=== PATIENT | female | born 1950 | race Caucasian/White ===

== ENCOUNTER 2025-04-04 20:00 | Inpatient (IN) | payer MEDICARE, SELFPAY ==
[2025-04-04] VITALS (8 sets, daily range): BP systolic 97–129; BP diastolic 49–76; PULSE 62–84; RESP 13–20; TEMP 36.3; O2SAT 91–98; BMI 31.7
--- NOTE | ~2025-04-04 | CT_ITS ---
EXAMINATION: CTA chest abdomen pelvis DATE: 04/04/2025 20:43 INDICATION: Chest pain TECHNIQUE: Computed tomographic angiography (CTA) of the chest, abdomen, and pelvis was performed without and with 100 mL Omnipaque-350 intravenous contrast. Additional 3D reconstructions utilizing coronal maximum intensity projection (MIP) were performed. Automated exposure control and iterative reconstruction technique were employed. The dose-length product was 1559.92 mGy-cm. COMPARISON: None FINDINGS: Chest: Cluster of four 4-6 mm pulmonary nodules in the posterior lingula which are most likely infectious/inflammatory in etiology. Mild dependent atelectasis in the bilateral lower lobes. No pneumonia, pulmonary edema, pleural effusion or pneumothorax. Heart size is normal. Atherosclerotic coronary artery ca lcification. No pericardial effusion. Thoracic aorta is normal in caliber with no dissection. Mild thoracic levocurvature with mild spondylosis and bridging osteophytes at multiple levels consistent with diffuse idiopathic skeletal hyperostosis (DISH). Abdomen and pelvis: Gallbladder is not visualized and likely sequela of absent. Liver, spleen, pancreas and bilateral adrenal glands are normal. There are regions of cortical scarring at both kidneys consistent with sequela of prior infection or infarction. 8 mm cyst at the upper pole of the right kidney. Fluid throughout the colon consistent with diarrhea. There is moderate sigmoid predominant diverticulosis without adjacent inflammatory change to suggest diverticulitis. There is edematous-appearing wall thickening along the sigmoid colon suspicious for colitis which could be infectious or inflammatory in etiology. No bowel obstruction. Bladder is normal. The uterus is not identified and has likely been surgically resected. Small amount of either reactive or physiologic free fluid in the pelvis. No abscess or free intraperineal gas. No pathologically enlarged abdominal or pelvic lymphadenopathy. There is small amount of nonhemodynamically significant calcified atherosclerosis of the normal caliber aorta and many of the other arteries. No aortic dissection. Mild thoracolumbar levocurvature with severe lumbar spondylosis. 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 IMPRESSION: 1. Normal caliber thoracic and abdominal aorta with no dissection. 2. Cluster of a few 4-6 mm pulmonary nodules at the posterior lingula which most likely infectious/inflammatory in etiology. If the patient is low risk for lung cancer, no follow-up is needed. If the patient is high risk (i.e., history of smoking or asbestos or significant radiation exposure), optional follow-up chest CT could be considered at 12 months. 3. Edematous-appearing wall thickening along the sigmoid colon suspicious for colitis which could be infectious or inflammatory in etiology. There are however numerous diverticula along the sigmoid colon and this could represent scarring related to chronic diverticulitis. 4. Finally physiologic or reactive free fluid in the pelvis. Reviewed, dictated and finalized at location A. IMPRESSION: 1. Normal caliber thoracic and abdominal aorta with no dissection. 2. Cluster of a few 4-6 mm pulmonary nodules at the posterior lingula which mos t likely infectious/inflammatory in etiology. If the patient is low risk for raquel ng cancer, no follow-up is needed. If the patient is high risk (i.e., history o f smoking or asbestos or significant radiation exposure), optional follow-up est CT could be considered at 12 months. 3. Edematous-appearing wall thickening along the sigmoid colon suspicious for c olitis which could be infectious or inflammatory in etiology. There are however numerous diverticula along the sigmoid colon and this could represent scarring related to chronic diverticulitis. 4. Finally physiologic or reactive free fluid in the pelvis.
--- NOTE | ~2025-04-04 | CT_ITS ---
EXAMINATION: CT brain wo con DATE: 04/04/2025 20:39 INDICATION: Altered mental status. Syncope. TECHNIQUE: Computed tomography (CT) of the head was performed without intravenous contrast. Sagittal and coronal reconstructions were performed. The mA was adjusted according to patient size. Iterative reconstruction technique was employed. The dose-length product was 605.33 mGy-cm. COMPARISON: None FINDINGS: Right ventricular shunt catheter extending through the anterior right frontal hannah hole with distal tip in the anterior horn of the right lateral ventricle. No acute intracranial hemorrhage, acute infarction or abnormal extra axial fluid collection. There is mild scattered white matter hypoattenuation consistent with chronic small vessel ischemic disease. Symmetric prominence of the sulci and subarachnoid spaces overlying the convexities consistent with moderate age- appropriate diffuse cerebral volume loss. Ventricles are normal and symmetric. No mass/mass effect. Intracranial calcified cerebral atherosclerosis is noted. Changes of bilateral intraocular lens replacement. The orbits, paranasal sinuses and mastoid air cells are normal. IMPRESSION: 1. Age-related changes including moderate diffuse volume loss and mild scattered white matter hypoattenuation consistent with chronic small vessel ischemic disease. No acute intracranial process. 2. Right ventricular shunt catheter with tip in the anterior horn of the right lateral ventricle. Reviewed, dictated and finalized at location A. IMPRESSION: 1. Age-related changes including moderate diffuse volume loss and mild scattere d white matter hypoattenuation consistent with chronic small vessel ischemic di sease. No acute intracranial process. 2. Right ventricular shunt catheter with tip in the anterior horn of the right lateral ventricle.
--- NOTE | ~2025-04-04 | US_ITS ---
EXAMINATION: US carotid duplex BI DATE: 04/05/2025 12:35 INDICATION: Syncope TECHNIQUE: Grayscale, color Doppler, and pulsed Doppler images of the cervical carotid arteries were obtained. The degree of vessel stenosis is placed in one of the following categories: normal, <50%, 50-69%, >=70% but less than near- occlusion, near-occlusion, or total occlusion. Note that percent stenosis relative to normal distal artery lumen diameter is indirectly measured from velocity measurements as described by Reyes, et al. Radiology 2003; 229:340-346. COMPARISON: None. FINDINGS: RIGHT: The right common carotid artery (CCA) peak systolic velocity (PSV) is 137 cm/s. The right internal carotid artery (ICA) PSV is 127 cm/s. The right ICA end- diastolic velocity (EDV) is 21 cm/s. The right ICA/CCA PSV ratio is 0.9. Grayscale and color Doppler images including secondary Doppler criteria yield an estimate of <50% diameter reduction from plaque in the ICA. The external carotid artery (ECA) PSV is 164 cm/s. There is antegrade flow in the right vertebral artery. LEFT: The left CCA PSV is 143 cm/s. The left ICA PSV is 180 cm/s. The left ICA EDV is 15 cm/s. The left ICA/CCA PSV ratio is 1.3. Grayscale and color Doppler images yield an estimate of 50-69% diameter reduction from plaque in the ICA. The ECA PSV is 188 cm/s. There is antegrade flow in the left vertebral artery. IMPRESSION: 1. <50% stenosis in the right internal carotid artery. 2. 50-69% stenosis in the left internal carotid artery. Reviewed, dictated and finalized at location A.
--- NOTE | ~2025-04-04 | XR_ITS ---
EXAMINATION: XR chest 1V portable DATE: 04/04/2025 20:13 INDICATION: ST elevation myocardial infarction TECHNIQUE: frontal view of the chest was obtained. COMPARISON: None FINDINGS: The lungs are clear with no focal airspace opacities, pulmonary edema, pleural effusion or pneumothorax. Heart size is normal. Distal tip of a ventriculoatrial shunt projects over the right atrium. Bilateral rotator cuff arthropathy with severe right-sided mild to moderate left-sided glenohumeral osteoarthritis. IMPRESSION: 1. No acute cardiopulmonary disease. Reviewed, dictated and finalized at location A.
--- NOTE | 2025-04-04 19:58 | ECG_ITS ---
Test Date: 2025-04-04 22:09:22 Measurements Intervals [place] Rate: 69 P: 0 OR: 0 QRS: 53 QRSD: 90 T: -2 QT: 397 QTc: 425 Interpretive Statements ATRIAL FIBRILLATION POSSIBLE INFERIOR MYOCARDIAL INFARCTION BORDERLINE ST-T WAVE ABNORMALITY- ANTEROLAT/HIGH LAT LEADS BASELINE ARTIFACT- I, II, III, AVR, AVL, AVF, V1-6 ABNORMAL ECG Compared to ECG 04/04/2025 20:04:35 STEMI NO LONGER PRESENT Electronically Signed On 04-05-2025 05:15:44 CDT by Nima Foreman D.O.
[2025-04-04 20:12] LABS: Hematocrit 32.8 % (37.0-47.0); Hemoglobin 10.1 g/dL (12.0-15.0); Immature Granulocyte Percent A 0.3 % (0-0.5); Lymphocytes Absolute Auto 2.59 K/mm3 (0.9-3.2); Mean Corpuscular HGB Conc 30.8 g/dl (32-36); Mean Corpuscular Hemoglobin 28.1 pg (26-34); Mean Corpuscular Volume 91.1 fl (80-100); Nucleated Red Blood Cells Absolute Auto 0.000 K/mm3 (0.0-0.012); Nucleated Red Blood Cells Perc 0.0 % (0.0-0.2); Platelet Count Result 357 k/mm3 (150-375); Red Blood Count 3.60 M/mm3 (4.2-5.4); White Blood Count 10.1 K/mm3 (4.5-10.0)
[2025-04-04 20:24] LABS: Alanine Aminotransferase 12 U/L (6-35); Albumin Level 3.4 g/dL (3.5-5.1); Alkaline Phosphatase 74 U/L (38-126); Anion Gap 12 mmol/L (4-12); Aspartate Amino Transferase 12 U/L (14-36); Bilirubin,Total 0.3 mg/dL (0.2-1.3); Blood Urea Nitrogen 19 mg/dL (7-17); Calcium 8.3 mg/dL (8.4-10.2); Carbon Dioxide 14 mmol/L (22-30); Chloride 108 mmol/L (98-107); Cholesterol 115 mg/dL (0-200); Estimated Glomerular Filt Rate 41; Glucose 159 mg/dL (65-110); HDL Direct 26 mg/dL; INR 1.2; Partial Thromboplastin Time 36.0 Seconds (22.3-36.8); Potassium 3.8 mmol/L (3.4-5.0); Prothrombin Time 14.8 Seconds (11.1-14.7); Sodium 134 mmol/L (137-145); Total Protein 6.2 g/dL (6.3-8.2); Triglycerides 244 mg/dL (<150)
--- NOTE | 2025-04-04 20:27 | ED.AMS ---
HPI - Altered Mental Status General Chief Complaint: Altered Mental Status Stated Complaint: stemi/stroke Source: patient and EMS Mode of arrival: EMS Limitations: altered mental status History of Present Illness HPI narrative: This is a 75-year-old female with unknown past medical history who presents to the ED via EMS for altered mental status, chest pain. Per EMS, son witnessed the patient syncopized at 7:00 p.m. about hour prior to or on waking after she did begin to complain of chest pain. Patient is unsure what happened but she does not believe that she passed out. Patient does note that she has been having melena for the past 3 months, she is unsure if she saw anyone for that. Related Data Home Medications ?Medication ?Instructions ?Recorded ?Confirmed ?Last Taken ?Type acetaminophen 500 mg capsule 1,000 mg PO TID PRN fever or pain 04/04/25 04/04/25 Unknown History amlodipine 10 mg tablet 10 mg PO DAILY 04/04/25 04/04/25 04/04/25 History aspirin 81 mg tablet 81 mg PO DAILY 04/04/25 04/04/25 04/04/25 History atorvastatin 20 mg tablet 20 mg PO HS 04/04/25 04/04/25 04/03/25 History cholecalciferol (vitamin D3) 25 25 mcg PO DAILY 04/04/25 04/04/25 04/04/25 History mcg (1,000 unit) capsule colestipol 1 gram tablet 1 g PO DAILY 04/04/25 04/04/25 04/04/25 History diclofenac sodium 75 mg 75 mg PO BID 04/04/25 04/04/25 04/04/25 History tablet,delayed release hydralazine 50 mg tablet 50 mg PO BID 04/04/25 04/04/25 04/04/25 History hydrocodone 7.5 mg-acetaminophen 1 tablet PO Q6H PRN pain 04/04/25 04/04/25 04/04/25 History 325 mg tablet levetiracetam 500 mg tablet 500 mg PO BID 04/04/25 04/04/25 04/04/25 History levothyroxine 150 mcg tablet 150 mcg PO DAILY 04/04/25 04/04/25 04/04/25 History lorazepam 1 mg tablet 2 mg PO HS PRN anxiety 04/04/25 04/04/25 04/03/25 History melatonin 10 mg capsule 10 mg PO HS 04/04/25 04/04/25 04/03/25 History metoprolol tartrate 100 mg tablet 100 mg PO BID 04/04/25 04/04/25 04/04/25 History pantoprazole 40 mg tablet,delayed 40 mg PO BID 04/04/25 04/04/25 04/04/25 History release paroxetine HCl 10 mg tablet 10 mg PO DAILY 04/04/25 04/04/25 04/04/25 History valsartan 80 mg tablet 80 mg PO DAILY 04/04/25 04/04/25 04/04/25 History Allergies Allergy/AdvReac Type Severity Reaction Status Date / Time iodine Allergy Intermediate Itching Verified 04/04/25 22:35 Sulfa (Sulfonamide Allergy Unknown Unknown Verified 04/04/25 22:35 Antibiotics) [facility] Family History Family History (Updated 04/04/25 @ 22:40 by Rashida Gagnon RN) Mother Cancer, uterine Father Cardiac complications Cancer, colon Bypass graft stenosis Social History Social History Smoking packs per day: 0.5 Smoking cigarettes per day: 10.0 Years smoked: 15 Smoking pack-years: 7.50 Smoking status: Former smoker Tobacco type: cigarettes Alcohol intake: never Substance use: never Lack of Transportation: No Lack of Food: Never True Current Housing: I Have Housing Concerned About Future Housing: No Difficulty Paying Gas/Electric Bills: No Difficulty Paying for Meds: No Currently Unemployed: No Education: High School Diploma/GED Difficulty w/ Childcare or Family Care: No Spiritual care concerns: No Course Vital Signs Vital signs: Vital Signs Pulse Rate 67 04/04/25 20:00 Respiratory Rate 20 04/04/25 20:00 Blood Pressure 97/59 L 04/04/25 20:00 Pulse Oximetry 97 04/04/25 20:00 Oxygen Delivery Room Air 04/04/25 20:00 Temperature 98.2 F 04/05/25 00:00 Pulse Rate 100 04/05/25 02:34 Respiratory Rate 19 04/05/25 02:34 Blood Pressure 111/65 04/05/25 02:34 Pulse Oximetry 90 04/05/25 02:34 Oxygen Delivery Room Air 04/05/25 00:00 MDM - Altered Mental Status MDM Narrative Medical decision making narrative: 75-year-old female presenting syncope, chest pain, altered mental status. On initial evaluation, patient was in mild distress afebrile, hemodynamically stable. She was actively having chest pain. She did not recall the events of the day the this event but reported syncopal episode. She did recall that she had been having darker stools for the past 3 months intermittently. No focal deficits at this time. The EKG transmitted by EMS did show concerns for inferior wall STEMI. EKG performed here also showed the same. I discussed the case cardiology, Dr. Henry, given patient's melena, wanted to ensure that hemoglobin was within normal limits prior to labor economics teacher activation. Given the constellation of symptoms, is also imperative to rule out aortic dissection. Initial chest x-ray showed borderline widened mediastinum so CTA chest/abdomen/pelvis was performed with wet read performed my myself that showed no evidence of aortic dissection. Hemoglobin was 10.1. I discussed this with security operations engineer again will take patient to labor economics teacher. Did request patient be started on a heparin bolus. Differential Diagnosis Differential diagnosis: Likely other (ACS, stroke, aortic dissection) Medical Records Attestation: I reviewed the patient's medical records. Lab Data Attestation: I reviewed the patient's lab results. 04/04/25 20:06 04/04/25 20:06 Labs: Lab Results 04/04/25 04/04/25 04/04/25 Range/Units 20:06 20:06 20:06 WBC 10.1 H (4.5-10.0) K/mm3 RBC 3.60 L (4.2-5.4) M/mm3 Hgb 10.1 L (12.0-15.0) g/dL Hct 32.8 L (37.0-47.0) % MCV 91.1 (80-100) fl MCH 28.1 (26-34) pg MCHC 30.8 L (32-36) g/dl RDW 14.4 (11.5-14.5) % Plt Count 357 (150-375) k/mm3 MPV 11.0 H (7.4-10.4) fl Immature Gran % (Auto) 0.3 (0-0.5) % Neut % (Auto) 58.3 (45.5-73.1) % Lymph % (Auto) 25.6 (18.3-44.2) % [place] % (Auto) 12.7 H (2.6-8.5) % Eos % (Auto) 2.4 (0-4.4) % Baso % (Auto) 0.7 (0.2-1.2) % Lymph # (Auto) 2.59 (0.9-3.2) K/mm3 [place] # (Auto) 1.3 H (0.1-0.6) K/mm3 Eos # (Auto) 0.2 (0-0.3) K/mm3 Baso # (Auto) 0.1 (0.0-0.1) K/mm3 Abs Immat Gran (auto) 0.03 (0.00-0.031) K/mm3 Absolute Neuts (auto) 5.9 (1.3-6.7) K/mm3 Absolute Nucleated RBC 0.000 (0.0-0.012) K/mm3 Nucleated RBC % 0.0 (0.0-0.2) % PT 14.8 H (11.1-14.7) Seconds INR 1.2 APTT 36.0 (22.3-36.8) Seconds Sodium Cancelled 134 L Potassium Cancelled 3.8 Chloride Cancelled Carbon Dioxide Anion Gap BUN Creatinine Estim Creat Clear Calc Estimated GFR Glucose POC Capillary Glucose (65-105) mg/dl Calcium Total Bilirubin AST ALT Alkaline Phosphatase Troponin I (0.000-0.034) ng/mL Total Protein Albumin Triglycerides (<150) mg/dL Cholesterol (0-200) mg/dL LDL Cholesterol Direct mg/dL HDL Direct mg/dL Blood Type Antibody Screen 04/04/25 04/04/25 04/04/25 Range/Units 20:06 20:06 20:06 WBC (4.5-10.0) K/mm3 RBC (4.2-5.4) M/mm3 Hgb (12.0-15.0) g/dL Hct (37.0-47.0) % MCV (80-100) fl MCH (26-34) pg MCHC (32-36) g/dl RDW (11.5-14.5) % Plt Count (150-375) k/mm3 MPV (7.4-10.4) fl Immature Gran % (Auto) (0-0.5) % Neut % (Auto) (45.5-73.1) % Lymph % (Auto) (18.3-44.2) % [place] % (Auto) (2.6-8.5) % Eos % (Auto) (0-4.4) % Baso % (Auto) (0.2-1.2) % Lymph # (Auto) (0.9-3.2) K/mm3 [place] # (Auto) (0.1-0.6) K/mm3 Eos # (Auto) (0-0.3) K/mm3 Baso # (Auto) (0.0-0.1) K/mm3 Abs Immat Gran (auto) (0.00-0.031) K/mm3 Absolute Neuts (auto) (1.3-6.7) K/mm3 Absolute Nucleated RBC (0.0-0.012) K/mm3 Nucleated RBC % (0.0-0.2) % PT (11.1-14.7) Seconds INR APTT (22.3-36.8) Seconds Sodium Potassium Chloride 108 H Carbon Dioxide Cancelled 14 L Anion Gap Cancelled 12 BUN Cancelled Creatinine Estim Creat Clear Calc Estimated GFR Glucose POC Capillary Glucose (65-105) mg/dl Calcium Total Bilirubin AST ALT Alkaline Phosphatase Troponin I (0.000-0.034) ng/mL Total Protein Albumin Triglycerides (<150) mg/dL Cholesterol (0-200) mg/dL LDL Cholesterol Direct mg/dL HDL Direct mg/dL Blood Type Antibody Screen 04/04/25 04/04/25 04/04/25 Range/Units 20:06 20:06 20:06 WBC (4.5-10.0) K/mm3 RBC (4.2-5.4) M/mm3 Hgb (12.0-15.0) g/dL Hct (37.0-47.0) % MCV (80-100) fl MCH (26-34) pg MCHC (32-36) g/dl RDW (11.5-14.5) % Plt Count (150-375) k/mm3 MPV (7.4-10.4) fl Immature Gran % (Auto) (0-0.5) % Neut % (Auto) (45.5-73.1) % Lymph % (Auto) (18.3-44.2) % [place] % (Auto) (2.6-8.5) % Eos % (Auto) (0-4.4) % Baso % (Auto) (0.2-1.2) % Lymph # (Auto) (0.9-3.2) K/mm3 [place] # (Auto) (0.1-0.6) K/mm3 Eos # (Auto) (0-0.3) K/mm3 Baso # (Auto) (0.0-0.1) K/mm3 Abs Immat Gran (auto) (0.00-0.031) K/mm3 Absolute Neuts (auto) (1.3-6.7) K/mm3 Absolute Nucleated RBC (0.0-0.012) K/mm3 Nucleated RBC % (0.0-0.2) % PT (11.1-14.7) Seconds INR APTT (22.3-36.8) Seconds Sodium Potassium Chloride Carbon Dioxide Anion Gap BUN 19 H Creatinine Cancelled 1.28 H Estim Creat Clear Calc Cancelled Not Reportable Estimated GFR Cancelled Glucose POC Capillary Glucose (65-105) mg/dl Calcium Total Bilirubin AST ALT Alkaline Phosphatase Troponin I (0.000-0.034) ng/mL Total Protein Albumin Triglycerides (<150) mg/dL Cholesterol (0-200) mg/dL LDL Cholesterol Direct mg/dL HDL Direct mg/dL Blood Type Antibody Screen 04/04/25 04/04/25 04/04/25 Range/Units 20:06 20:06 20:06 WBC (4.5-10.0) K/mm3 RBC (4.2-5.4) M/mm3 Hgb (12.0-15.0) g/dL Hct (37.0-47.0) % MCV (80-100) fl MCH (26-34) pg MCHC (32-36) g/dl RDW (11.5-14.5) % Plt Count (150-375) k/mm3 MPV (7.4-10.4) fl Immature Gran % (Auto) (0-0.5) % Neut % (Auto) (45.5-73.1) % Lymph % (Auto) (18.3-44.2) % [place] % (Auto) (2.6-8.5) % Eos % (Auto) (0-4.4) % Baso % (Auto) (0.2-1.2) % Lymph # (Auto) (0.9-3.2) K/mm3 [place] # (Auto) (0.1-0.6) K/mm3 Eos # (Auto) (0-0.3) K/mm3 Baso # (Auto) (0.0-0.1) K/mm3 Abs Immat Gran (auto) (0.00-0.031) K/mm3 Absolute Neuts (auto) (1.3-6.7) K/mm3 Absolute Nucleated RBC (0.0-0.012) K/mm3 Nucleated RBC % (0.0-0.2) % PT (11.1-14.7) Seconds INR APTT (22.3-36.8) Seconds Sodium Potassium Chloride Carbon Dioxide Anion Gap BUN Creatinine Estim Creat Clear Calc Estimated GFR 41 L Glucose Cancelled 159 H POC Capillary Glucose (65-105) mg/dl Calcium Cancelled 8.3 L Total Bilirubin Cancelled AST ALT Alkaline Phosphatase Troponin I (0.000-0.034) ng/mL Total Protein Albumin Triglycerides (<150) mg/dL Cholesterol (0-200) mg/dL LDL Cholesterol Direct mg/dL HDL Direct mg/dL Blood Type Antibody Screen 04/04/25 04/04/25 04/04/25 Range/Units 20:06 20:06 20:06 WBC (4.5-10.0) K/mm3 RBC (4.2-5.4) M/mm3 Hgb (12.0-15.0) g/dL Hct (37.0-47.0) % MCV (80-100) fl MCH (26-34) pg MCHC (32-36) g/dl RDW (11.5-14.5) % Plt Count (150-375) k/mm3 MPV (7.4-10.4) fl Immature Gran % (Auto) (0-0.5) % Neut % (Auto) (45.5-73.1) % Lymph % (Auto) (18.3-44.2) % [place] % (Auto) (2.6-8.5) % Eos % (Auto) (0-4.4) % Baso % (Auto) (0.2-1.2) % Lymph # (Auto) (0.9-3.2) K/mm3 [place] # (Auto) (0.1-0.6) K/mm3 Eos # (Auto) (0-0.3) K/mm3 Baso # (Auto) (0.0-0.1) K/mm3 Abs Immat Gran (auto) (0.00-0.031) K/mm3 Absolute Neuts (auto) (1.3-6.7) K/mm3 Absolute Nucleated RBC (0.0-0.012) K/mm3 Nucleated RBC % (0.0-0.2) % PT (11.1-14.7) Seconds INR APTT (22.3-36.8) Seconds Sodium Potassium Chloride Carbon Dioxide Anion Gap BUN Creatinine Estim Creat Clear Calc Estimated GFR Glucose POC Capillary Glucose (65-105) mg/dl Calcium Total Bilirubin 0.3 AST Cancelled 12 L ALT Cancelled 12 Alkaline Phosphatase Cancelled Troponin I (0.000-0.034) ng/mL Total Protein Albumin Triglycerides (<150) mg/dL Cholesterol (0-200) mg/dL LDL Cholesterol Direct mg/dL HDL Direct mg/dL Blood Type Antibody Screen 04/04/25 04/04/25 04/04/25 Range/Units 20:06 20:06 20:06 WBC (4.5-10.0) K/mm3 RBC (4.2-5.4) M/mm3 Hgb (12.0-15.0) g/dL Hct (37.0-47.0) % MCV (80-100) fl MCH (26-34) pg MCHC (32-36) g/dl RDW (11.5-14.5) % Plt Count (150-375) k/mm3 MPV (7.4-10.4) fl Immature Gran % (Auto) (0-0.5) % Neut % (Auto) (45.5-73.1) % Lymph % (Auto) (18.3-44.2) % [place] % (Auto) (2.6-8.5) % Eos % (Auto) (0-4.4) % Baso % (Auto) (0.2-1.2) % Lymph # (Auto) (0.9-3.2) K/mm3 [place] # (Auto) (0.1-0.6) K/mm3 Eos # (Auto) (0-0.3) K/mm3 Baso # (Auto) (0.0-0.1) K/mm3 Abs Immat Gran (auto) (0.00-0.031) K/mm3 Absolute Neuts (auto) (1.3-6.7) K/mm3 Absolute Nucleated RBC (0.0-0.012) K/mm3 Nucleated RBC % (0.0-0.2) % PT (11.1-14.7) Seconds INR APTT (22.3-36.8) Seconds Sodium Potassium Chloride Carbon Dioxide Anion Gap BUN Creatinine Estim Creat Clear Calc Estimated GFR Glucose POC Capillary Glucose (65-105) mg/dl Calcium Total Bilirubin AST ALT Alkaline Phosphatase 74 Troponin I < 0.012 (0.000-0.034) ng/mL Total Protein Cancelled 6.2 L Albumin Cancelled 3.4 L Triglycerides 244 H (<150) mg/dL Cholesterol 115 (0-200) mg/dL LDL Cholesterol Direct 44 mg/dL HDL Direct 26 mg/dL Blood Type O Positive Antibody Screen Negative 04/04/25 Range/Units 20:08 WBC (4.5-10.0) K/mm3 RBC (4.2-5.4) M/mm3 Hgb (12.0-15.0) g/dL Hct (37.0-47.0) % MCV (80-100) fl MCH (26-34) pg MCHC (32-36) g/dl RDW (11.5-14.5) % Plt Count (150-375) k/mm3 MPV (7.4-10.4) fl Immature Gran % (Auto) (0-0.5) % Neut % (Auto) (45.5-73.1) % Lymph % (Auto) (18.3-44.2) % [place] % (Auto) (2.6-8.5) % Eos % (Auto) (0-4.4) % Baso % (Auto) (0.2-1.2) % Lymph # (Auto) (0.9-3.2) K/mm3 [place] # (Auto) (0.1-0.6) K/mm3 Eos # (Auto) (0-0.3) K/mm3 Baso # (Auto) (0.0-0.1) K/mm3 Abs Immat Gran (auto) (0.00-0.031) K/mm3 Absolute Neuts (auto) (1.3-6.7) K/mm3 Absolute Nucleated RBC (0.0-0.012) K/mm3 Nucleated RBC % (0.0-0.2) % PT (11.1-14.7) Seconds INR APTT (22.3-36.8) Seconds Sodium Potassium Chloride Carbon Dioxide Anion Gap BUN Creatinine Estim Creat Clear Calc Estimated GFR Glucose POC Capillary Glucose 151 H (65-105) mg/dl Calcium Total Bilirubin AST ALT Alkaline Phosphatase Troponin I (0.000-0.034) ng/mL Total Protein Albumin Triglycerides (<150) mg/dL Cholesterol (0-200) mg/dL LDL Cholesterol Direct mg/dL HDL Direct mg/dL Blood Type Antibody Screen Imaging Data Attestation: I personally reviewed and interpreted this imaging study as follows: (CTA chest/abdomen/pelvis: No acute aortic dissection) My impression: Chest x-ray: Borderline widened mediastinum Radiologist's impression: CTA chest/abdomen/pelvis IMPRESSION: 1. Normal caliber thoracic and abdominal aorta with no dissection. 2. Cluster of a few 4-6 mm pulmonary nodules at the posterior lingula which most likely infectious/inflammatory in etiology. If the patient is low risk for lung cancer, no follow-up is needed. If the patient is high risk (i.e., history of smoking or asbestos or significant radiation exposure), optional follow-up chest CT could be considered at 12 months. 3. Edematous-appearing wall thickening along the sigmoid colon suspicious for colitis which could be infectious or inflammatory in etiology. There are however numerous diverticula along the sigmoid colon and this could represent scarring related to chronic diverticulitis. 4. Finally physiologic or reactive free fluid in the pelvis. ECG Data EKG #1: Attestation: I personally reviewed and interpreted this ECG as follows: ECG completion date: 04/04/25 ECG completion time: 19:31 Interpretation: AFib rate of 66, normal axis, ST elevations and 2, 3, AVF with ST depressions in 1, aVL, V2 through V4. EKG #2: Attestation: I personally reviewed and interpreted this ECG as follows: ECG completion date: 04/05/25 ECG completion time: 20:04 Prior ECG tracings: available for review Interpretation: AFib rate of 63, normal axis, ST elevations and 2, 3, AVF with ST depressions in aVL and V2 through V4. No significant change from earlier Discharge Plan Discharge Clinical Impression: ST elevation (STEMI) myocardial infarction Qualifiers: Involved coronary artery: unspecified coronary artery Qualified Code(s): I21.3 - ST elevation (STEMI) myocardial infarction of unspecified site Syncope Qualifiers: Syncope type: unspecified Qualified Code(s): R55 - Syncope and collapse Patient Disposition: Still a Patient Condition: Serious
[2025-04-04 20:35] LABS: Troponin I < 0.012 ng/mL (0.000-0.034)
[2025-04-04] MEDS: ASPIRIN 81 MG CHEWABLE TABLET 324 MG PO (20:53)
--- NOTE | 2025-04-04 21:36 | PM.CNCAR ---
Assessment and Plan Assessment and plan (1) ST elevation (STEMI) myocardial infarction: Code(s): I21.3 - ST elevation (STEMI) myocardial infarction of unspecified site Status: Acute Plan STEMI inferior wall Syncope and presentation likely STEMI Anemia Chronic diarrhea Hypertension Anemia CKD stage 3 Plan Emergency left heart catheterization Status post cardiac catheterization and acute total occlusion RCA status post PCI with 1 drug-eluting stent, residual moderate disease in the LAD and moderate to severe disease and intermediate sized left circumflex. Aspirin Plavix Transthoracic echocardiogram Statin Evaluation of abdominal pain. CT of the abdomen and pelvis History of Present Illness History of Present Illness Consult date/time: 04/04/25 21:36 Reason For Visit: stemi/stroke Narrative: 75-year-old female patient presents to the hospital with acute episode of chest pain. Chest pain started today. With acute severe retrosternal nonradiating. Chest pain was aching without precipitating relieving factors. Per chart review and discussion with ER physician the patient had an episode of syncope appeared pale for family members and has altered mental status on recovery. Her mental status improved gradually but continued to have persistent chest pain. Patient has been complaining of abdominal pain associated with diarrhea for several months. She has mentioned about dark stool Review of Systems Review of Systems: All systems reviewed & are unremarkable except as noted in HPI and below Meds Vital Signs Vital Signs - 24 hr 04/04/25 20:00 04/04/25 20:17 04/04/25 20:17 Temperature Pulse Rate 67 62 Respiratory Rate 20 Blood Pressure 97/59 L Pulse Oximetry 97 97 Oxygen Delivery Room Air Room Air 04/04/25 20:17 Temperature 36.3 C L Pulse Rate 72 Respiratory Rate 16 Blood Pressure 97/59 L Pulse Oximetry 95 Oxygen Delivery Exam Const: General: comfortable and no acute distress Other: Able to lie flat HENMT: Face/Nose/Sinus: Normal nares present and no epistaxis Mouth: Yes moist mucous membranes Eyes: Sclera: sclerae normal Pupils: Equal, round and reactive pupils present Neck: Neck: supple and no JVD Carotids: no bruits Resp: Auscultation: clear to auscultation bilaterally and lung sounds not diminished Other: No chest wall tenderness Cardio: Rate: regular rate Rhythm: regular rhythm Heart sounds: no gallops, no murmurs and no rubs GI: GI Palp: Yes Soft to palpation and No Tenderness to palpation present (GI) Auscultation: normal bowel sounds Skin: General skin exam: normal color, rashes and/or lesions noted and no erythema Other: Warm Neuro: Cranial nerves: Yes Equal, round and reactive pupils present Speech: normal speech Other: No obvious focal deficit or facial asymmetry Extrem: General: no edema Other: Normal capillary refills Intact distal pulses. Results Labs and Meds 04/04/25 20:06 04/04/25 20:06 Lab results: Cardiac Enzymes 04/04/25 04/04/25 Range/Units 20:06 20:06 AST Cancelled 12 L Troponin I < 0.012 (0.000-0.034) ng/mL Coagulation 04/04/25 Range/Units 20:06 PT 14.8 H (11.1-14.7) Seconds APTT 36.0 (22.3-36.8) Seconds Lipids 04/04/25 Range/Units 20:06 Triglycerides 244 H (<150) mg/dL Cholesterol 115 (0-200) mg/dL CBC 04/04/25 Range/Units 20:06 WBC 10.1 H (4.5-10.0) K/mm3 RBC 3.60 L (4.2-5.4) M/mm3 Hgb 10.1 L (12.0-15.0) g/dL Hct 32.8 L (37.0-47.0) % Plt Count 357 (150-375) k/mm3 Lymph # (Auto) 2.59 (0.9-3.2) K/mm3 [place] # (Auto) 1.3 H (0.1-0.6) K/mm3 Eos # (Auto) 0.2 (0-0.3) K/mm3 Baso # (Auto) 0.1 (0.0-0.1) K/mm3 Comprehensive Metabolic Panel 04/04/25 04/04/25 04/04/25 Range/Units 20:06 20:06 20:06 Sodium Cancelled 134 L Potassium Cancelled 3.8 Chloride Cancelled Carbon Dioxide BUN Creatinine Glucose Calcium AST ALT Alkaline Phosphatase Total Protein Albumin 04/04/25 04/04/25 04/04/25 Range/Units 20:06 20:06 20:06 Sodium Potassium Chloride 108 H Carbon Dioxide Cancelled 14 L BUN Cancelled 19 H Creatinine Cancelled Glucose Calcium AST ALT Alkaline Phosphatase Total Protein Albumin 04/04/25 04/04/25 04/04/25 Range/Units 20:06 20:06 20:06 Sodium Potassium Chloride Carbon Dioxide BUN Creatinine 1.28 H Glucose Cancelled 159 H Calcium Cancelled 8.3 L AST Cancelled ALT Alkaline Phosphatase Total Protein Albumin 04/04/25 04/04/25 04/04/25 Range/Units 20:06 20:06 20:06 Sodium Potassium Chloride Carbon Dioxide BUN Creatinine Glucose Calcium AST 12 L ALT Cancelled 12 Alkaline Phosphatase Cancelled 74 Total Protein Cancelled Albumin 04/04/25 04/04/25 Range/Units 20:06 20:06 Sodium Potassium Chloride Carbon Dioxide BUN Creatinine Glucose Calcium AST ALT Alkaline Phosphatase Total Protein 6.2 L Albumin Cancelled 3.4 L Patient Weight 04/04/25 23:59 Weight 67 kg
--- NOTE | 2025-04-04 21:40 | WPDCARDPROC ---
Cardiac Cath Procedure Note Date of procedure:: 04/04/25 Performing physician:: Dav Henry MD Indication:: STEMI Procedure Procedure performed:: C and Coronary angiogram PCI to acute total occlusion of RCA with one TERESA Sedation/Medication given:: Patient did not receive sedation and only treated with local anesthetic lidocaine Access site:: Right femoral access was draped and prepped in a sterile fashion Access site was obtained using modified Seldinger technique and 6 [place] sheath was inserted without difficulty Estimated blood loss:: Less than 50 mL Procedure note:: Coronary angiogram was performed using JL4 for the left coronary and a JR4 for right coronary. Aortic valve was crossed using a JR4 and LVEDP was measured. No LV-gram was performed. Coronary artery intervention to the right RCA Anticoagulation was heparin with a target ACT more than 250 JR4 guide was used the lesion was crossed without difficulty using a run-through wire. Aspiration thrombectomy was done using penumbra. No clot was aspirated. But flow was established to the vessel Balloon angioplasty was done using 2.5 balloon followed by stenting using lonny 3.5 x 12 @ 12 ZULMA Preintervention angiogram, acute total occlusion distal RCA, class B, REUBEN 0 Final angiogram post intervention no residual stenosis, and REUBEN 3 flow established No perforation dissection or embolization Findings:: Left main normal LAD diffuse mild disease and mid LAD 70% stenosis Left circumflex gives rise to OM and continue is intermediate size vessel with diffuse 70-80% stenosis. RCA with acute distal total occlusion; PCI was performed to the RCA as detailed above using aspiration thrombectomy and drug eluting stent lonny 3.5 x 12 Angiogram for the bladder showed possible mass effect on the bladder Conclusion:: Successful PCI to acute distal RCA acute total occlusion using 1 drug-eluting stent lonny 3.5 x 12 Residual moderate disease in the LAD and moderate to severe disease in the intermediate size distal left circumflex Abnormal contour of the bladder and a final picture Assessment and Plan Assessment and plan (1) ST elevation (STEMI) myocardial infarction: Code(s): I21.3 - ST elevation (STEMI) myocardial infarction of unspecified site Status: Acute Plan Aspirin Plavix Transthoracic echocardiogram Staged IFR to the LAD CT abdomen
--- NOTE | 2025-04-04 21:51 | ECG_ITS ---
Test Date: 2025-04-04 20:04:35 Measurements Intervals [place] Rate: 63 P: 0 CO: 0 QRS: 52 QRSD: 106 T: 104 QT: 425 QTc: 438 Interpretive Statements ATRIAL FIBRILLATION INFERIOR ST ELEVATION MYOCARDIAL INFARCT- ACUTE RECIPROCAL ST DEPRESSION IN HIGH LATERAL LEADS BASELINE ARTIFACT- I, II, III, AVR, AVL, AVF, V1-V3 ABNORMAL ECG No previous ECG available for comparison Electronically Signed On 04-05-2025 05:14:10 CDT by Nima Foreman D.O.
[2025-04-04] MEDS: SODIUM CHLORIDE 0.9% IV 1,000 ML 75 ML IV CONT (22:21)
--- NOTE | 2025-04-04 22:33 | ADMGEN ---
This patient, Kym Jaramillo, was admitted to Intensive Care Unit-6. Patient/family oriented to hospital policies and general routines including ID bracelet, bed and alarms, visiting hours, pain management, procedures, bathroom and other care routines, personal items, smoking policy, room service/diet, and visiting hours. Information on how to activate the Rapid Response Team has been discussed. Patient/Family are encouraged to report perceived risks to care and to ask questions if they do not understand what they are told or what they should do.
--- NOTE | 2025-04-04 22:53 | PC.NURSE ---
Patient stent card given to Abelardo () who is at bedside. Updated information on the importance of keeping stent card on patient at all times.
[2025-04-05] VITALS (21 sets, daily range): BP systolic 104–173; BP diastolic 40–130; PULSE 65–106; RESP 12–20; TEMP 36.4–36.8; O2SAT 90–99
--- NOTE | 2025-04-05 | ECHO_ITS ---
Patient Info Name: Kym Jaramillo Age: 75 years : 1950 Gender: Female Ht: 63 in Wt: 147 lbs BSA: 1.74 m2 HR: 65 bpm BP: 108 / 45 mmHg Technical Quality: Good Exam Date: 04/05/2025 9:30 AM Patient Status: I Admit Date: 04/04/2025 Exam Type: CA echo doppler color flow Complete two-dimensional, color flow and Doppler transthoracic echocardiogram is performed. Staff Referring Physician: Shirin Wall Staff Development Coordinator: Jorge Coello III Attending Provider: Dav Henry Summary 1. Complete two-dimensional, color flow and Doppler transthoracic echocardiogram is performed. 2. Left ventricular systolic function is normal, estimated at 60-65. 3. The left ventricular diastolic function is grade II diastolic dysfunction. 4. Left atrial chamber dimension is mildly enlarged. 5. There is mild mitral valve regurgitation. 6. There is mild tricuspid valve regurgitation. 7. No pulmonary hypertension, estimated pulmonary arterial systolic pressure is 46 mmHg. Left Ventricle Left ventricular chamber dimension is normal. Left ventricular systolic function is normal, estimated at 60-65. There is no increased left ventricular wall thickness. Left ventricular septal wall motion is normal. The left ventricular diastolic function is grade II diastolic dysfunction. Right Ventricle Right ventricular chamber dimension is normal. Right ventricular systolic function is normal. Left Atria Left atrial chamber dimension is mildly enlarged. Right Atria Right atrial chamber dimension is normal. Aortic Valve The aortic valve is trileaflet. There is no aortic valve sclerosis. There is no aortic valve stenosis. There is no aortic valve regurgitation. Pulmonic Valve The pulmonic valve is normal. There is no pulmonic valve stenosis. There is no pulmonic regurgitation. Mitral Valve The mitral valve has normal leaflets. There is no mitral valve stenosis. There is mild mitral valve regurgitation. There is mild mitral valve calcification. Tricuspid Valve The tricuspid valve leaflets are normal. There is no significant tricuspid valve stenosis. There is mild tricuspid valve regurgitation. No pulmonary hypertension, estimated pulmonary arterial systolic pressure is 46 mmHg. Pericardium/Pleural The pericardium appears normal. There is no pericardial effusion. Inferior Vena Cava Normal inferior vena cava with >50% collapse upon inspiration consistent with normal right atrial pressure, 5 mmHg. Aorta The aortic root size at the sinus of Valsalva is normal. The prox ascending aorta size is normal. Left Ventricular Outflow Tract Name Value Normal LVOT 2D LVOT Diameter 2.3 cm LVOT Doppler LVOT Peak Velocity 106 cm/s LVOT Peak Gradient 5 mmHg LVOT Mean Gradient 2 mmHg LVOT VTI 25 cm LVOT VTI/AV VTI Ratio 0.8 LVOT Stroke Volume 106 ml LVOT CO 7.4 l/min LVOT CI 4.3 l/min/m2 Pulmonic Valve Name Value Normal PV Doppler PV Peak Velocity 111 cm/s PV Peak Gradient 5 mmHg PV Mean Gradient 3 mmHg Mitral Valve Name Value Normal MV Doppler MV Peak Gradient 9 mmHg MV Mean Gradient 4 mmHg MV Area (Cont Eq VTI) 2.8 cm2 MV Regurgitation Doppler MR Peak Gradient 72 mmHg MV Diastolic Function MV E Peak Velocity 149 cm/s MV A Peak Velocity 105 cm/s MV E/A 1.4 MV Decel Time (PW) 200 ms MV Annular TDI MV E/e' (Septal) 16.8 MV E/e' (Lateral) 19.9 MV E/e' (Average) 18.4 Tricuspid Valve Name Value Normal TV Regurgitation Doppler TR Peak Velocity 321 cm/s TR Peak Gradient 41 mmHg Estimated PAP/RSVP RA Pressure 5 mmHg <=5 PA Systolic Pressure 46 mmHg <36 RV Systolic Pressure 46 mmHg <36 TV Annular TDI TV Lateral Dorcas s' Velocity 17.1 cm/s >=9.5 Aortic Valve Name Value Normal AV Doppler AV Peak Velocity 150 cm/s AV Peak Gradient 9 mmHg AV Mean Gradient 5 mmHg AV VTI 31 cm AV Area (Cont Eq VTI) 3.4 cm2 >=3.0 AV Area (Cont Eq Dieter) 3.0 cm2 AV DI (Dieter) 0.71 AV Regurgitation 2D LVOT Area 4.3 cm2 Ventricles Name Value Normal LV Dimensions 2D/MM IVS Diastolic Thickness (2D) 1.0 cm 0.6-1.0 LVID Diastole (2D) 4.3 cm 3.8-5.2 LVIW Diastolic Thickness (2D) 0.9 cm 0.6-0.9 LVID Systole (2D) 2.9 cm 2.2-3.5 LVOT Diameter 2.3 cm LV Mass (2D Cubed) 135.10 g 67.00-162.00 LV Mass Index (2D Cubed) 78 g/m2 43-95 Relative Wall Thickness (2D) 0.39 <=0.42 LV Fractional Shortening/Ejection Fraction 2D/MM LV Fractional Shortening (2D) 33 % 27-45 LV EF (2D Teichholz) 62 % LV Diastolic Volume (4C MOD) 77 ml LV EF (4C MOD) 71 % LV Diastolic Volume (2C MOD) 73 ml LV EF (2C MOD) 66 % LV Diastolic Volume (BP MOD) 76 ml 46-106 LV Diastolic Volume Index (BP MOD) 44 ml/m2 29-61 LV Systolic Volume (BP MOD) 25 ml 14-42 LV Systolic Volume Index (BP MOD) 14 ml/m2 8-24 LV EF (BP MOD) 68 % 54-74 LV Diastolic Length (4C) 7.7 cm LV Systolic Length (4C) 5.8 cm LV Stroke Volume (4C MOD) 54 ml Atria Name Value Normal LA Dimensions LA Volume (4C A-L) 36 ml LA Volume (BP A-L) 50 ml RA Dimensions RA Systolic Major [place] Length (4C) 5.4 cm 2.2-2.8 RA Area (4C) 17.6 cm2 <=18.0 Report Signatures
[2025-04-05] MEDS: MELATONIN 5 MG TABLET 10 MG PO ×2 (01:04→20:37)
[2025-04-05] MEDS: LORazepam (*CRX) 1 MG TABLET PO (01:04)
[2025-04-05 01:49] LABS: Troponin I 23.400 ng/mL (0.000-0.034)
--- NOTE | 2025-04-05 04:18 | ECG_ITS ---
Test Date: 2025-04-05 04:35:11 Measurements Intervals [place] Rate: 66 P: 76 AR: 185 QRS: -1 QRSD: 88 T: -19 QT: 405 QTc: 427 Interpretive Statements SINUS RHYTHM INFERIOR INFARCT, AGE INDETERMINATE BASELINE ARTIFACT- I, II, III, AVR, AVL, AVF, V1-V6 ABNORMAL ECG Compared to ECG 04/04/2025 22:09:22 Atrial fibrillation no longer present Electronically Signed On 04-05-2025 05:16:22 CDT by Nima Foreman D.O.
[2025-04-05 04:39] LABS: Hematocrit 35.2 % (37.0-47.0); Hemoglobin 10.9 g/dL (12.0-15.0); Immature Granulocyte Percent A 0.1 % (0-0.5); Lymphocytes Absolute Auto 0.75 K/mm3 (0.9-3.2); Mean Corpuscular HGB Conc 31.0 g/dl (32-36); Mean Corpuscular Hemoglobin 27.8 pg (26-34); Mean Corpuscular Volume 89.8 fl (80-100); Nucleated Red Blood Cells Absolute Auto 0.000 K/mm3 (0.0-0.012); Nucleated Red Blood Cells Perc 0.0 % (0.0-0.2); Platelet Count Result 321 k/mm3 (150-375); Red Blood Count 3.92 M/mm3 (4.2-5.4); White Blood Count 7.0 K/mm3 (4.5-10.0)
[2025-04-05 04:53] LABS: Anion Gap 13 mmol/L (4-12); Blood Urea Nitrogen 17 mg/dL (7-17); Calcium 8.7 mg/dL (8.4-10.2); Carbon Dioxide 15 mmol/L (22-30); Chloride 106 mmol/L (98-107); Estimated CRCL calculation 44 ml/min; Estimated Glomerular Filt Rate 54; Glucose 247 mg/dL (65-110); Potassium 4.0 mmol/L (3.4-5.0); Sodium 134 mmol/L (137-145)
[2025-04-05 05:16] LABS: Troponin I 32.700 ng/mL (0.000-0.034)
--- OUTSIDE RECORDS SUMMARY | 2025-04-05 07:54 | XMS_ITS | Clinical Summary ---
Author Organization [facility] Address [address] [place] [address] Care Team Providers Care Propulsion Generator Repairer Name Role Phone Truong Higgins MD Primary Care Provider Allergies Active Allergy Reactions Criticality Noted Date Comments Jose Inhibitors Rash Medium 08/17/2016 Iodine Itching Low 10/06/2018 Iodine And Iodide Containing Products Hives,Itching Medium Sulfa (Sulfonamide Antibiotics) Hives Medium 08/12/[address] (VOLTAREN) 75 mg EC tablet Take 75 mg by mouth 2 (two) times a day after breakfast and dinner 4 8 Active aspirin 81 mg tablet Take 1 tablet (81 mg total) by mouth every morning 4 Active metoprolol (LOPRESSOR) 100 mg tablet Take 1 tablet (100 mg total) by mouth 2 (two) times a day 8 Active atorvastatin (LIPITOR) 20 mg tablet Take 1 tablet (20 mg total) by mouth nightly Active levothyroxine (SYNTHROID) 150 mcg tablet Take 1 tablet (150 mcg total) by mouth daily with lunch Active colestipoL (COLESTID) 1 gram tablet Take 1 tablet (1 g total) by mouth 3 (three) times a day with meals Active hydrALAZINE (APRESOLINE) 50 mg tabletIndicatio ns:hypertension Take 1 tablet (50 mg total) by mouth 2 (two) times a day Active valsartan (DIOVAN) 80 mg tablet Take 1 tablet (80 mg total) by mouth every morning 0 Active amLODIPine (NORVASC) 10 mg tablet Take 1 tablet (10 mg total) by mouth every morning 0 Active PARoxetine (PAXIL) 10 mg tablet Take 1 tablet (10 mg total) by mouth every morning 1 Active empagliflozin (JARDIANCE) 25 mg tabletIndicatio ns:type 2 diabetes mellitus Take 1 tablet (25 mg total) by mouth every morning Active levETIRAcetam (KEPPRA) 500 mg tablet Take 1 tablet (500 mg total) by mouth 2 (two) times a day Active LORazepam (ATIVAN) 1 mg tablet Take 2 tablets (2 mg total) by mouth nightly Active triamcinolone (KENALOG) 0.1 % cream Apply 1 application topically 2 (two) times a day as needed for irritation Active acetaminophen (TYLENOL) 500 mg tablet Take 2 tablets (1,000 mg total) by mouth nightly Active aluminum hydroxide-magne sium carbonate (GAVISCON) 160-105 mg tablet,chewable Take 1 tablet by mouth 3 (three) times a day as needed (heartburn) Active loperamide (IMODIUM) 2 mg capsule Take 1 capsule (2 mg total) by mouth 4 (four) times a day as needed for diarrhea Active HYDROcodone-jose taminophen (NORCO) 7.5-325 mg per tablet Take by mouth every 8 (eight) hours as needed [address] (PROTONIX) 40 mg EC tablet Take 1 tablet (40 mg total) by mouth 2 (two) times a day 3 Active melatonin 10 mg tablet Take 1 tablet (10 mg total) by mouth nightly Active nortriptyline (PAMELOR) 25 mg capsule Take 1 capsule (25 mg total) by mouth nightly 90 capsule 3 4 Active Additional Information Patient not taking.Reported on 02/02/2024 fluconazole (DIFLUCAN) 150 mg tablet 4 Active amoxicillin (AMOXIL) 875 mg tablet Take 1 tablet (875 mg total) by mouth every 12 (twelve) hours 4 Active clotrimazole 1 % creamIndication s:Candidal skin infection Apply topically 2 (two) times a day For up to 2-4 weeks 60 g 1 4 Active Active Problems Problem Noted Date Diagnosed Date Iron deficiency anemia, unspecified 02/19/2025 Anemia, unspecified 02/14/2025 Mixed hyperlipidemia 09/07/2022 Carpal tunnel syndrome, bilateral 12/19/2019 Overview (12/19/2019): Added automatically from request for surgery [id number] History of traumatic subdural hematoma 0 Migraine without aura and wi thout status migrainosus, not intractable 07/14/2019 Hx of migraines 11/15/2018 Actinic keratosis 11/15/2018 Acute otitis externa of right ear 11/15/2018 Anxiety 11/15/2018 Morbid obesity 11/15/2018 Contact dermatitis and other eczema 11/15/2018 Other specified diseases of hair and hair follic les 11/15/2018 Psoriatic arthritis 11/15/2018 Chronic kidney disease, stage III (moderate) Dizziness and giddiness 11/15/2018 Pruritic disorder 11/15/2018 Heartburn 11/15/2018 History of colonic polyps 11/15/2018 Hypertensive chronic kidney disease with stage 1 through stage 4 chronic kidney disease, or unspecified chronic kidney disease 11/15/2018 Insomnia 11/15/2018 Moderate episode of recurrent major depressive d isorder 11/15/2018 Onychomycosis 11/15/2018 Opioid type dependence, continuous abuse 019 Other symptoms involving ner vous and musculoskeletal systems 11/15/2018 Palpitations 11/15/2018 Encounter for eye exam 11/15/2018 Spinal enthesopathy 11/15/2018 Chronic subdural hematoma 10/07/2018 Disturbance in sleep behavior 03/09/2017 Thrombocytosis 08/17/2016 Impacted cerumen, right ear 08/22/2015 Sebaceous cyst of skin of breast 04/12/2014 Overview (10/09/2016): Sebaceous cyst of breast Mass of breast 04/12/2014 Overview (10/09/2016): Breast lump Bilateral carpal tunnel syndrome 08/14/2013 Overview (10/07/2016): Carpal tunnel syndrome Communicating hydrocephalus 08/14/2013 Overview (10/08/2016): Hydrocephalus, communicating Migraine with aura 08/14/2013 Overview (10/09/2016): Migraine, classical Osteoarthritis 12/07/2012 Overview (10/08/2016): Osteoarthritis Fibrositis 12/07/2012 Overview (10/09/2016): Fibromyalgia Abnormal liver enzymes 12/07/2012 Overview (10/09/2016): Abnormal liver enzymes Hypercholesterolemia 11/03/2012 Overview (10/09/2016): Hypercholesterolemia Gastroesophageal reflux disease 11/03/2012 Overview (10/09/2016): GERD (gastroesophageal reflux disease) Type 2 diabetes mellitus 11/03/2012 Overview (10/09/2016): Type 2 diabetes mellitus Cobalamin deficiency 11/03/2012 Overview (10/09/2016): Vitamin B 12 deficiency Hypothyroidism 11/03/2012 Overview (10/09/2016): Hypothyroidism Primary hypertension 11/03/2012 Overview (10/09/2016): HTN (hypertension) Need for Streptococcus pneumoniae vaccination Acute bronchitis 10/11/2009 Cellulitis and abscess of trunk 04/17/2009 Systemic lupus erythematosus 04/17/2009 Allergic state 12/12/2008 Hyposmolality and/or hyponatremia 11/29/2008 Candidiasis of vulva and vagina 04/09/2008 Inflammatory polyarthropathy 03/12/2008 Other depressive disorder 01/26/2008 Thyrotoxicosis 01/26/2008 Abdominal pain, left lower quadrant 11/10/2006 Diverticulitis of colon 11/10/2006 Tachycardia 07/16/2006 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 Anxiety state 03/06/2005 Orbital cellulitis 12/30/2004 Candidiasis of mouth 04/19/2004 Glossitis 01/21/2004 CSF leak 10/25/2003 Acute pharyngitis 10/24/2003 Allergic rhinitis 07/20/2003 Viral infection in condition s classified elsewhere and of unspecified site 07/16/2003 Hematuria 03/22/2003 Abdominal pain 03/07/2003 Swelling of limb 01/04/2003 Oral aphthae 10/06/2002 Intestinal infections due to other organisms Generalized osteoarthrosis, unspecified site Neck pain 12/29/2001 Diarrhea 05/19/2001 Irritable colon 05/19/2001 Asymptomatic postmenopausal status 11/18/2000 Other malaise and fatigue 11/18/2000 Encounters Date Type Department Care Team Description 02/20/2025 Telephone [facility] [address] [place] [address] Bertha Carrillo RN from Last 3 Months Immunizations Immunization Administration Dates Next Due Influenza, Trivalent, IM (MDV) 04/05/2012 Influenza, Unspecified 04/20/2018 Moderna SARS-CoV-2 Monovalent Vaccination (12+ Y RS) 10/03/2020 Pneumococcal Polysaccharide PPV23 05/07/2010 Tdap 07/31/2011 Surgical History Surgery Date Site/Laterality Comments CHOLECYSTECTOMY SECTION x2 BREAST BIOPSY Left Breast biopsy APPENDECTOMY PLUNKET NURSE SHUNT INSERTION Right TOTAL ABDOMINAL HYSTERECTOMY W/ BILATERAL SALPINGOOPHORECTOMY BRAIN SURGERY 07/05/1968 - 07/04/1969 pseudo tumor SECTION Medical History Medical History Date Comments Hx Other Medical 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 Hypertension Hypothyroidism Hyperlipidemia Osteoarthritis Migraines Portal-systemic vascular shunt r ight Anemia Dermatitis Type 2 diabetes mellitus 2013 Diverticulitis of colon Gastric reflux History of transfusion Hx of assisted use of blood thinners Carpal tunnel syndrome, bilateral Meningitis 1989 Heart murmur Fibromyalgia Anxiety and depression SDH (subdural hematoma) (HCC) ch ronic with bilateral subdural hygromas Hydrocephalus communicating, S /P PLUNKET NURSE shunt Degenerative joint disease bilat eral knees GERD (gastroesophageal reflux disease) Stroke (HCC) Family History Medical History Relation Name Comments Suicidality Brother 6 suicide; Cause of : suicide Other Brother 7 Ischemic coroma ry disease; Coronary artery disease Brother 8 Renny nary Artery Bypass Graft; Suicidality Brother 9 suicide; Cause of : suicide Other Brother 10 bypass; Cause o f : bypass Diabetes Brother 11 Bernardo nazario Diabetes serenity litus; Hypertension Brother 12 Bernardo nazario Hyperten maikel; Other Child 2 Alive and well; one twin son recently treated for menigioma Arthritis Child 3 arthritis; Colon cancer Father Cancer, colon; Other Father fracture neck; Cause of : fracture neck/bypass; /broken neck; Cause of : broken neck Colon cancer Father's Brother Cancer, col on; Arthritis Mother Alisha nazario arthritis; Ca use of : arthritis Cerebral aneurysm Mother Alisha nazario Cerebral aneurysm; Cause of : Cerebral aneurysm Dementia Mother Alisha nazario Dementia; Hypertension Mother Alisha nazario Hypertension; Ovarian cancer Mother Alisha nazario Uterine cancer Mother Alisha nazario Cancer, jonathan rine; Cause of : Cancer, uterine/Cancer, uterine; Colon cancer Mother's Brother Cancer, col on; Uterine cancer Mother's Sister 3 Cancer, uterine; Cause of : Cancer, uterine Other Mother's Sister 4 Cancer - uterine/gallbladder/ c; Cause of : Cancer - uterine/gallbladder/ c Brain cancer Paternal Grandfather Cancer, brain; Cause of : Cancer, brain Cancer Neg Hx Gout Neg Hx Heart disease Neg Hx Relation Name Status Comments Brother 1 (Age 60) Brother 2 Alive Brother 3 Alive Brother 4 Brother 5 (Age 57) Brother 6 Brother 7 Brother 8 Brother 9 Brother 10 Brother 11 Bernardo nazario Brother 12 Bernardo nazario Child 1 Alive Child 2 Child 3 Father (Age 89) Father's Brother Mother Alisha nazario Mother's Brother Mother's Sister 1 Mother's Sister 2 Mother's Sister 3 Mother's Sister 4 Paternal Grandfather Social History Tobacco Use Types Packs/Day Years Used Date Smoking Tobacco: Former Cigarettes 0.3 3.4 0 02/02/1970 - 06/15/1973 Smokeless Tobacco: Never Tobacco Cessation:Counseling Given: Not Answered Comments:Ciggeretts mosr of them burnt up Alcohol Use Standard Drinks/Week Comments No 0 (1 standard drink = 0.6 oz pur e alcohol) AUDIT-C Answer Date Recorded Frequency of Alcohol Consumption Not on file 01/31/2024 Q2: How many drinks containi ng alcohol do you have on a typical day when you are drinking? Patient does not drink Frequency of Binge Drinking Not on file 01/03 Personal Safety Answer Date Recorded Getting School Help Needed Denies 07/29 Comments No Sex and Gender Information Value Date Recorded Sex Assigned at Not on file Legal Sex Female 1:11 PM GAS TESTER Gender Identity Not on file Sexual Orientation Not on file Obstetrics History Last Filed Vital Signs Vital Sign Reading Time Taken Comments Blood Pressure 133/72 02/02/2024 2:32 PM CDT Pulse 65 02/02/2024 2:32 PM CDT Temperature 36.4 C (97.6 F) 09/07/2022 3:13 PM GAS TESTER Respiratory Rate 16 01/31/2024 2:05 PM CDT Oxygen Saturation 97% 02/02/2024 2:32 PM CDT Inhaled Oxygen Concentration - - Weight 96.2 kg (212 lb) 01/31/2024 2:05 PM CDT Height 160.1 cm (5' 3.03) 01/31/2024 2:05 PM CD T Body Mass Index 37.52 01/31/2024 2:05 PM CDT Plan of Treatment Health Maintenance Due Date Last Done Comments Albumin Creatinine Ratio, Urine 1952 Colon Cancer Screening-Colonoscopy 1950 Depression Screening 1950 Dilated Eye Exam 1952 Foot Exam 1952 Hepatitis B Screening 02/02/1970 Zoster Vaccine (2 of 3) 06/27/2014 05/02/2014 Osteoporosis Screening-Bone Density Scan 11/30/2014 11/30/2012 Well Visit 65+ 02/02/2017 Hemoglobin A1C 10/18/2020 04/19/2020, 12/22/2019 Fall Risk Assessment 04/19/2021 04/19/2020 DTaP/Tdap/Td Vaccine (2 - Td or Tdap) 07/31/2021 07/31/2011 Lipid Panel 02/16/2023 02/16/2022, 05/0 12/2018, 06/12/2013 eGFR 09/08/2023 09/07/2022, 05/06, 04/19/2020, Additional history exists Breast Cancer Screening-Mammogram 05/21/2024 05/21/2023, 05/21/2023, 05/07/2022, Additional history exists Covid-19 Vaccine (2 - 2024-2 6 season) 2025 10/03/2020 Influenza Vaccine (#1) 2025 4, 03/01/2019, 04/20/2018, Additional history exists Hepatitis C Screening Completed 11/18/2012 Pneumococcal vaccine 65+ Completed 019, 03/05/2018, 03/11/2017, Additional history exists Procedures Procedure Name Priority Date/Time Associated Diagnosis Comments EGFR STAT 09/07/2022 4:01 PM GAS TESTER LIPID PANEL Routine 02/16/2022 HEMOGLOBIN A1C Routine 04/19/2020 4:25 PM CDT Pre-op evaluation SCREENING MAMMOGRAM BILATERAL [place] Schedule Routine, Read Routine (OP Routine) 04/17/2020 2:53 PM CDT Encounter for screening mammogram for malignant neoplasm of breast DEXA AXIAL SKELETON BONE DENSITY 1 OR MORE SITES Routine 11/30/2012 12:26 PM CDT SERUM HEPATITIS PANEL Routine 11/18/2012 1:36 PM CDT from Last 3 Months or Most Recently Relevant to Health Maintenance Results * eGFR (09/07/2022 4:01 PM GAS TESTER) eGFR 55 mL/min/1. 73 m2 [facility] Comment: Interpretive Data Reference Interval Normal >/= 90 mL/min/1.73m2 Mildly decreased* 60 - 89 mL/min/1.73m2 Mildly to moderately decreased 45 - 59 mL/min/1.73m2 Moderately to severely decreased 30 - 44 mL/min/1.73m2 Severely decreased 15 - 29 mL/min/1.73m2 Kidney Failure < 15 mL/min/1.73m2 *Relative to young adult level Estimated glomerular filtration rate is determined by the 2020 CKD-EPI equation recommended by the National Kidney Foundation (A Unifying Approach to GFR Estimation: Recommendations of the NKF-ASK Task Force on Reassessing the Inclusion of Race in Diagnosing Kidney Disease, JASN 2020). The CKD-EPI equation should not be used for patients with unstable renal function and has not been validated in children and those over 70. Current interpretive data was last reviewed 2021. Blood 09/07/2022 4:01 PM GAS TESTER 09/07/2022 4:11 PM GAS TESTER Result [facility] Halley Love MD LAB BLOOD ORDERABLES Final Result Performing Organization Address [facility] Co de Phone Number [facility] [address] Department of [employer] [place], [place] [id number] * Lipid panel (02/16/2022) SCRIBED Cholesterol, Total 176 l - h EXTERNAL LAB SCRIBED HDL 31 l - h EXTERNAL LAB SCRIBED LDL 66 l - h EXTERNAL LAB SCRIBED Triglycerides 496 l - h EXTERNAL LAB Blood Result [facility] Doc Bhandari MD LAB BLOOD ORDERABLES Rachel l Result Performing Organization Address [facility] de Phone Number EXTERNAL LAB * (ABNORMAL) Hemoglobin A1c (04/19/2020 4:25 PM CDT) Hgb A1C 8.5(H) 4.0 - 5.6 % [facility] Estimated Average Glucose 197 mg/dL [facility] Comment: The ADA recommends reporting an estimated Average Glucose (eAG) with all Hemoglobin A1c results using the equation derived from a study of 507 normal and diabetic adults. Minority populations were underrepresented and children were not included. (Diabetes Care 31:3798-2425, 2008). The eAG is not equivalent to a fasting glucose. Blood specimen (specimen) 04/19/2020 4:25 PM CDT 04/19/2020 4:25 PM CDT Result [facility] Taryn Lynn NP LAB BLOOD ORDERABLES Fin al Result Performing Organization Address [facility] Co de Phone Number [facility] [address] Department [place] [employer] [place] [address] * Screening Mammogram Bilateral [place] (04/17/2020 2:53 PM CDT) Anatomical Region Laterality Modality Breast Bilateral Mammography Narrative 04/18/2020 9:36 AM CDT Screening Mammogram Bilateral [place]: 04/17/20 Clinical: Encounter for screening mammogram for malignant neoplasm of breast. Prior Study Comparisons: Comparison was made to the prior available relevant studies at the time of interpretation. Findings: Bilateral No significant masses, malignant type calcifications, skin thickening, nipple retraction, or significant lymphadenopathy is noted in either breast. The CAD review showed no significant findings. The breasts have scattered areas of fibroglandular density. The patient will be notified of results by letter. Impression: BI-RADS ATLAS category (overall): 2 Benign There is no mammographic evidence of malignancy. Routine Screening Mammogram in 1 Yr is recommended for bilateral Overall Assessment: 2 - Benign us Self Screening Mammogram IMG MAMMO PROCEDURES Fi nal Result * Dexa Axial Skeleton Bone Density 1 or 2 Site (11/30/2012 12:26 PM CDT) Anatomical Region Laterality Modality Body N/A Radiographic Shanita ging 11/30/2012 12:2 6 PM CDT Narrative 11/30/2012 12:38 PM CDT Bone mineral density [facility] Clinical History: Postmenopausal female currently taking vitamin D. DXA BMD was done at [facility] on a [employer]imet[employer] CI. Precision testing at this site has resulted in a least significant change of: Lumbar spine 0.035 g/sq cm Hip 0.025 g/sq cm BMD L1-L4 is 1.165 g/sq cm corresponding to a T score of 1.1. BMD left femoral neck is 0.893 g/sq cm corresponding to a T score of 0.4. BMD total left hip is 1.103 g/sq cm corresponding to a T score of 1.3. COMPARISON: None. IMPRESSION: BMD near the young adult mean. Based on BMD alone, there is no increased risk of fragility fracture. If followup is to be done, for technical reasons, it should be performed on this same machine. Radiologist: ESTEFANIA CAMPBELL M.D. Attending: RUTH ESTRADA: RUTH ESTRADA Requesting Completed Time: 11/30/2012 12:26 AM Dictated Time: 11/30/2012 12:34 AM Transcribed Time: 11/30/2012 12:38 AM Signed by: ESTEFANIA CAMPBELL M.D. on 11/30/2012 12:38 AM Procedure Note Provider, MD Doc - 11/04/2016 Bone mineral density [facility] Clinical History: Postmenopausal female currently taking vitamin D. DXA BMD was done at [facility] on a [employer]imet[employer] CI. Precision testing at this site has resulted in a least significant change of: Lumbar spine 0.035 g/sq cm Hip 0.025 g/sq cm BMD L1-L4 is 1.165 g/sq cm corresponding to a T score of 1.1. BMD left femoral neck is 0.893 g/sq cm corresponding to a T score of 0.4. BMD total left hip is 1.103 g/sq cm corresponding to a T score of 1.3. COMPARISON: None. IMPRESSION: BMD near the young adult mean. Based on BMD alone, there is no increased risk of fragility fracture. If followup is to be done, for technical reasons, it should be performed on this same machine. Radiologist: ESTEFANIA CAMPBELL M.D. Attending: RUTH ESTRADA Requesting: RUTH ESTRADA Requesting Completed Time: 11/30/2012 12:26 AM Dictated Time: 11/30/2012 12:34 AM Transcribed Time: 11/30/2012 12:38 AM Signed by: ESTEFANIA CAMPBELL M.D. on 11/30/2012 12:38 AM us Historical Provider MD TAVERA DXA PROCEDURES Final Result * Serum Hepatitis panel (11/18/2012 1:36 PM CDT) HBV surface ag Non-Reacti ve Non-Reacti ve HISTORICAL RESULTS HCV ab Non-Reacti ve Non-Reacti ve HISTORICAL RESULTS HBV core ab, IgM Non-Reacti ve Non-Reacti ve HISTORICAL RESULTS HAV ab, IgM Non-Reacti ve Non-Reacti ve HISTORICAL RESULTS Serum 11/18/2012 1:36 PM CDT us Ruth Estrada MD LAB BLOOD ORDERABLES Rachel herrmann Result HISTORICAL RESULTS from Last 3 Months or Most Recently Relevant to Health Maintenance Insurance MEDICARE [employer] MEDICARE [employer] MEDICARE Care Teams Propulsion Generator Repairer Relationship Specialty Start Date End Date Truong Higgins MD [address] [facility] [address] [place] [address] PCP - General 10/02/16
--- NOTE | 2025-04-05 08:01 | WPDCNINT ---
Assessment and Plan Assessment and plan (1) ST elevation (STEMI) myocardial infarction: Qualifiers: Involved coronary artery: unspecified coronary artery Qualified Code(s): I21.3 - ST elevation (STEMI) myocardial infarction of unspecified site Code(s): I21.3 - ST elevation (STEMI) myocardial infarction of unspecified site Status: Acute Assessment and Plan: Status post PCI and drug-eluting stent placement in RCA Continue aspirin Plavix statin and beta-ally Hold losartan until renal function stabilizes Cautious IV fluids Check echocardiogram Will need intervention for LAD down the course (2) Black stool: Code(s): K92.1 - Melena Status: Acute Assessment and Plan: Patient reports history of black stools or month ago she also takes Pepto-Bismol and other medications. She has chronic diarrhea. Continue PPI Consult GI Check stool for occult blood Hemoglobin 10.9. Will monitor (3) Hypothyroidism: Code(s): E03.9 - Hypothyroidism, unspecified Status: Acute Assessment and Plan: Continue levothyroxine, check TSH (4) Migraine: Code(s): G43.909 - Migraine, unspecified, not intractable, without status migrainosus Status: Acute Assessment and Plan: Continue Keppra (5) Pulmonary nodule: Code(s): R91.1 - Solitary pulmonary nodule Status: Acute Assessment and Plan: Consult pulmonary (6) Hyperlipidemia: Code(s): E78.5 - Hyperlipidemia, unspecified Status: Acute Assessment and Plan: Patient has been started on statin (7) Essential hypertension: Code(s): I10 - Essential (primary) hypertension Status: Acute Assessment and Plan: Patient was hypotensive when came in but blood pressures improved. I will restart metoprolol at a lower dose (8) Diabetes mellitus: Code(s): E11.9 - Type 2 diabetes mellitus without complications Status: Acute Assessment and Plan: Add sliding scale. Check TSH (9) Diverticulitis: Code(s): K57.92 - Diverticulitis of intestine, part unspecified, without perforation or abscess without bleeding Status: Acute Assessment and Plan: History of diverticulosis with findings of colitis in sigmoid colon. Mild tenderness palpation IV Zosyn Check cultures and stool for C diff GI consult (10) Chronic diarrhea: Code(s): K52.9 - Noninfective gastroenteritis and colitis, unspecified Status: Acute Assessment and Plan: GI consult (11) Elevated serum creatinine: Code(s): R79.89 - Other specified abnormal findings of blood chemistry Status: Acute Assessment and Plan: Patient presented with creatinine of 1.28. Baseline unknown although patient could have CKD as she has diabetes hypertension and other risk factors. She also has chronic diarrhea and may have hypovolemia. She will be given cautious amount of IV fluids. Creatinine is improving to 1.01. Monitor urine output electrolytes and creatinine Check echocardiogram Check CK level, urine electrolytes CT scan negative for any obstruction or stones Elizabeth is in place and will check UA and micro Plan DVT prophylaxis -SCD Stress ulcer prophylaxis -PPI Nutrition -diet ordered Code Status - Full Code Total Critical Care Time - 30 minutes Due to a high probability of clinically significant, life threatening deterioration, the patient required my highest level of preparedness to intervene emergently and I personally spent this critical care time directly and personally managing the patient. This critical care time included obtaining a history; examining the patient; pulse oximetry; ordering and review of studies; arranging urgent treatment with development of a management plan; evaluation of patient's response to treatment; frequent reassessment; and discussions with other providers. It was exclusive of separately billable procedures and treating other patients and teaching time. Please see Assessment and Plan section and the rest of the note for further information on patient assessment and treatment Commercial Correspondent Consult Note Consult date: 04/05/25 Reason for consult: STEMI HPI: Kym Jaramillo is a 75 year old female with past medical history of diabetes, hypertension, hyperlipidemia, migraine, depression, anxiety, chronic diarrhea, diverticulosis who presented to ER yesterday with chief complaint off syncope.. It was reported to ER the patient had syncope that was witnessed by her son but patient herself told me that she was at her son's house and was not feeling well and was laying down and could not get up because she was having GI upset, dizziness, nausea but no vomiting. She states she had achy pain in her chest which did not radiate anywhere else. She also had some pain and upper epigastric area which is chronic for her. She was having loose bowel movements which are also chronic for her. She does state that for last 1 month she has been having black stools. She states that she has had chronic diarrhea for years and has been evaluated in the past. Her last colonoscopy was 10 years ago. She has 8 bowel movements which are watery to liquid daily. She takes Imodium and Pepto-Bismol on and off. All other systems were reviewed and were negative. Workup in the ER showed hemoglobin 10.1 will WBC 10.1 normal platelet count, coags were unremarkable, creatinine 1.28 CO2 14 chloride 108 glucose 159, 1st troponin was negative triglyceride 244. EKG suggested inferior STEMI. Patient was taken to cardiac catheterization lab. She underwent PCI and stent placement in RCA. She also had 70% blockage in LAD. Postprocedure patient was admitted to ICU for further evaluation management. This morning she states she feels better. She denies any pain. She is eating a breakfast but does not feel hungry. She states most of her symptoms have resolved. Review of Systems Review of Systems: All systems reviewed & are unremarkable except as noted in HPI and below (HPI) [facility] Past Medical History Medical History (Updated 04/05/25 @ 08:19 by Kapil Andre MD) Pseudotumor cerebri Hypothyroidism Depression Anxiety Pulmonary nodule Fibromyalgia Migraine Hyperlipidemia Essential hypertension Diabetes mellitus Diverticulosis Chronic diarrhea Surgical History Surgical History (Updated 04/05/25 @ 08:06 by Kapil Andre MD) Status post ventriculoatrial shunt placement Family History Family History (Updated 04/04/25 @ 22:40 by Rashida Gagnon RN) Mother Cancer, uterine Father Cardiac complications Cancer, colon Bypass graft stenosis Social History Social History Smoking packs per day: 0.5 Smoking cigarettes per day: 10.0 Years smoked: 15 Smoking pack-years: 7.50 Smoking status: Former smoker Tobacco type: cigarettes Alcohol intake: never Substance use: never Lack of Transportation: No Lack of Food: Never True Current Housing: I Have Housing Concerned About Future Housing: No Difficulty Paying Gas/Electric Bills: No Difficulty Paying for Meds: No Currently Unemployed: No Education: High School Diploma/GED Difficulty w/ Childcare or Family Care: No Spiritual care concerns: No Meds Home Medications and Allergies Home Medications ?Medication ?Instructions ?Recorded ?Confirmed ?Type acetaminophen 500 mg capsule 1,000 mg PO TID PRN fever or pain 04/04/25 04/04/25 History amlodipine 10 mg tablet 10 mg PO DAILY 04/04/25 04/04/25 History aspirin 81 mg tablet 81 mg PO DAILY 04/04/25 04/04/25 History atorvastatin 20 mg tablet 20 mg PO HS 04/04/25 04/04/25 History cholecalciferol (vitamin D3) 25 25 mcg PO DAILY 04/04/25 04/04/25 History mcg (1,000 unit) capsule colestipol 1 gram tablet 1 g PO DAILY 04/04/25 04/04/25 History diclofenac sodium 75 mg 75 mg PO BID 04/04/25 04/04/25 History tablet,delayed release hydralazine 50 mg tablet 50 mg PO BID 04/04/25 04/04/25 History hydrocodone 7.5 mg-acetaminophen 1 tablet PO Q6H PRN pain 04/04/25 04/04/25 History 325 mg tablet levetiracetam 500 mg tablet 500 mg PO BID 04/04/25 04/04/25 History levothyroxine 150 mcg tablet 150 mcg PO DAILY 04/04/25 04/04/25 History lorazepam 1 mg tablet 2 mg PO HS PRN anxiety 04/04/25 04/04/25 History melatonin 10 mg capsule 10 mg PO HS 04/04/25 04/04/25 History metoprolol tartrate 100 mg tablet 100 mg PO BID 04/04/25 04/04/25 History pantoprazole 40 mg tablet,delayed 40 mg PO BID 04/04/25 04/04/25 History release paroxetine HCl 10 mg tablet 10 mg PO DAILY 04/04/25 04/04/25 History valsartan 80 mg tablet 80 mg PO DAILY 04/04/25 04/04/25 History Allergies Allergy/AdvReac Type Severity Reaction Status Date / Time iodine Allergy Intermediate Itching Verified 04/04/25 22:35 Sulfa (Sulfonamide Allergy Unknown Unknown Verified 04/04/25 22:35 Antibiotics) Vital Signs Vital Signs - 24 hr 04/04/25 20:00 04/04/25 20:17 04/04/25 20:17 Temperature Pulse Rate 67 62 Respiratory Rate 20 Blood Pressure 97/59 L Pulse Oximetry 97 97 Oxygen Delivery Room Air Room Air 04/04/25 20:17 04/04/25 21:49 04/04/25 22:04 Temperature 36.3 C L Pulse Rate 72 80 82 Respiratory Rate 16 13 15 Blood Pressure 97/59 L Pulse Oximetry 95 91 92 Oxygen Delivery 04/04/25 22:19 04/04/25 22:34 04/04/25 23:04 Temperature Pulse Rate 80 79 80 Respiratory Rate 15 13 14 Blood Pressure 120/49 L 121/70 129/76 Pulse Oximetry 98 98 97 Oxygen Delivery 04/04/25 23:34 04/05/25 00:00 04/05/25 00:00 Temperature 36.8 C Pulse Rate 84 86 Respiratory Rate 16 16 Blood Pressure 119/68 129/65 Pulse Oximetry 96 94 Oxygen Delivery Room Air 04/05/25 00:00 04/05/25 00:34 04/05/25 01:34 Temperature Pulse Rate 84 87 93 Respiratory Rate 17 16 Blood Pressure 131/62 117/60 Pulse Oximetry 92 92 Oxygen Delivery 04/05/25 02:00 04/05/25 02:00 04/05/25 02:34 Temperature Pulse Rate 95 95 100 Respiratory Rate 18 19 Blood Pressure 104/55 L 111/65 Pulse Oximetry 92 90 Oxygen Delivery 04/05/25 03:34 04/05/25 04:00 04/05/25 04:00 Temperature Pulse Rate 105 H 106 H Respiratory Rate 15 Blood Pressure 138/97 H Pulse Oximetry 96 Oxygen Delivery Room Air 04/05/25 04:00 04/05/25 06:00 04/05/25 06:00 Temperature 36.4 C L Pulse Rate 103 H 65 65 Respiratory Rate 20 18 Blood Pressure 122/62 108/45 L Pulse Oximetry 96 93 Oxygen Delivery 04/05/25 07:28 Temperature 36.4 C L Pulse Rate 69 Respiratory Rate 16 Blood Pressure 112/40 L Pulse Oximetry 95 Oxygen Delivery Exam Narrative: General: Pt is alert awake and in NAD Lungs/Chest: Trachea central Clear BS B/L, No crackles or wheezing. Cardiac: RRR. Normal S1 S2. No murmurs Circulation: Pedal pulses are intact and symmetrical. Abdomen: Normal bowel sounds.. Soft. Mild tenderness in right lower quadrant Extremities: No clubbing, cyanosis or edema. Warm right catheterization site shows no swelling or hematoma : Elizabeth in place Neurologic: Follows commands. Moves all 4 extremities PERRL Skin: No Rash Results Labs 04/05/25 04:30 04/05/25 04:30 Labs: Impressions Head CT 04/04/25 20:47 IMPRESSION: 1. Age-related changes including moderate diffuse volume loss and mild scattered white matter hypoattenuation consistent with chronic small vessel ischemic disease. No acute intracranial process. 2. Right ventricular shunt catheter with tip in the anterior horn of the right lateral ventricle. Chest X-Ray 04/04/25 20:50 IMPRESSION: 1. No acute cardiopulmonary disease. Chest/Abdomen/Pelvis CTA 04/04/25 20:56 IMPRESSION: 1. Normal caliber thoracic and abdominal aorta with no dissection. 2. Cluster of a few 4-6 mm pulmonary nodules at the posterior lingula which most likely infectious/inflammatory in etiology. If the patient is low risk for lung cancer, no follow-up is needed. If the patient is high risk (i.e., history of smoking or asbestos or significant radiation exposure), optional follow-up chest CT could be considered at 12 months. 3. Edematous-appearing wall thickening along the sigmoid colon suspicious for colitis which could be infectious or inflammatory in etiology. There are however numerous diverticula along the sigmoid colon and this could represent scarring related to chronic diverticulitis. 4. Finally physiologic or reactive free fluid in the pelvis. Short CBC 04/04/25 04/05/25 Range/Units 20:06 04:30 WBC 10.1 H 7.0 (4.5-10.0) K/mm3 Hgb 10.1 L 10.9 L (12.0-15.0) g/dL Hct 32.8 L 35.2 L (37.0-47.0) % Plt Count 357 321 (150-375) k/mm3 BMP 04/04/25 04/04/25 04/04/25 20:06 20:06 20:06 Sodium Cancelled 134 L Potassium Cancelled 3.8 Chloride Cancelled Carbon Dioxide BUN Creatinine Glucose Calcium 04/04/25 04/04/25 04/04/25 20:06 20:06 20:06 Sodium Potassium Chloride 108 H Carbon Dioxide Cancelled 14 L BUN Cancelled 19 H Creatinine Cancelled Glucose Calcium 04/04/25 04/04/25 04/04/25 20:06 20:06 20:06 Sodium Potassium Chloride Carbon Dioxide BUN Creatinine 1.28 H Glucose Cancelled 159 H Calcium Cancelled 8.3 L 04/05/25 04:30 Sodium 134 L Potassium 4.0 Chloride 106 Carbon Dioxide 15 L BUN 17 Creatinine 1.01 H Glucose 247 H Calcium 8.7 Cardiac Enzymes 04/04/25 04/05/25 04/05/25 Range/Units 20:06 01:20 04:30 Troponin I < 0.012 23.400 H* D 32.700 H* D (0.000-0.034) ng/mL Liver Function 04/04/25 04/04/25 04/04/25 Range/Units 20:06 20:06 20:06 Total Bilirubin Cancelled 0.3 AST Cancelled 12 L ALT Cancelled Alkaline Phosphatase Albumin 04/04/25 04/04/25 04/04/25 Range/Units 20:06 20:06 20:06 Total Bilirubin AST ALT 12 Alkaline Phosphatase Cancelled 74 Albumin Cancelled 3.4 L Quality VTE Prophylaxis VTE prophylaxis: mechanical ordered Hospitalist MIPS Advance Care Plan I have confirmed that the patient's Advanced Care Plan is present, code status is documented, or surrogate decision maker is listed in patient medical record.: Yes Medication Reconciliation I have utilized all available resources to obtain, update and review the patients current medications (includes all prescriptions, OTC, herbals, cannabis, and nutritional supplements).: Yes
[2025-04-05] MEDS: PANTOPRAZOLE 40 MG TABLET PO ×2 (08:09→20:37)
[2025-04-05] MEDS: ASPIRIN 81 MG ENTERIC TABLET PO (08:10)
[2025-04-05] MEDS: CLOPIDOGREL BISULFATE 75 MG TABLET PO (08:10)
[2025-04-05] MEDS: ROSUVASTATIN 20 MG TABLET PO (08:10)
[2025-04-05] MEDS: INSULIN ASPART (*BKC) 100 UNITS/ML SUB-Q ×2 (08:10→12:14)
[2025-04-05] MEDS: METOPROLOL TARTRATE 12.5 MG TABLET PO ×2 (08:14→20:36)
[2025-04-05 08:23] LABS: NT Pro B Type Natriuretic Pept 5060 pg/mL (19.9-100)
[2025-04-05 08:24] LABS: Hemoglobin A1C 7.1 % (<5.7)
[2025-04-05 08:33] LABS: Creatine Kinase 1020 U/L (30-135)
--- NOTE | 2025-04-05 08:38 | WPDGICN ---
Assessment and Plan Assessment and plan (1) Chronic diarrhea: Code(s): K52.9 - Noninfective gastroenteritis and colitis, unspecified Status: Acute (2) Colitis: Code(s): K52.9 - Noninfective gastroenteritis and colitis, unspecified Status: Acute (3) LLQ pain: Code(s): R10.32 - Left lower quadrant pain Status: Acute (4) GERD (gastroesophageal reflux disease): Qualifiers: Esophagitis presence: esophagitis presence not specified Qualified Code(s): K21.9 - Gastro-esophageal reflux disease without esophagitis Code(s): K21.9 - Gastro-esophageal reflux disease without esophagitis Status: Acute (5) Nausea: Code(s): R11.0 - Nausea Status: Acute (6) Dysphagia: Qualifiers: Dysphagia type: esophageal phase Qualified Code(s): R13.19 - Other dysphagia Code(s): R13.10 - Dysphagia, unspecified Status: Acute (7) Melena: Code(s): K92.1 - Melena Status: Acute (8) Appetite loss: Code(s): R63.0 - Anorexia Status: Acute (9) Diverticulitis: Code(s): K57.92 - Diverticulitis of intestine, part unspecified, without perforation or abscess without bleeding Status: Acute Plan 1. Chronic diarrhea/left lower quadrant pain/colitis/diverticulitis: S/P cholecystectomy. Last colonoscopy attempted around 5 years ago and per patient was on completed due to poor prep. She states that her last completed colonoscopy may have been 1-2 years prior to that but this could not be confirmed. CTA this admission showed edematous appearing wall thickening along the sigmoid colon suspicious for colitis which could be infectious/inflammatory. There was also numerous diverticula along the sigmoid colon and this could represent scarring secondary to chronic diverticulitis. Patient has had multiple abdominal surgery and possible surgical adhesions noted in the left lower quadrant versus herniation. She is currently taking 8 Imodium daily to control bowel movements along with colestipol 1-2 times daily. She noticed minimal improvement on colestipol. While using Imodium she is still having 5-6 bowel movements daily that are typically postprandial and urgent with occasional fecal incontinence. Occasionally she will have formed stools that she states are ?small black balls?. She does admit to drinking at least a 2 L of diet soda daily which may be contributing to her diarrhea. DDX: Motility disorder versus malabsorption versus IBD or microscopic colitis less likely C diff given the chronic nature of symptoms. Advised patient decrease consumption of diet soda and products that contain artificial sweeteners Stool studies ordered to rule out infectious etiology, inflammatory process, EPI. OVA and parasites ordered at patient's request Recommended outpatient colonoscopy when she is more stable clinically as she recently had a STEMI and cardiac catheterization with drug-eluting stent placement and newly prescribed Plavix in combination with aspirin Patient on Zosyn, continue Imodium as needed after stool studies rule out infectious etiology 2. Nausea/GERD/appetite loss/early satiety/melena: Per patient last EGD performed 5-6 years ago which could not be confirmed no results were available. Patient complains of daily nausea without vomiting, reflux, appetite loss, early satiety and unmeasured weight loss. She states she has been using Pepto-Bismol regularly along with other OTC antacids. She was recently started on pantoprazole 40 mg b.i.d. with no significant notice change in symptoms. She admits to intermittent dysphagia with solid foods but denies any difficulty with liquids or pills. She admits to occasional black stools but it is somewhat difficult to determine if this is secondary to a true upper GI bleed or her frequent use of Pepto-Bismol and aspirin. Patient to follow-up in the GI office following discharge at which time we can discuss possible need for EGD and dilation Continue pantoprazole 40 mg b.i.d. Recommended decrease in soda consumption Thank you very much for allowing me to share in the care of this very nice patient. This report may have been done utilizing a voice recognition system. Attempts have been made to correct errors. However, there may be uncorrected grammatical, spelling, and recognition errors present. GI Consult Note Consult date/time: 04/05/25 08:38 Reason for consult: Chronic diarrhea HPI: Kym Jaramillo is a 75 year old female with PMSH hypothyroidism, migraines, HTN and diabetes. She presented to the ER 04/04/2025 after a syncopal episode and chest pain. Patient was admitted for a STEMI. GI has been consulted for chronic diarrhea. Patient S/P cardiac catheterization with drug-eluting stent placed in RCA performed 04/04 and she was started on Plavix in combination with aspirin 81 mg daily. Patient admits to longstanding history of diarrhea for more than 10 years. She currently admits to left lower quadrant pain that is intermittent and sharp in nature. Her pain has no correlation with food intake or bowel movements. She complains of daily episodes of nausea without vomiting. She has been taking Pepto-Bismol and antacids regularly with only minimal improvement. She admits to more frequent and problematic reflux and a previously been taking kypd-ann-aelheoa antacids but was then started on Protonix 40 mg b.i.d. and colestipol 1 g 1-2 times daily with no significant improvement of reflux or diarrhea. Admits to appetite loss, early satiety and unmeasured weight loss. Patient states she is having 5-6 bowel movements a day that are typically postprandial and urgent with occasional fecal incontinence. She admits to drinking around a 2 L of diet soda daily which may be contributing to her diarrhea. She states that she has been taking 8 Imodium daily and sometime she has formed bowel moved that are ?small black balls?. She admits to dark colored stools but has also been taking Pepto-Bismol regularly. She denies bloating, odynophagia, or regurgitation, constipation, or hematochezia. Prior to admission patient was on diclofenac and aspirin 81 mg. She is a nondrinker nonsmoker and denies marijuana use. Family history includes father diagnosed with colon cancer in his mid 50s. ENDOSCOPY HISTORY: EGD: Per patient last EGD was around 5-6 years ago but this cannot be confirmed COLONOSCOPY: Patient states that she had a colonoscopy around 5 years ago but due to poor prep the scope was not completed. She states that her last completed colonoscopy was maybe 1 or 2 years before that. LABS AND STOOL STUDIES: Labs 04/05/2025: Sodium 134, potassium 4.0, BUN 17, creatinine 1.01, GFR 54, calcium 8.7 WBC 7, Hgb 11, Hct 35, MCV 90, platelets 321 CK 1020, BNP 5060 Labs 04/04/2025: Sodium 134, potassium 3.8, BUN 19, creatinine 1.28, GFR 41, calcium 8.3 WBC 10, Hgb 10, Hct 33, MCV 91, platelets 357, INR 1.2 Total bilirubin 0.3, AST 12, ALT 12, Alkaline Phos 74, albumin 3.4 Triglycerides 244 IMAGING: CTA chest/abd/pelvis w/contrast : IMPRESSION: 1. Normal caliber thoracic and abdominal aorta with no dissection. 2. Cluster of a few 4-6 mm pulmonary nodules at the posterior lingula which most likely infectious/inflammatory in etiology. If the patient is low risk for lung cancer, no follow-up is needed. If the patient is high risk (i.e., history of smoking or asbestos or significant radiation exposure), optional follow-up chest CT could be considered at 12 months. 3. Edematous-appearing wall thickening along the sigmoid colon suspicious for colitis which could be infectious or inflammatory in etiology. There are however numerous diverticula along the sigmoid colon and this could represent scarring related to chronic diverticulitis. 4. Finally physiologic or reactive free fluid in the pelvis. Review of Systems Constitutional: Constitutional: Reports as per HPI and Reports fatigue ENT: Reports as per HPI and Reports dysphagia Cardiovascular: Cardiovascular: Reports as per HPI, Denies chest pain and Reports leg edema (mild non pitting) Respiratory: Respiratory: Denies cough and Denies wheezing Gastrointestinal: Gastrointestinal: Reports as per HPI Musculoskeletal: Musculoskeletal: Reports as per HPI Integumentary/Breasts: Skin/Breast: Reports as per HPI Psychiatric: Psychiatric: Reports as per HPI Endocrine: Endocrine: Reports no additional endocrine complaints Hematologic/Lymphatic: Hematologic/Lymphatic: Reports no additional hematologic/lymphatic complaints [facility] Past Medical History Medical History (Updated 04/05/25 @ 12:58 by Evelyn Vogel APRN) Pseudotumor cerebri Hypothyroidism Depression Anxiety Pulmonary nodule Fibromyalgia Migraine Hyperlipidemia Essential hypertension Diabetes mellitus Diverticulosis Chronic diarrhea Surgical History Surgical History (Updated 04/05/25 @ 08:06 by Kapil Andre MD) Status post ventriculoatrial shunt placement Family History Family History (Updated 04/04/25 @ 22:40 by Rashida Gagnon RN) Mother Cancer, uterine Father Cardiac complications Cancer, colon Bypass graft stenosis Social History Social History Smoking packs per day: 0.5 Smoking cigarettes per day: 10.0 Years smoked: 15 Smoking pack-years: 7.50 Smoking status: Former smoker Tobacco type: cigarettes Alcohol intake: never Substance use: never Lack of Transportation: No Lack of Food: Never True Current Housing: I Have Housing Concerned About Future Housing: No Difficulty Paying Gas/Electric Bills: No Difficulty Paying for Meds: No Currently Unemployed: No Education: High School Diploma/GED Difficulty w/ Childcare or Family Care: No Spiritual care concerns: No Meds Home Medications and Allergies Home Medications ?Medication ?Instructions ?Recorded ?Confirmed ?Type acetaminophen 500 mg capsule 1,000 mg PO TID PRN fever or pain 04/04/25 04/04/25 History amlodipine 10 mg tablet 10 mg PO DAILY 04/04/25 04/04/25 History aspirin 81 mg tablet 81 mg PO DAILY 04/04/25 04/04/25 History atorvastatin 20 mg tablet 20 mg PO HS 04/04/25 04/04/25 History cholecalciferol (vitamin D3) 25 25 mcg PO DAILY 04/04/25 04/04/25 History mcg (1,000 unit) capsule colestipol 1 gram tablet 1 g PO DAILY 04/04/25 04/04/25 History diclofenac sodium 75 mg 75 mg PO BID 04/04/25 04/04/25 History tablet,delayed release hydralazine 50 mg tablet 50 mg PO BID 04/04/25 04/04/25 History hydrocodone 7.5 mg-acetaminophen 1 tablet PO Q6H PRN pain 04/04/25 04/04/25 History 325 mg tablet levetiracetam 500 mg tablet 500 mg PO BID 04/04/25 04/04/25 History levothyroxine 150 mcg tablet 150 mcg PO DAILY 04/04/25 04/04/25 History lorazepam 1 mg tablet 2 mg PO HS PRN anxiety 04/04/25 04/04/25 History melatonin 10 mg capsule 10 mg PO HS 04/04/25 04/04/25 History metoprolol tartrate 100 mg tablet 100 mg PO BID 04/04/25 04/04/25 History pantoprazole 40 mg tablet,delayed 40 mg PO BID 04/04/25 04/04/25 History release paroxetine HCl 10 mg tablet 10 mg PO DAILY 04/04/25 04/04/25 History valsartan 80 mg tablet 80 mg PO DAILY 04/04/25 04/04/25 History clopidogrel 75 mg tablet 75 mg PO QAM #90 tabs 04/05/25 Rx Allergies Allergy/AdvReac Type Severity Reaction Status Date / Time iodine Allergy Intermediate Itching Verified 04/04/25 22:35 Sulfa (Sulfonamide Allergy Unknown Unknown Verified 04/04/25 22:35 Antibiotics) Vital Signs Vital Signs - 24 hr 04/04/25 20:00 04/04/25 20:17 04/04/25 20:17 Temperature Pulse Rate 67 62 Respiratory Rate 20 Blood Pressure 97/59 L Pulse Oximetry 97 97 Oxygen Delivery Room Air Room Air 04/04/25 20:17 04/04/25 21:49 04/04/25 22:04 Temperature 97.4 F L Pulse Rate 72 80 82 Respiratory Rate 16 13 15 Blood Pressure 97/59 L Pulse Oximetry 95 91 92 Oxygen Delivery 04/04/25 22:19 04/04/25 22:34 04/04/25 23:04 Temperature Pulse Rate 80 79 80 Respiratory Rate 15 13 14 Blood Pressure 120/49 L 121/70 129/76 Pulse Oximetry 98 98 97 Oxygen Delivery 04/04/25 23:34 04/05/25 00:00 04/05/25 00:00 Temperature 98.2 F Pulse Rate 84 86 Respiratory Rate 16 16 Blood Pressure 119/68 129/65 Pulse Oximetry 96 94 Oxygen Delivery Room Air 04/05/25 00:00 04/05/25 00:34 04/05/25 01:34 Temperature Pulse Rate 84 87 93 Respiratory Rate 17 16 Blood Pressure 131/62 117/60 Pulse Oximetry 92 92 Oxygen Delivery 04/05/25 02:00 04/05/25 02:00 04/05/25 02:34 Temperature Pulse Rate 95 95 100 Respiratory Rate 18 19 Blood Pressure 104/55 L 111/65 Pulse Oximetry 92 90 Oxygen Delivery 04/05/25 03:34 04/05/25 04:00 04/05/25 04:00 Temperature Pulse Rate 105 H 106 H Respiratory Rate 15 Blood Pressure 138/97 H Pulse Oximetry 96 Oxygen Delivery Room Air 04/05/25 04:00 04/05/25 06:00 04/05/25 06:00 Temperature 97.5 F L Pulse Rate 103 H 65 65 Respiratory Rate 20 18 Blood Pressure 122/62 108/45 L Pulse Oximetry 96 93 Oxygen Delivery 04/05/25 07:28 04/05/25 08:14 Temperature 97.5 F L Pulse Rate 69 71 Respiratory Rate 16 Blood Pressure 112/40 L Pulse Oximetry 95 Oxygen Delivery Exam Const: General: cooperative, healthy appearing, comfortable, no acute distress, well developed and overweight Orientation/consciousness: oriented to person, oriented to place, oriented to time and patient oriented x3 HENMT: Head: normal to inspection, normocephalic and atraumatic Mouth: Yes Normal oral and palatal mucosa present and Yes moist mucous membranes Eyes: General: appearance normal, both eyes and all related structures Conjunctivae: conjunctivae normal Sclera: sclerae normal Pupils: Equal, round and reactive pupils present Neck: Neck: normal visual inspection Chest: Chest palpation & inspection: normal inspection of the chest Resp: Effort & Inspection: normal respiratory effort and able to speak in complete sentences Auscultation: clear to auscultation bilaterally Cardio: Jugular venous distension: no JVD Rate: regular rate Rhythm: regular rhythm Heart sounds: S1 normal heart sound present and S2 normal heart sound present GI: Inspection: normal to inspection GI Palp: Yes Soft to palpation and Yes No hepatosplenomegaly present Auscultation: normal bowel sounds Rectal Exam: deferred Skin: General skin exam: normal color and no rashes or lesions noted Neuro: General: oriented to person, oriented to place, oriented to time and patient oriented x3 Cranial nerves: Yes Equal, round and reactive pupils present Speech: normal speech Extrem: General: normal to inspection and no clubbing, cyanosis or edema Psych: Appearance: grossly normal and well kempt Affect: normal affect Results Labs 04/05/25 04:30 04/05/25 04:30 Labs: Short CBC 04/04/25 04/05/25 Range/Units 20:06 04:30 WBC 10.1 H 7.0 (4.5-10.0) K/mm3 Hgb 10.1 L 10.9 L (12.0-15.0) g/dL Hct 32.8 L 35.2 L (37.0-47.0) % Plt Count 357 321 (150-375) k/mm3 BMP 04/04/25 04/04/25 04/04/25 20:06 20:06 20:06 Sodium Cancelled 134 L Potassium Cancelled 3.8 Chloride Cancelled Carbon Dioxide BUN Creatinine Glucose Calcium 04/04/25 04/04/25 04/04/25 20:06 20:06 20:06 Sodium Potassium Chloride 108 H Carbon Dioxide Cancelled 14 L BUN Cancelled 19 H Creatinine Cancelled Glucose Calcium 04/04/25 04/04/25 04/04/25 20:06 20:06 20:06 Sodium Potassium Chloride Carbon Dioxide BUN Creatinine 1.28 H Glucose Cancelled 159 H Calcium Cancelled 8.3 L 04/05/25 04:30 Sodium 134 L Potassium 4.0 Chloride 106 Carbon Dioxide 15 L BUN 17 Creatinine 1.01 H Glucose 247 H Calcium 8.7 Cardiac Enzymes 04/04/25 04/05/25 04/05/25 Range/Units 20:06 01:20 04:30 Total Creatine Kinase 1020 H (30-135) U/L Troponin I < 0.012 23.400 H* D 32.700 H* D (0.000-0.034) ng/mL Liver Function 04/04/25 04/04/25 04/04/25 Range/Units 20:06 20:06 20:06 Total Bilirubin Cancelled 0.3 AST Cancelled 12 L ALT Cancelled Alkaline Phosphatase Albumin 04/04/25 04/04/25 04/04/25 Range/Units 20:06 20:06 20:06 Total Bilirubin AST ALT 12 Alkaline Phosphatase Cancelled 74 Albumin Cancelled 3.4 L
[2025-04-05] MEDS: PIPERACILLIN/TAZOBACTAM SOD 3.375 GM in SODIUM CHLORIDE 0.9% IV 50 ML 100 ML IVPB ×3 (09:21→20:36)
[2025-04-05 09:39] LABS: MRSA (PCR) NOT DETECTED (NOT DETECTE)
--- NOTE | 2025-04-05 10:03 | PM.PNCARD ---
Progress Note: A&P Assessment and Plan (1) ST elevation (STEMI) myocardial infarction: Qualifiers: Involved coronary artery: unspecified coronary artery Qualified Code(s): I21.3 - ST elevation (STEMI) myocardial infarction of unspecified site Code(s): I21.3 - ST elevation (STEMI) myocardial infarction of unspecified site Status: Acute (2) Essential hypertension: Code(s): I10 - Essential (primary) hypertension Status: Acute (3) Hyperlipidemia: Code(s): E78.5 - Hyperlipidemia, unspecified Status: Acute (4) Diabetes mellitus: Code(s): E11.9 - Type 2 diabetes mellitus without complications Status: Acute (5) Chronic diarrhea: Code(s): K52.9 - Noninfective gastroenteritis and colitis, unspecified Status: Acute (6) Black stool: Code(s): K92.1 - Melena Status: Acute Plan STEMI: patient is s/p emergent LHC with totally occlued RCA that is s/p thrombectomy and TERESA placement. She has residual 70% mLAD lesion and 70-80% OM. Staged intervention with IFR will be arranged. Currently patient is pain free. Will continue aspirin and plavix at this time. Continue rosuvastatin. ECHO is pending. Syncope: Etiology unclear. Patient has history of syncope in past. Unclear if d/t arrhythmia versus vasovagal. Will monitor on tele no arrhythmia overnight. Will check echo for any valvular abnormalities. Will do carotid duplex to r/o stenosis. Chronic diarrhea with dark stools: CTA abdomen pelvis does suggest colitis. GI consult pending. H&H are stable. Cultures are pending. Hypertension: Blood pressure elevated at time of visit, had been better controlled. Would resume her home valsartan and monitor Hyperlipidemia: on rosuvastatin. LDL of 44 Diabetes Mellitus: will consult hospitalist for glycemic control Tinnitus: will check carotid duplex Communicating Hydrocephalus-with history of shunt Obesity: Weight loss encouraged Subjective Date/time seen: 04/05/25 10:03 Interval history: 04/05/25: Patient sitting up in bed and feeling well at this time. She denies any chest pain or shortness of breath. States she had some indigestion earlier, but has resolved. Has chronic diarrhea, but denies at this time. she is also, reporting whooshing soundin her ears. Review of Systems Review of Systems: All systems reviewed & are unremarkable except as noted in HPI and below Exam Narrative: General: Alert and oriented x 3. NAD Respiratory: lungs CTAB CV: S1, S2 GI: obese non-tender Extremities: no edema. Rt groin cath site S/D/I no hematoma. Objective Data Vital Signs Vital Signs: Vital Signs - 24 hr 04/04/25 20:00 04/04/25 20:17 04/04/25 20:17 Temperature Pulse Rate 67 62 Respiratory Rate 20 Blood Pressure 97/59 L Pulse Oximetry 97 97 Oxygen Delivery Room Air Room Air 04/04/25 20:17 04/04/25 21:49 04/04/25 22:04 Temperature 36.3 C L Pulse Rate 72 80 82 Respiratory Rate 16 13 15 Blood Pressure 97/59 L Pulse Oximetry 95 91 92 Oxygen Delivery 04/04/25 22:19 04/04/25 22:34 04/04/25 23:04 Temperature Pulse Rate 80 79 80 Respiratory Rate 15 13 14 Blood Pressure 120/49 L 121/70 129/76 Pulse Oximetry 98 98 97 Oxygen Delivery 04/04/25 23:34 04/05/25 00:00 04/05/25 00:00 Temperature 36.8 C Pulse Rate 84 86 Respiratory Rate 16 16 Blood Pressure 119/68 129/65 Pulse Oximetry 96 94 Oxygen Delivery Room Air 04/05/25 00:00 04/05/25 00:34 04/05/25 01:34 Temperature Pulse Rate 84 87 93 Respiratory Rate 17 16 Blood Pressure 131/62 117/60 Pulse Oximetry 92 92 Oxygen Delivery 04/05/25 02:00 04/05/25 02:00 04/05/25 02:34 Temperature Pulse Rate 95 95 100 Respiratory Rate 18 19 Blood Pressure 104/55 L 111/65 Pulse Oximetry 92 90 Oxygen Delivery 04/05/25 03:34 04/05/25 04:00 04/05/25 04:00 Temperature Pulse Rate 105 H 106 H Respiratory Rate 15 Blood Pressure 138/97 H Pulse Oximetry 96 Oxygen Delivery Room Air 04/05/25 04:00 04/05/25 06:00 04/05/25 06:00 Temperature 36.4 C L Pulse Rate 103 H 65 65 Respiratory Rate 20 18 Blood Pressure 122/62 108/45 L Pulse Oximetry 96 93 Oxygen Delivery 04/05/25 07:28 04/05/25 08:00 04/05/25 08:14 Temperature 36.4 C L Pulse Rate 69 71 71 Respiratory Rate 16 16 Blood Pressure 112/40 L Pulse Oximetry 95 95 Oxygen Delivery Room Air 04/05/25 09:30 Temperature Pulse Rate Respiratory Rate Blood Pressure 173/63 H Pulse Oximetry Oxygen Delivery Intake/Output Intake/Output: Intake & Output 04/02/25 04/03/25 04/04/25 04/05/25 23:59 23:59 23:59 23:59 Intake Total 480 Output Total 350 Balance 130 Meds/Results Medications: Active Medications Generic Name Dose Route Start Last Admin Trade Name Freq PRN Reason Stop Dose Admin Aspirin 81 mg 04/05/25 09:00 04/05/25 08:10 Aspirin 81 Mg Enteric Tablet PO 81 mg QAM PRESTON Administration Clopidogrel Bisulfate 75 mg 04/05/25 09:00 04/05/25 08:10 Clopidogrel Bisulfate 75 Mg Tablet PO 75 mg QAM PRESTON Administration Dextrose 12.5 gm 04/05/25 07:31 Dextrose 50% 25 Gm/50 Ml Syringe IV PUSH PRN PRN Hypoglycemia Protocol Glucagon 1 mg 04/05/25 07:31 Glucagon For Inj 1 Mg Vial IM PRN PRN Hypoglycemia Protocol Glucose 15 gm 04/05/25 07:31 Glucose Oral Gel 15 Gm Of Glucse In 37.5 Gm Tube PO PRN PRN Hypoglycemia Protocol Hydralazine HCl 20 mg 04/05/25 09:27 04/05/25 09:37 Hydralazine Hcl 20 Mg/Ml Vial IV PUSH 20 mg Q4H PRN Administration SBP >160 Sodium Chloride 1,000 mls @ 75 mls/hr 04/04/25 21:49 04/04/25 22:21 Normal Saline Iv IV CONT 04/05/25 11:08 75 mls/hr .[id number] ONE Administration Dextrose 1,000 mls @ 100 mls/hr 04/05/25 07:31 Dextrose 5% 1,000 Ml IVPB PRN PRN Hypoglycemia Protocol Piperacillin Sod/Tazobactam 50 mls @ 100 mls/hr 04/05/25 08:00 04/05/25 09:21 Sod 3.375 gm/ Sodium Chloride IVPB 100 mls/hr Q6H PRESTON Administration Lactated Ringer's 1,000 mls @ 50 mls/hr 04/05/25 08:00 Lr - Lactated Ringers Iv IV CONT 04/05/25 17:59 .Q20H PRESTON Insulin Aspart 1 - 3 units 04/05/25 21:00 Insulin Aspart (*Bkc) 100 Units/Ml SUB-Q HS PRESTON Protocol Insulin Aspart 3 - 6 units 04/05/25 08:00 04/05/25 08:10 Insulin Aspart (*Bkc) 100 Units/Ml SUB-Q 4 units TIDWM PRESTON Administration Protocol Levetiracetam 500 mg 04/05/25 09:00 04/05/25 08:10 Levetiracetam 500 Mg Tablet PO 500 mg Q12HR PRESTON Administration Levothyroxine Sodium 150 mcg 04/06/25 06:30 Levothyroxine Sodium 150 Mcg Tablet PO DAILY@0630 [facility] Metoprolol Tartrate 12.5 mg 04/05/25 09:00 04/05/25 08:14 Metoprolol Tartrate 12.5 Mg Tablet PO 12.5 mg Q12HR PRESTON Administration Pantoprazole Sodium 40 mg 04/05/25 09:00 04/05/25 08:09 Pantoprazole 40 Mg Tablet PO 40 mg Q12HR PRESTON Administration Perflutren Lipid Microsphere 0 ml 04/04/25 21:51 Perflutren Lipid Microspheres 1.5 Ml Vial Diluted To 10 Ml Total Volume IV PUSH 04/07/25 21:53 ONCE PRN adequate visualization Protocol Rosuvastatin Calcium 20 mg 04/05/25 09:00 04/05/25 08:10 Rosuvastatin 20 Mg Tablet PO 20 mg QAM PRESTON Administration Radiology Results: ITS Impressions Head CT 04/04/25 20:47 IMPRESSION: 1. Age-related changes including moderate diffuse volume loss and mild scattered white matter hypoattenuation consistent with chronic small vessel ischemic disease. No acute intracranial process. 2. Right ventricular shunt catheter with tip in the anterior horn of the right lateral ventricle. Chest X-Ray 04/04/25 20:50 IMPRESSION: 1. No acute cardiopulmonary disease. Chest/Abdomen/Pelvis CTA 04/04/25 20:56 IMPRESSION: 1. Normal caliber thoracic and abdominal aorta with no dissection. 2. Cluster of a few 4-6 mm pulmonary nodules at the posterior lingula which most likely infectious/inflammatory in etiology. If the patient is low risk for lung cancer, no follow-up is needed. If the patient is high risk (i.e., history of smoking or asbestos or significant radiation exposure), optional follow-up chest CT could be considered at 12 months. 3. Edematous-appearing wall thickening along the sigmoid colon suspicious for colitis which could be infectious or inflammatory in etiology. There are however numerous diverticula along the sigmoid colon and this could represent scarring related to chronic diverticulitis. 4. Finally physiologic or reactive free fluid in the pelvis. Labs Labs: Laboratory Results - last 24 hr 04/04/25 04/04/25 04/04/25 20:06 20:06 20:06 WBC 10.1 H RBC 3.60 L Hgb 10.1 L Hct 32.8 L MCV 91.1 MCH 28.1 MCHC 30.8 L RDW 14.4 Plt Count 357 MPV 11.0 H Immature Gran % (Auto) 0.3 Neut % (Auto) 58.3 Lymph % (Auto) 25.6 [place] % (Auto) 12.7 H Eos % (Auto) 2.4 Baso % (Auto) 0.7 Lymph # (Auto) 2.59 [place] # (Auto) 1.3 H Eos # (Auto) 0.2 Baso # (Auto) 0.1 Abs Immat Gran (auto) 0.03 Absolute Neuts (auto) 5.9 Absolute Nucleated RBC 0.000 Nucleated RBC % 0.0 PT 14.8 H INR 1.2 APTT 36.0 Sodium Cancelled 134 L Potassium Cancelled 3.8 Chloride Cancelled Carbon Dioxide Anion Gap BUN Creatinine Estim Creat Clear Calc Estimated GFR Glucose POC Capillary Glucose Hemoglobin A1c Calcium Total Bilirubin AST ALT Alkaline Phosphatase Total Creatine Kinase Troponin I NT-Pro-B Natriuret Pep Total Protein Albumin Triglycerides Cholesterol LDL Cholesterol Direct HDL Direct Nasal MRSA (PCR) Blood Type Antibody Screen 04/04/25 04/04/25 04/04/25 20:06 20:06 20:06 WBC RBC Hgb Hct MCV MCH MCHC RDW Plt Count MPV Immature Gran % (Auto) Neut % (Auto) Lymph % (Auto) [place] % (Auto) Eos % (Auto) Baso % (Auto) Lymph # (Auto) [place] # (Auto) Eos # (Auto) Baso # (Auto) Abs Immat Gran (auto) Absolute Neuts (auto) Absolute Nucleated RBC Nucleated RBC % PT INR APTT Sodium Potassium Chloride 108 H Carbon Dioxide Cancelled 14 L Anion Gap Cancelled 12 BUN Cancelled Creatinine Estim Creat Clear Calc Estimated GFR Glucose POC Capillary Glucose Hemoglobin A1c Calcium Total Bilirubin AST ALT Alkaline Phosphatase Total Creatine Kinase Troponin I NT-Pro-B Natriuret Pep Total Protein Albumin Triglycerides Cholesterol LDL Cholesterol Direct HDL Direct Nasal MRSA (PCR) Blood Type Antibody Screen 04/04/25 04/04/25 04/04/25 20:06 20:06 20:06 WBC RBC Hgb Hct MCV MCH MCHC RDW Plt Count MPV Immature Gran % (Auto) Neut % (Auto) Lymph % (Auto) [place] % (Auto) Eos % (Auto) Baso % (Auto) Lymph # (Auto) [place] # (Auto) Eos # (Auto) Baso # (Auto) Abs Immat Gran (auto) Absolute Neuts (auto) Absolute Nucleated RBC Nucleated RBC % PT INR APTT Sodium Potassium Chloride Carbon Dioxide Anion Gap BUN 19 H Creatinine Cancelled 1.28 H Estim Creat Clear Calc Cancelled Not Reportable Estimated GFR Cancelled Glucose POC Capillary Glucose Hemoglobin A1c Calcium Total Bilirubin AST ALT Alkaline Phosphatase Total Creatine Kinase Troponin I NT-Pro-B Natriuret Pep Total Protein Albumin Triglycerides Cholesterol LDL Cholesterol Direct HDL Direct Nasal MRSA (PCR) Blood Type Antibody Screen 04/04/25 04/04/25 04/04/25 20:06 20:06 20:06 WBC RBC Hgb Hct MCV MCH MCHC RDW Plt Count MPV Immature Gran % (Auto) Neut % (Auto) Lymph % (Auto) [place] % (Auto) Eos % (Auto) Baso % (Auto) Lymph # (Auto) [place] # (Auto) Eos # (Auto) Baso # (Auto) Abs Immat Gran (auto) Absolute Neuts (auto) Absolute Nucleated RBC Nucleated RBC % PT INR APTT Sodium Potassium Chloride Carbon Dioxide Anion Gap BUN Creatinine Estim Creat Clear Calc Estimated GFR 41 L Glucose Cancelled 159 H POC Capillary Glucose Hemoglobin A1c Calcium Cancelled 8.3 L Total Bilirubin Cancelled AST ALT Alkaline Phosphatase Total Creatine Kinase Troponin I NT-Pro-B Natriuret Pep Total Protein Albumin Triglycerides Cholesterol LDL Cholesterol Direct HDL Direct Nasal MRSA (PCR) Blood Type Antibody Screen 04/04/25 04/04/25 04/04/25 20:06 20:06 20:06 WBC RBC Hgb Hct MCV MCH MCHC RDW Plt Count MPV Immature Gran % (Auto) Neut % (Auto) Lymph % (Auto) [place] % (Auto) Eos % (Auto) Baso % (Auto) Lymph # (Auto) [place] # (Auto) Eos # (Auto) Baso # (Auto) Abs Immat Gran (auto) Absolute Neuts (auto) Absolute Nucleated RBC Nucleated RBC % PT INR APTT Sodium Potassium Chloride Carbon Dioxide Anion Gap BUN Creatinine Estim Creat Clear Calc Estimated GFR Glucose POC Capillary Glucose Hemoglobin A1c Calcium Total Bilirubin 0.3 AST Cancelled 12 L ALT Cancelled 12 Alkaline Phosphatase Cancelled Total Creatine Kinase Troponin I NT-Pro-B Natriuret Pep Total Protein Albumin Triglycerides Cholesterol LDL Cholesterol Direct HDL Direct Nasal MRSA (PCR) Blood Type Antibody Screen 04/04/25 04/04/25 04/04/25 20:06 20:06 20:06 WBC RBC Hgb Hct MCV MCH MCHC RDW Plt Count MPV Immature Gran % (Auto) Neut % (Auto) Lymph % (Auto) [place] % (Auto) Eos % (Auto) Baso % (Auto) Lymph # (Auto) [place] # (Auto) Eos # (Auto) Baso # (Auto) Abs Immat Gran (auto) Absolute Neuts (auto) Absolute Nucleated RBC Nucleated RBC % PT INR APTT Sodium Potassium Chloride Carbon Dioxide Anion Gap BUN Creatinine Estim Creat Clear Calc Estimated GFR Glucose POC Capillary Glucose Hemoglobin A1c Calcium Total Bilirubin AST ALT Alkaline Phosphatase 74 Total Creatine Kinase Troponin I < 0.012 NT-Pro-B Natriuret Pep Total Protein Cancelled 6.2 L Albumin Cancelled 3.4 L Triglycerides 244 H Cholesterol 115 LDL Cholesterol Direct 44 HDL Direct 26 Nasal MRSA (PCR) Blood Type O Positive Antibody Screen Negative 04/04/25 04/05/25 04/05/25 20:08 01:20 04:24 WBC RBC Hgb Hct MCV MCH MCHC RDW Plt Count MPV Immature Gran % (Auto) Neut % (Auto) Lymph % (Auto) [place] % (Auto) Eos % (Auto) Baso % (Auto) Lymph # (Auto) [place] # (Auto) Eos # (Auto) Baso # (Auto) Abs Immat Gran (auto) Absolute Neuts (auto) Absolute Nucleated RBC Nucleated RBC % PT INR APTT Sodium Potassium Chloride Carbon Dioxide Anion Gap BUN Creatinine Estim Creat Clear Calc Estimated GFR Glucose POC Capillary Glucose 151 H Hemoglobin A1c 7.1 H Calcium Total Bilirubin AST ALT Alkaline Phosphatase Total Creatine Kinase Troponin I 23.400 H* D NT-Pro-B Natriuret Pep Total Protein Albumin Triglycerides Cholesterol LDL Cholesterol Direct HDL Direct Nasal MRSA (PCR) Blood Type Antibody Screen 04/05/25 04/05/25 04/05/25 04:30 08:03 08:09 WBC 7.0 RBC 3.92 L Hgb 10.9 L Hct 35.2 L MCV 89.8 MCH 27.8 MCHC 31.0 L RDW 14.2 Plt Count 321 MPV 11.0 H Immature Gran % (Auto) 0.1 Neut % (Auto) 87.7 H Lymph % (Auto) 10.7 L [place] % (Auto) 1.4 L Eos % (Auto) 0.0 Baso % (Auto) 0.1 L Lymph # (Auto) 0.75 L [place] # (Auto) 0.1 Eos # (Auto) 0.0 Baso # (Auto) 0.0 Abs Immat Gran (auto) 0.01 Absolute Neuts (auto) 6.1 Absolute Nucleated RBC 0.000 Nucleated RBC % 0.0 PT INR APTT Sodium 134 L Potassium 4.0 Chloride 106 Carbon Dioxide 15 L Anion Gap 13 H BUN 17 Creatinine 1.01 H Estim Creat Clear Calc 44 Estimated GFR 54 L Glucose 247 H POC Capillary Glucose 262 H Hemoglobin A1c Calcium 8.7 Total Bilirubin AST ALT Alkaline Phosphatase Total Creatine Kinase 1020 H Troponin I 32.700 H* D NT-Pro-B Natriuret Pep 5060 H Total Protein Albumin Triglycerides Cholesterol LDL Cholesterol Direct HDL Direct Nasal MRSA (PCR) Not detected Blood Type Antibody Screen
--- NOTE | 2025-04-05 10:06 | PM.CNPUL ---
Assessment and Plan Assessment and plan (1) Multiple nodules of lung: Code(s): R91.8 - Other nonspecific abnormal finding of lung field Status: Acute Assessment and Plan: patient has a 15 pack year tobacco use, quit 1981. She has no infectious complaints. The patient tells me she has not had any prior CT scans of the chest. Patient had a CT angiogram chest abdomen pelvis to rule out aortic dissection and was found to have 3 nodules in the posterior aspect of the lingula measuring 4-6 mm. There is no mediastinal adenopathy. There is no bullous emphysema. there is also 7 x 4 mm nodule in the posterior segment of the right upper lobe that was abutting the pleura. Plan: Recommend patient repeat CT scan in 3-6 months. The patient will follow-up with her PCP in [facility]. I have told the patient to have a CD burnt with the images of her CT scan on that so she can take those to her PCP and or the radiology department where she has her follow-up scan. Will sign off. Call with questions. History of Present Illness History of Present Illness Consult date: 04/05/25 Chief complaint: stemi/stroke Narrative: 04/05/2025: This is a new pulmonary consult for lung nodules. 75-year-old with a history of hypothyroidism, arthritis, lipomas. Patient presented to the hospital on 04/04/2025 with altered mental status and chest pain. Patient had a CT angiogram chest abdomen pelvis to rule out aortic dissection and was found to have 3 nodules in the posterior aspect of the lingula measuring 4-6 mm. There is no mediastinal adenopathy. There is no bullous emphysema. there is also 7 x 4 mm nodule in the posterior segment of the right upper lobe that was abutting the pleura. Patient found to have ST-elevation MS and taken to the wastewater analyst lab analyst emergently and a drug-eluting stent was placed in the RCA. I was consulted for the pulmonary nodules. The patient denies asthma, COPD frequent pneumonias. She does say she gets lipomas throughout her body. She walks with a walker now and has no respiratory limitations in her activities of daily living. She denies fever, chills, rigors, phlegm production or hemoptysis. She has lost 17 lb in the last year because she lost her appetite and feels as if food gets stuck in her esophagus. This patient smoked tobacco from age [age] at 1/2 pack per day for total of 7.5 pack years. She was exposed to secondhand smoke from her father who smokes cigars and from her who smoked a pipe and cigars. She denies vaping, illicit drug use, sand blasting, welding, asbestos work, professional painting, coal mining, or construction work. 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 Currently the patient denies any shortness of breath. She is on room air with saturations 95%. DATA: EXAMINATION: CTA chest abdomen pelvis DATE: 04/04/2025 20:43 INDICATION: Chest pain TECHNIQUE: Computed tomographic angiography (CTA) of the chest, abdomen, and pelvis was performed without and with 100 mL Omnipaque-350 intravenous contrast. Additional 3D reconstructions utilizing coronal maximum intensity projection (MIP) were performed. Automated exposure control and iterative reconstruction technique were employed. The dose-length product was 1559.92 mGy-cm. COMPARISON: None FINDINGS: Chest: Cluster of four 4-6 mm pulmonary nodules in the posterior lingula which are most likely infectious/inflammatory in etiology. Mild dependent atelectasis in the bilateral lower lobes. No pneumonia, pulmonary edema, pleural effusion or pneumothorax. Heart size is normal. Atherosclerotic coronary artery calcification. No pericardial effusion. Thoracic aorta is normal in caliber with no dissection. Mild thoracic levocurvature with mild spondylosis and bridging osteophytes at multiple levels consistent with diffuse idiopathic skeletal hyperostosis (DISH). Abdomen and pelvis: Gallbladder is not visualized and likely sequela of absent. Liver, spleen, pancreas and bilateral adrenal glands are normal. There are regions of cortical scarring at both kidneys consistent with sequela of prior infection or infarction. 8 mm cyst at the upper pole of the right kidney. Fluid throughout the colon consistent with diarrhea. There is moderate sigmoid predominant diverticulosis without adjacent inflammatory change to suggest diverticulitis. There is edematous-appearing wall thickening along the sigmoid colon suspicious for colitis which could be infectious or inflammatory in etiology. No bowel obstruction. Bladder is normal. The uterus is not identified and has likely been surgically resected. Small amount of either reactive or physiologic free fluid in the pelvis. No abscess or free intraperineal gas. No pathologically enlarged abdominal or pelvic lymphadenopathy. There is small amount of nonhemodynamically significant calcified atherosclerosis of the normal caliber aorta and many of the other arteries. No aortic dissection. Mild thoracolumbar levocurvature with severe lumbar spondylosis. 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 IMPRESSION: 1. Normal caliber thoracic and abdominal aorta with no dissection. 2. Cluster of a few 4-6 mm pulmonary nodules at the posterior lingula which most likely infectious/inflammatory in etiology. If the patient is low risk for lung cancer, no follow-up is needed. If the patient is high risk (i.e., history of smoking or asbestos or significant radiation exposure), optional follow-up chest CT could be considered at 12 months. 3. Edematous-appearing wall thickening along the sigmoid colon suspicious for colitis which could be infectious or inflammatory in etiology. There are however numerous diverticula along the sigmoid colon and this could represent scarring related to chronic diverticulitis. 4. Finally physiologic or reactive free fluid in the pelvis. Review of Systems Constitutional: Constitutional: Reports no additional constitutional complaints Eyes: Eyes: Reports no additional eye complaints ENT: Reports system reviewed and no additional complaints, except as documented Cardiovascular: Cardiovascular: Reports no additional cardiovascular complaints Respiratory: Respiratory: Reports no additional respiratory complaints Gastrointestinal: Gastrointestinal: Reports no additional gastrointestinal complaints Musculoskeletal: Musculoskeletal: Reports no additional musculoskeletal complaints Neurologic: Reports system reviewed and no additional complaints, except as documented Psychiatric: Psychiatric: Reports no additional psychiatric complaints Endocrine: Endocrine: Reports no additional endocrine complaints Hematologic/Lymphatic: Hematologic/Lymphatic: Reports no additional hematologic/lymphatic complaints Allergic/Immunologic: Allergic/Immunologic: Reports no additional allergic/immunologic complaints [facility] Past Medical History Medical History (Updated 04/05/25 @ 10:14 by Kevin Blank MD) Pseudotumor cerebri Hypothyroidism Depression Anxiety Pulmonary nodule Fibromyalgia Migraine Hyperlipidemia Essential hypertension Diabetes mellitus Diverticulosis Chronic diarrhea Surgical History Surgical History (Updated 04/05/25 @ 08:06 by Kapil Andre MD) Status post ventriculoatrial shunt placement Family History Family History (Updated 04/04/25 @ 22:40 by Rashida Gagnon RN) Mother Cancer, uterine Father Cardiac complications Cancer, colon Bypass graft stenosis Social History Social History Smoking packs per day: 0.5 Smoking cigarettes per day: 10.0 Years smoked: 15 Smoking pack-years: 7.50 Smoking status: Former smoker Tobacco type: cigarettes Alcohol intake: never Substance use: never Lack of Transportation: No Lack of Food: Never True Current Housing: I Have Housing Concerned About Future Housing: No Difficulty Paying Gas/Electric Bills: No Difficulty Paying for Meds: No Currently Unemployed: No Education: High School Diploma/GED Difficulty w/ Childcare or Family Care: No Spiritual care concerns: No Meds Home Medications and Allergies Home Medications ?Medication ?Instructions ?Recorded ?Confirmed ?Type acetaminophen 500 mg capsule 1,000 mg PO TID PRN fever or pain 04/04/25 04/04/25 History amlodipine 10 mg tablet 10 mg PO DAILY 04/04/25 04/04/25 History aspirin 81 mg tablet 81 mg PO DAILY 04/04/25 04/04/25 History atorvastatin 20 mg tablet 20 mg PO HS 04/04/25 04/04/25 History cholecalciferol (vitamin D3) 25 25 mcg PO DAILY 04/04/25 04/04/25 History mcg (1,000 unit) capsule colestipol 1 gram tablet 1 g PO DAILY 04/04/25 04/04/25 History diclofenac sodium 75 mg 75 mg PO BID 04/04/25 04/04/25 History tablet,delayed release hydralazine 50 mg tablet 50 mg PO BID 04/04/25 04/04/25 History hydrocodone 7.5 mg-acetaminophen 1 tablet PO Q6H PRN pain 04/04/25 04/04/25 History 325 mg tablet levetiracetam 500 mg tablet 500 mg PO BID 04/04/25 04/04/25 History levothyroxine 150 mcg tablet 150 mcg PO DAILY 04/04/25 04/04/25 History lorazepam 1 mg tablet 2 mg PO HS PRN anxiety 04/04/25 04/04/25 History melatonin 10 mg capsule 10 mg PO HS 04/04/25 04/04/25 History metoprolol tartrate 100 mg tablet 100 mg PO BID 04/04/25 04/04/25 History pantoprazole 40 mg tablet,delayed 40 mg PO BID 04/04/25 04/04/25 History release paroxetine HCl 10 mg tablet 10 mg PO DAILY 04/04/25 04/04/25 History valsartan 80 mg tablet 80 mg PO DAILY 04/04/25 04/04/25 History Allergies Allergy/AdvReac Type Severity Reaction Status Date / Time iodine Allergy Intermediate Itching Verified 04/04/25 22:35 Sulfa (Sulfonamide Allergy Unknown Unknown Verified 04/04/25 22:35 Antibiotics) Vital Signs Vital Signs - 24 hr 04/04/25 20:00 04/04/25 20:17 04/04/25 20:17 Temperature Pulse Rate 67 62 Respiratory Rate 20 Blood Pressure 97/59 L Pulse Oximetry 97 97 Oxygen Delivery Room Air Room Air 04/04/25 20:17 04/04/25 21:49 04/04/25 22:04 Temperature 36.3 C L Pulse Rate 72 80 82 Respiratory Rate 16 13 15 Blood Pressure 97/59 L Pulse Oximetry 95 91 92 Oxygen Delivery 04/04/25 22:19 04/04/25 22:34 04/04/25 23:04 Temperature Pulse Rate 80 79 80 Respiratory Rate 15 13 14 Blood Pressure 120/49 L 121/70 129/76 Pulse Oximetry 98 98 97 Oxygen Delivery 04/04/25 23:34 04/05/25 00:00 04/05/25 00:00 Temperature 36.8 C Pulse Rate 84 86 Respiratory Rate 16 16 Blood Pressure 119/68 129/65 Pulse Oximetry 96 94 Oxygen Delivery Room Air 04/05/25 00:00 04/05/25 00:34 04/05/25 01:34 Temperature Pulse Rate 84 87 93 Respiratory Rate 17 16 Blood Pressure 131/62 117/60 Pulse Oximetry 92 92 Oxygen Delivery 04/05/25 02:00 04/05/25 02:00 04/05/25 02:34 Temperature Pulse Rate 95 95 100 Respiratory Rate 18 19 Blood Pressure 104/55 L 111/65 Pulse Oximetry 92 90 Oxygen Delivery 04/05/25 03:34 04/05/25 04:00 04/05/25 04:00 Temperature Pulse Rate 105 H 106 H Respiratory Rate 15 Blood Pressure 138/97 H Pulse Oximetry 96 Oxygen Delivery Room Air 04/05/25 04:00 04/05/25 06:00 04/05/25 06:00 Temperature 36.4 C L Pulse Rate 103 H 65 65 Respiratory Rate 20 18 Blood Pressure 122/62 108/45 L Pulse Oximetry 96 93 Oxygen Delivery 04/05/25 07:28 04/05/25 08:00 04/05/25 08:00 Temperature 36.4 C L Pulse Rate 69 71 68 Respiratory Rate 16 16 Blood Pressure 112/40 L Pulse Oximetry 95 95 Oxygen Delivery Room Air 04/05/25 08:14 04/05/25 09:30 Temperature Pulse Rate 71 Respiratory Rate Blood Pressure 173/63 H Pulse Oximetry Oxygen Delivery Exam Const: General: cooperative, healthy appearing and comfortable Orientation/consciousness: oriented to person, oriented to place and oriented to time HENMT: Head: normal to inspection Ears: hearing grossly normal bilaterally Eyes: General: appearance normal, both eyes and all related structures Neck: Neck: normal visual inspection Chest: Chest palpation & inspection: normal inspection of the chest Resp: Effort & Inspection: normal respiratory effort and able to speak in complete sentences Auscultation: no crackles, no rales, no rhonchi, no wheezes and lung sounds not diminished Cardio: Jugular venous distension: no JVD GI: Inspection: normal to inspection GI Palp: No abdominal tenderness Skin: General skin exam: normal color Neuro: General: oriented to person, oriented to place and oriented to time Extrem: General: normal to inspection Psych: Appearance: grossly normal Results Laboratory Findings 04/05/25 04:30 04/05/25 04:30 ABG, PT/INR, D-dimer: PT/INR, D-dimer PT 14.8 Seconds (11.1-14.7) H 04/04/25 20:06 INR 1.2 04/04/25 20:06 Abnormal lab findings: Abnormal Labs 04/04/25 04/04/25 04/05/25 20:06 20:08 01:20 WBC 10.1 H RBC 3.60 L Hgb 10.1 L Hct 32.8 L MCHC 30.8 L MPV 11.0 H Neut % (Auto) Lymph % (Auto) [place] % (Auto) 12.7 H Baso % (Auto) Lymph # (Auto) [place] # (Auto) 1.3 H PT 14.8 H Sodium 134 L Chloride 108 H Carbon Dioxide 14 L Anion Gap BUN 19 H Creatinine 1.28 H Estimated GFR 41 L Glucose 159 H POC Capillary Glucose 151 H Hemoglobin A1c Calcium 8.3 L AST 12 L Total Creatine Kinase Troponin I 23.400 H* D NT-Pro-B Natriuret Pep Total Protein 6.2 L Albumin 3.4 L Triglycerides 244 H 04/05/25 04/05/25 04/05/25 04:24 04:30 08:03 WBC RBC 3.92 L Hgb 10.9 L Hct 35.2 L MCHC 31.0 L MPV 11.0 H Neut % (Auto) 87.7 H Lymph % (Auto) 10.7 L [place] % (Auto) 1.4 L Baso % (Auto) 0.1 L Lymph # (Auto) 0.75 L [place] # (Auto) PT Sodium 134 L Chloride Carbon Dioxide 15 L Anion Gap 13 H BUN Creatinine 1.01 H Estimated GFR 54 L Glucose 247 H POC Capillary Glucose 262 H Hemoglobin A1c 7.1 H Calcium AST Total Creatine Kinase 1020 H Troponin I 32.700 H* D NT-Pro-B Natriuret Pep 5060 H Total Protein Albumin Triglycerides Diagnostic Findings Additional studies: ITS Impressions Head CT 04/04/25 20:47 IMPRESSION: 1. Age-related changes including moderate diffuse volume loss and mild scattered white matter hypoattenuation consistent with chronic small vessel ischemic disease. No acute intracranial process. 2. Right ventricular shunt catheter with tip in the anterior horn of the right lateral ventricle. Chest X-Ray 04/04/25 20:50 IMPRESSION: 1. No acute cardiopulmonary disease. Chest/Abdomen/Pelvis CTA 04/04/25 20:56
[2025-04-05 10:44] LABS: Troponin I 26.400 ng/mL (0.000-0.034)
[2025-04-05] MEDS: VALSARTAN 80 MG TABLET PO (11:13)
[2025-04-05 12:03] LABS: Appearance Urine Clear (Clear); Glucose Urine UA Negative (Negative); Leukocyte Esterase Ur 2+ LEU/UL (Negative); Nitrate Urine Negative (Negative); Specific Grav Ur 1.021 (1.001-1.035)
[2025-04-05 12:04] LABS: Add Urine Microscopic? YES; Non Pathogenic Casts 0-2
[2025-04-05] MEDS: LACTATED RINGERS 1,000 ML 50 ML IV CONT (12:38)
--- NOTE | 2025-04-05 12:55 | PM.IMCN ---
Assessment and Plan Assessment and plan (1) ST elevation (STEMI) myocardial infarction: Onset Date: 04/04/25 Qualifiers: Involved coronary artery: unspecified coronary artery Qualified Code(s): I21.3 - ST elevation (STEMI) myocardial infarction of unspecified site Code(s): I21.3 - ST elevation (STEMI) myocardial infarction of unspecified site Status: Acute Assessment and Plan: Patient arrived to the ER on 04/04. Initial EKG showed acute STEMI. Taken for emergent LHC on 04/04. 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 Residual 70% mLAD lesion and 70-80% OM. - troponin: <0.012 -> 23.4 -> 32.7 -> 26.4 - cardiology recommended stage intervention with IFR. Continue aspirin, Plavix, rosuvastatin. Echo pending. Unclear if patient syncopized, recommended checking carotid duplex to rule out stenosis. - telemetry monitoring (2) Black stool: Code(s): K92.1 - Melena Status: Acute Assessment and Plan: - GI consulted >> DDx - motility disorder, malabsorption, IBD or microscopic colitis. less likely C diff given the chronic nature of symptoms. Recommended: reduction in diet soda, drinks 2L daily, may be contributing to diarrhea stool studies outpatient colonoscopy, last attempted 1-2 years ago but could not be completed due to poor prep continue Zosyn Imodium prn if stool studies negative for infectious etiology PPI BID - monitor H/H (3) Diverticulitis: Code(s): K57.92 - Diverticulitis of intestine, part unspecified, without perforation or abscess without bleeding Status: Acute Assessment and Plan: - CTA chest/abd/pelvis: 1. Normal caliber thoracic and abdominal aorta with no dissection. 2. Cluster of a few 4-6 mm pulmonary nodules at the posterior lingula which most likely infectious/inflammatory in etiology. If the patient is low risk for lung cancer, no follow-up is needed. If the patient is high risk (i.e., history of smoking or asbestos or significant radiation exposure), optional follow-up chest CT could be considered at 12 months. 3. Edematous-appearing wall thickening along the sigmoid colon suspicious for colitis which could be infectious or inflammatory in etiology. There are however numerous diverticula along the sigmoid colon and this could represent scarring related to chronic diverticulitis. 4. Finally physiologic or reactive free fluid in the pelvis. - started on Zosyn on 04/05 - IV fluids: LR 50 mL/hr x10hrs - pain medication prn - daily clinical reassessment for improvement (4) Chronic diarrhea: Code(s): K52.9 - Noninfective gastroenteritis and colitis, unspecified Status: Acute Assessment and Plan: - see GI consult above (5) Elevated serum creatinine: Code(s): R79.89 - Other specified abnormal findings of blood chemistry Status: Acute Assessment and Plan: Creatinine 1.28, BUN 19, GFR 41 upon admission on 04/04. No previous history of CKD known to patient. However she does have risk factors including diabetes and hypertension. May have hypovolemia component as she has had chronic diarrhea for some time. - creatinine improving, 1.01 and GFR 54 on 04/04 - IV fluids: LR 50 mL/hr x10hrs - check echo, CK, urine electrolytes, UA and micro - reviewed imaging, no obstruction or stones on CTA - Elizabeth in place, monitor I&Os - trend renal function and electrolytes (6) Pulmonary nodule: Code(s): R91.1 - Solitary pulmonary nodule Status: Acute Assessment and Plan: CT showed a cluster of a few 4-6 mm pulmonary nodules at the posterior lingula which most likely infectious/inflammatory in etiology. If the patient is low risk for lung cancer, no follow-up is needed. If the patient is high risk (i.e., history of smoking or asbestos or significant radiation exposure), optional follow-up chest CT could be considered at 12 months. She has a 15 pack year tobacco use, quit 1981. - pulmonary consulted >> recommended Recommend patient repeat CT scan in 3-6 months. The patient will follow-up with her PCP in [facility]. I have told the patient to have a CD burnt with the images of her CT scan on that so she can take those to her PCP and or the radiology department where she has her follow-up scan. (7) Diabetes mellitus: Qualifiers: Diabetes mellitus type: type 2 Diabetes mellitus buttermaker helper insulin use: without custodial use Diabetes mellitus complication status: without complication Qualified Code(s): E11.9 - Type 2 diabetes mellitus without complications Code(s): E11.9 - Type 2 diabetes mellitus without complications Status: Acute Assessment and Plan: - hypoglycemia protocol - POC blood glucose ACHS - not currently on an antidiabetic medication, has previously discussed G LP once with her PCP. Patient had fear of gastroparesis and side effects, had long discussion of risks and benefits of GLP1s. Patient appears open to trying this if indicated. - correct regimen ordered - high dose TIDWM, based off BMI - A1C 7.1% on 04/05/25 (8) Essential hypertension: Code(s): I10 - Essential (primary) hypertension Status: Chronic Assessment and Plan: - chronic, currently 143/55, stable. - continue valsartan 80 mg daily. Hold home p.o. hydralazine, metoprolol, and amlodipine. Patient was started on metoprolol 12.5 mg b.i.d. and has hydralazine IVP ordered. - monitor (9) Hyperlipidemia: Qualifiers: Hyperlipidemia type: unspecified Qualified Code(s): E78.5 - Hyperlipidemia, unspecified Code(s): E78.5 - Hyperlipidemia, unspecified Status: Chronic Assessment and Plan: - hold home atorvastatin, started on rosuvastatin 20 mg daily. (10) Hypothyroidism: Qualifiers: Hypothyroidism type: unspecified Qualified Code(s): E03.9 - Hypothyroidism, unspecified Code(s): E03.9 - Hypothyroidism, unspecified Status: Chronic Assessment and Plan: - continue levothyroxine - checking TSH (11) Migraine: Qualifiers: Intractability: not intractable Migraine type: unspecified Status migrainosus presence: without status migrainosus Qualified Code(s): G43.909 - Migraine, unspecified, not intractable, without status migrainosus Code(s): G43.909 - Migraine, unspecified, not intractable, without status migrainosus Status: Chronic Assessment and Plan: - continue Keppra Plan Diet: heart healthy GI Prophylaxis: PPI PO BID DVT Prophylaxis: SCDs IV fluids: LR 50 mL/hr x10hrs Lines/Tubes: peripheral IV Code Status: full code HPI Date of Consult Consult date: 04/05/25 Requesting Physician: Dav Henry MD Primary Care Provider: TREE INSPECTOR PHYSICIAN Consult Narrative Reason for consult: Medical Management Narrative: 75 y/o F with PMH of diabetes, hypertension, hyperlipidemia, migraine, depression, anxiety, chronic diarrhea, diverticulosis presented here with AMS, chest pain, and syncope. The patient presented here from her son's house via EMS for further evaluation of generalized weakness, altered mental status, chest pain, diarrhea, and possible syncope. She reports she began feeling general malaise around 6 p.m. last night (04/04). Concern initially for syncope, however the patient is reporting she laid herself down and was unable to get up but did not pass out. She reports she was experiencing GI upset, nausea without vomiting, dizziness, and chest discomfort. She described the chest discomfort as achy, midsternal, nonradiating, constant, and no modifying factors. Further described as indigestion-like, however different than her normal abdominal discomfort. She reports epigastric discomfort and loose stools, however these are chronic for her. She does report change in her stool, has been having dark/black stools for the past month. She has been taking Imodium and Pepto-Bismol intermittently for her symptoms. Has been told previously told to not utilize the Imodium due to her hx of diverticulosis/diverticulitis. Last colonoscopy was 7-8 years ago, failed prep 2-3 years ago. During her work up in the ED, the patient was found to have an acute STEMI. Initial troponin was negative, repeat was 23.4. She went for an emergent LHC which showed an acute distal RCA acute total occlusion. Initial VS at presentation: 97.4? F, HR 67, R 20, 97/59, and 97% on RA. ED workup showed: WBC 10.1, hemoglobin 10.1, INR 1.2, sodium 134, creatinine 1.28 and GFR 41, glucose 159, initial troponin negative (repeat 23.4), and UA showed 2+ leuk esterase/11-[address] showed age-related changes and a right ventricular shunt catheter with tip at the anterior horn of the right lateral ventricle. CXR showed no acute cardiopulmonary disease. Chest CTA showed normal caliber thoracic and abdominal aorta with no dissection, cluster few 4-6 mm pulmonary nodules, edematous appearing wall thickening along the sigmoid colon suspicious for colitis, physiologic or reactive free fluid in the pelvis. Initially EKG showed AFib, inferior STEMI acute, reciprocal ST depression high lateral leads. Review of Systems Review of Systems: All systems reviewed & are unremarkable except as noted in HPI and below PMFSH Past Medical History Medical History (Updated 04/05/25 @ 22:15 by La Choudhury APRN) ST elevation (STEMI) myocardial infarction (04/04/25) Pseudotumor cerebri Hypothyroidism Depression Anxiety Pulmonary nodule Fibromyalgia Migraine Hyperlipidemia Essential hypertension Diabetes mellitus Diverticulosis Chronic diarrhea Surgical History Surgical History (Updated 04/05/25 @ 21:17 by La Choudhury APRN) History of cholecystectomy History of appendectomy History of hysterectomy Status post ventriculoatrial shunt placement Family History Family History Mother Cancer, uterine Father Cardiac complications Cancer, colon Bypass graft stenosis Social History Social History Smoking packs per day: 0.5 Smoking cigarettes per day: 10.0 Years smoked: 15 Smoking pack-years: 7.50 Smoking status: Former smoker Tobacco type: cigarettes Alcohol intake: never Substance use: never Lack of Transportation: No Lack of Food: Never True Current Housing: I Have Housing Concerned About Future Housing: No Difficulty Paying Gas/Electric Bills: No Difficulty Paying for Meds: No Currently Unemployed: No Education: High School Diploma/GED Difficulty w/ Childcare or Family Care: No Spiritual care concerns: No Meds Home Medications and Allergies Home Medications ?Medication ?Instructions ?Recorded ?Confirmed ?Type acetaminophen 500 mg capsule 1,000 mg PO TID PRN fever or pain 04/04/25 04/04/25 History amlodipine 10 mg tablet 10 mg PO DAILY 04/04/25 04/04/25 History aspirin 81 mg tablet 81 mg PO DAILY 04/04/25 04/04/25 History atorvastatin 20 mg tablet 20 mg PO HS 04/04/25 04/04/25 History cholecalciferol (vitamin D3) 25 25 mcg PO DAILY 04/04/25 04/04/25 History mcg (1,000 unit) capsule colestipol 1 gram tablet 1 g PO DAILY 04/04/25 04/04/25 History diclofenac sodium 75 mg 75 mg PO BID 04/04/25 04/04/25 History tablet,delayed release hydralazine 50 mg tablet 50 mg PO BID 04/04/25 04/04/25 History hydrocodone 7.5 mg-acetaminophen 1 tablet PO Q6H PRN pain 04/04/25 04/04/25 History 325 mg tablet levetiracetam 500 mg tablet 500 mg PO BID 04/04/25 04/04/25 History levothyroxine 150 mcg tablet 150 mcg PO DAILY 04/04/25 04/04/25 History lorazepam 1 mg tablet 2 mg PO HS PRN anxiety 04/04/25 04/04/25 History melatonin 10 mg capsule 10 mg PO HS 04/04/25 04/04/25 History metoprolol tartrate 100 mg tablet 100 mg PO BID 04/04/25 04/04/25 History pantoprazole 40 mg tablet,delayed 40 mg PO BID 04/04/25 04/04/25 History release paroxetine HCl 10 mg tablet 10 mg PO DAILY 04/04/25 04/04/25 History valsartan 80 mg tablet 80 mg PO DAILY 04/04/25 04/04/25 History clopidogrel 75 mg tablet 75 mg PO QAM #90 tabs 04/05/25 Rx Allergies Allergy/AdvReac Type Severity Reaction Status Date / Time iodine Allergy Intermediate Itching Verified 04/04/25 22:35 Sulfa (Sulfonamide Allergy Unknown Unknown Verified 04/04/25 22:35 Antibiotics) Vital Signs Vital Signs - 24 hr 04/04/25 20:00 04/04/25 20:17 04/04/25 20:17 Temperature Pulse Rate 67 62 Respiratory Rate 20 Blood Pressure 97/59 L Pulse Oximetry 97 97 Oxygen Delivery Room Air Room Air 04/04/25 20:17 04/04/25 21:49 04/04/25 22:04 Temperature 97.4 F L Pulse Rate 72 80 82 Respiratory Rate 16 13 15 Blood Pressure 97/59 L Pulse Oximetry 95 91 92 Oxygen Delivery 04/04/25 22:19 04/04/25 22:34 04/04/25 23:04 Temperature Pulse Rate 80 79 80 Respiratory Rate 15 13 14 Blood Pressure 120/49 L 121/70 129/76 Pulse Oximetry 98 98 97 Oxygen Delivery 04/04/25 23:34 04/05/25 00:00 04/05/25 00:00 Temperature 98.2 F Pulse Rate 84 86 Respiratory Rate 16 16 Blood Pressure 119/68 129/65 Pulse Oximetry 96 94 Oxygen Delivery Room Air 04/05/25 00:00 04/05/25 00:34 04/05/25 01:34 Temperature Pulse Rate 84 87 93 Respiratory Rate 17 16 Blood Pressure 131/62 117/60 Pulse Oximetry 92 92 Oxygen Delivery 04/05/25 02:00 04/05/25 02:00 04/05/25 02:34 Temperature Pulse Rate 95 95 100 Respiratory Rate 18 19 Blood Pressure 104/55 L 111/65 Pulse Oximetry 92 90 Oxygen Delivery 04/05/25 03:34 04/05/25 04:00 04/05/25 04:00 Temperature Pulse Rate 105 H 106 H Respiratory Rate 15 Blood Pressure 138/97 H Pulse Oximetry 96 Oxygen Delivery Room Air 04/05/25 04:00 04/05/25 06:00 04/05/25 06:00 Temperature 97.5 F L Pulse Rate 103 H 65 65 Respiratory Rate 20 18 Blood Pressure 122/62 108/45 L Pulse Oximetry 96 93 Oxygen Delivery 04/05/25 07:28 04/05/25 08:00 04/05/25 08:00 Temperature 97.5 F L Pulse Rate 69 71 68 Respiratory Rate 16 16 Blood Pressure 112/40 L Pulse Oximetry 95 95 Oxygen Delivery Room Air 04/05/25 08:14 04/05/25 09:30 04/05/25 10:00 Temperature Pulse Rate 71 72 Respiratory Rate Blood Pressure 173/63 H Pulse Oximetry Oxygen Delivery 04/05/25 10:01 04/05/25 12:00 Temperature 98 F Pulse Rate 77 72 Respiratory Rate 13 18 Blood Pressure 132/73 143/55 H Pulse Oximetry 97 98 Oxygen Delivery Exam Const: General: comfortable and no acute distress Other: , female, nontoxic appearance HENMT: Face/Nose/Sinus: Normal nares present Mouth: Yes moist mucous membranes Eyes: General: appearance normal, both eyes and all related structures Sclera: sclerae normal Pupils: Equal, round and reactive pupils present EOM: EOMs intact bilaterally Resp: Effort & Inspection: normal respiratory effort Auscultation: clear to auscultation bilaterally Cardio: Rate: regular rate Rhythm: regular rhythm Other: S1-S2 present without murmur, rub, ectopy GI: Other: Abdomen soft. Tender in the left lower quadrant. Hyperactive bowel sounds in all quadrants. Nondistended. Skin: General skin exam: normal color and no rashes or lesions noted Wounds: no wounds Neuro: Speech: normal speech Motor exam (neuro): 5/5 motor strength present throughout Sensory Exam: normal sensation Other: A&O x4 Extrem: Other: trace edema to BLE, non-pitting. Psych: Mental Status: mental status grossly normal Affect: normal affect Other: Good insight and judgment, pleasant Results Labs 04/05/25 04:30 04/05/25 04:30 Labs: Short CBC 04/04/25 04/05/25 Range/Units 20:06 04:30 WBC 10.1 H 7.0 (4.5-10.0) K/mm3 Hgb 10.1 L 10.9 L (12.0-15.0) g/dL Hct 32.8 L 35.2 L (37.0-47.0) % Plt Count 357 321 (150-375) k/mm3 BMP 04/04/25 04/04/25 04/04/25 20:06 20:06 20:06 Sodium Cancelled 134 L Potassium Cancelled 3.8 Chloride Cancelled Carbon Dioxide BUN Creatinine Glucose Calcium 04/04/25 04/04/25 04/04/25 20:06 20:06 20:06 Sodium Potassium Chloride 108 H Carbon Dioxide Cancelled 14 L BUN Cancelled 19 H Creatinine Cancelled Glucose Calcium 04/04/25 04/04/25 04/04/25 20:06 20:06 20:06 Sodium Potassium Chloride Carbon Dioxide BUN Creatinine 1.28 H Glucose Cancelled 159 H Calcium Cancelled 8.3 L 04/05/25 04:30 Sodium 134 L Potassium 4.0 Chloride 106 Carbon Dioxide 15 L BUN 17 Creatinine 1.01 H Glucose 247 H Calcium 8.7 Cardiac Enzymes 04/04/25 04/05/25 04/05/25 Range/Units 20:06 01:20 04:30 Total Creatine Kinase 1020 H (30-135) U/L Troponin I < 0.012 23.400 H* D 32.700 H* D (0.000-0.034) ng/mL 04/05/25 Range/Units 10:12 Total Creatine Kinase (30-135) U/L Troponin I 26.400 H* (0.000-0.034) ng/mL Liver Function 04/04/25 04/04/25 04/04/25 Range/Units 20:06 20:06 20:06 Total Bilirubin Cancelled 0.3 AST Cancelled 12 L ALT Cancelled Alkaline Phosphatase Albumin 04/04/25 04/04/25 04/04/25 Range/Units 20:06 20:06 20:06 Total Bilirubin AST ALT 12 Alkaline Phosphatase Cancelled 74 Albumin Cancelled 3.4 L Urine 04/05/25 Range/Units 11:54 Urine Color Yellow (Yellow) Urine Appearance Clear (Clear) Urine pH 6.0 (5.0-9.0) Ur Specific [place] 1.021 (1.001-1.035) Urine Protein Negative (Negative) mg/dL Urine Glucose (UA) Negative (Negative) mg/dL Quality VTE Prophylaxis VTE prophylaxis: mechanical ordered Hospitalist MIPS Advance Care Plan I have confirmed that the patient's Advanced Care Plan is present, code status is documented, or surrogate decision maker is listed in patient medical record.: Yes Medication Reconciliation I have utilized all available resources to obtain, update and review the patients current medications (includes all prescriptions, OTC, herbals, cannabis, and nutritional supplements).: Yes
[2025-04-05 17:13] LABS: IFOB Positive Control Positive; Immunochemical Fecal Occult Bl Positive (N)
[2025-04-05 17:48] LABS: Toxigenic C. Diff NEGATIVE (NEGATIVE)
--- NOTE | 2025-04-05 19:28 | PC.NURSE ---
Plavix received from [facility] and given to pt's , Abelardo to be taken home for patient.
[2025-04-05] MEDS: LORazepam (*CRX) 1 MG TABLET 2 MG PO (20:36)
[2025-04-05] MEDS: ACETAMINOPHEN 325 MG TABLET 650 MG PO (20:39)
[2025-04-06] VITALS (11 sets, daily range): BP systolic 126–168; BP diastolic 62–114; PULSE 64–84; RESP 8–20; TEMP 36.6–36.8; O2SAT 94–100
[2025-04-06] MEDS: PIPERACILLIN/TAZOBACTAM SOD 3.375 GM in SODIUM CHLORIDE 0.9% IV 50 ML 100 ML IVPB ×2 (01:44→09:31)
[2025-04-06 03:51] LABS: Hematocrit 29.7 % (37.0-47.0); Hemoglobin 9.5 g/dL (12.0-15.0); Mean Corpuscular HGB Conc 32.0 g/dl (32-36); Mean Corpuscular Hemoglobin 28.4 pg (26-34); Mean Corpuscular Volume 88.7 fl (80-100); Platelet Count Result 325 k/mm3 (150-375); Red Blood Count 3.35 M/mm3 (4.2-5.4); White Blood Count 8.9 K/mm3 (4.5-10.0)
[2025-04-06 04:04] LABS: Alanine Aminotransferase 22 U/L (6-35); Albumin Level 3.6 g/dL (3.5-5.1); Alkaline Phosphatase 69 U/L (38-126); Anion Gap 12 mmol/L (4-12); Aspartate Amino Transferase 60 U/L (14-36); Bilirubin,Total 0.4 mg/dL (0.2-1.3); Blood Urea Nitrogen 17 mg/dL (7-17); Calcium 8.7 mg/dL (8.4-10.2); Carbon Dioxide 17 mmol/L (22-30); Chloride 108 mmol/L (98-107); Estimated CRCL calculation 40 ml/min; Estimated Glomerular Filt Rate 48; Glucose 177 mg/dL (65-110); Magnesium 1.4 mg/dL (1.6-2.3); Potassium 3.2 mmol/L (3.4-5.0); Sodium 137 mmol/L (137-145); Total Protein 6.3 g/dL (6.3-8.2)
[2025-04-06 04:36] LABS: Thyroid Stimulating Hormone Reflex 0.362 uIU/mL (0.465-4.68)
[2025-04-06] MEDS: MAGNESIUM SULF 2 GM/WATER 50ML 2 GM/50 ML BAG IVPB (05:46)
[2025-04-06] MEDS: POTASSIUM CHLORIDE 20 MEQ ER TABLET PO (05:46)
[2025-04-06] MEDS: LEVOTHYROXINE SODIUM 150 MCG TABLET PO (05:46)
[2025-04-06 07:16] LABS: Free T4 Free Thyroxine Reflex 2.12 ng/dL (0.78-2.19)
[2025-04-06] MEDS: PANTOPRAZOLE 40 MG TABLET PO ×2 (09:30→21:03)
[2025-04-06] MEDS: ACETAMINOPHEN 325 MG TABLET 650 MG PO ×3 (09:30→21:15)
[2025-04-06] MEDS: CLOPIDOGREL BISULFATE 75 MG TABLET PO (09:30)
[2025-04-06] MEDS: CHOLECALCIFEROL (VITAMIN D3) 25 MCG (1,000 UNITS) TABLET PO (09:31)
[2025-04-06] MEDS: ROSUVASTATIN 20 MG TABLET PO (09:31)
[2025-04-06] MEDS: POTASSIUM BICARBONATE 25 MEQ TABEF 50 MEQ PO (09:31)
[2025-04-06] MEDS: ASPIRIN 81 MG ENTERIC TABLET PO (09:31)
[2025-04-06] MEDS: METOPROLOL TARTRATE 25 MG TABLET PO ×2 (09:31→21:03)
[2025-04-06] MEDS: VALSARTAN 80 MG TABLET PO (09:42)
--- NOTE | 2025-04-06 11:13 | PM.PNCARD ---
Progress Note: A&P Assessment and Plan (1) ST elevation (STEMI) myocardial infarction: Onset Date: 04/04/25 Qualifiers: Involved coronary artery: unspecified coronary artery Qualified Code(s): I21.3 - ST elevation (STEMI) myocardial infarction of unspecified site Code(s): I21.3 - ST elevation (STEMI) myocardial infarction of unspecified site Status: Acute (2) Essential hypertension: Code(s): I10 - Essential (primary) hypertension Status: Chronic (3) Hyperlipidemia: Qualifiers: Hyperlipidemia type: unspecified Qualified Code(s): E78.5 - Hyperlipidemia, unspecified Code(s): E78.5 - Hyperlipidemia, unspecified Status: Chronic (4) Diabetes mellitus: Qualifiers: Diabetes mellitus complication status: without complication 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 She has residual 70% mLAD lesion and 70-80% OM. Staged intervention with IFR will be arranged. Currently patient is pain free. Will continue aspirin and plavix at this time. Continue rosuvastatin. ECHO done and demonstrated EF of 60-65% with mild MR and TR. Syncope: Etiology unclear. Patient has history of syncope in past. Unclear if d/t arrhythmia versus vasovagal. Will monitor on tele no arrhythmia overnight. echo noted above. Carotid duplex showed 50-69% LICA and <50% or HELGA. Can consider OP tele monitoring Chronic diarrhea with dark stools: CTA abdomen pelvis does suggest colitis. GI following and recommending dietary changes and OP follow up. H&H are stable. FOBT +, but H&H stable and in setting of chronic diarrhea Diverticulitis: on IV antibiotics as per primary team. No pain at this time. Possible transition to oral? Hypertension: Blood pressure somewhat better this am. continue present med regimen and monitor. Hyperlipidemia: on rosuvastatin. LDL of 44 Diabetes Mellitus: will consult hospitalist for glycemic control Carotid stenosis. LICA of 50-69%, will follow as OP. Continue aspirin, plavix and rosuvastatin Communicating Hydrocephalus-with history of shunt Obesity: Weight loss encouraged Will order PT/OT. Possible dc home tomorrow if ok with others Subjective Date/time seen: 04/06/25 11:13 Interval history: Date of service 04/06/25: Patient lying in bed she states feeling better today. She denies any chest pain or pressure. No dizziness or palpitations. Denies any dark or bloody stools Review of Systems Review of Systems: All systems reviewed & are unremarkable except as noted in HPI and below Exam Narrative: General: Alert and oriented x 3. NAD Respiratory: lungs CTAB CV: S1, S2 GI: obese non-tender Extremities: no edema. Rt groin cath site S/D/I no hematoma. Objective Data Vital Signs Vital Signs: Vital Signs - 24 hr 04/05/25 12:00 04/05/25 12:00 04/05/25 12:00 Temperature 36.6 C Pulse Rate 72 72 70 Respiratory Rate 18 18 Blood Pressure 143/55 H Pulse Oximetry 98 98 Oxygen Delivery Room Air 04/05/25 14:00 04/05/25 16:00 04/05/25 16:00 Temperature 36.8 C Pulse Rate 71 70 71 Respiratory Rate 12 18 Blood Pressure 151/64 H Pulse Oximetry 97 98 Oxygen Delivery Room Air 04/05/25 16:00 04/05/25 18:00 04/05/25 20:00 Temperature 36.7 C Pulse Rate 74 75 72 Respiratory Rate 17 Blood Pressure 156/130 H Pulse Oximetry 99 Oxygen Delivery 04/05/25 20:00 04/05/25 20:00 04/05/25 20:36 Temperature Pulse Rate 74 67 Respiratory Rate Blood Pressure Pulse Oximetry 99 Oxygen Delivery Room Air 04/05/25 22:00 04/06/25 00:00 04/06/25 00:00 Temperature 36.6 C Pulse Rate 66 69 Respiratory Rate 19 Blood Pressure 142/114 H Pulse Oximetry 95 95 Oxygen Delivery Room Air 04/06/25 00:00 04/06/25 02:00 04/06/25 04:00 Temperature Pulse Rate 70 75 Respiratory Rate Blood Pressure Pulse Oximetry 95 Oxygen Delivery Room Air 04/06/25 04:00 04/06/25 04:00 04/06/25 06:00 Temperature 36.7 C Pulse Rate 71 71 71 Respiratory Rate 20 Blood Pressure 136/62 Pulse Oximetry 96 Oxygen Delivery 04/06/25 09:31 Temperature Pulse Rate 79 Respiratory Rate Blood Pressure Pulse Oximetry Oxygen Delivery Intake/Output Intake/Output: Intake & Output 04/03/25 04/04/25 04/05/25 04/06/25 23:59 23:59 23:59 23:59 Intake Total 2110 300 Output Total 900 800 Balance 1210 -500 Meds/Results Medications: Active Medications Generic Name Dose Route Start Last Admin Trade Name Freq PRN Reason Stop Dose Admin Acetaminophen 650 mg 04/05/25 20:30 04/06/25 09:30 Acetaminophen 325 Mg Tablet PO 650 mg Q4H PRN Administration Mild Pain (1-3) or Fever Aspirin 81 mg 04/05/25 09:00 04/06/25 09:31 Aspirin 81 Mg Enteric Tablet PO 81 mg QAM PRESTON Administration Clopidogrel Bisulfate 75 mg 04/05/25 09:00 04/06/25 09:30 Clopidogrel Bisulfate 75 Mg Tablet PO 75 mg QAM PRESTON Administration Dextrose 12.5 gm 04/05/25 07:31 Dextrose 50% 25 Gm/50 Ml Syringe IV PUSH PRN PRN Hypoglycemia Protocol Glucagon 1 mg 04/05/25 07:31 Glucagon For Inj 1 Mg Vial IM PRN PRN Hypoglycemia Protocol Glucose 15 gm 04/05/25 07:31 Glucose Oral Gel 15 Gm Of Glucse In 37.5 Gm Tube PO PRN PRN Hypoglycemia Protocol Hydralazine HCl 20 mg 04/05/25 09:27 04/05/25 09:37 Hydralazine Hcl 20 Mg/Ml Vial IV PUSH 20 mg Q4H PRN Administration SBP >160 Dextrose 1,000 mls @ 100 mls/hr 04/05/25 07:31 Dextrose 5% 1,000 Ml IVPB PRN PRN Hypoglycemia Protocol Piperacillin Sod/Tazobactam 50 mls @ 100 mls/hr 04/05/25 08:00 04/06/25 09:31 Sod 3.375 gm/ Sodium Chloride IVPB 100 mls/hr Q6H PRESTON Administration Insulin Aspart 4 - 8 units 04/05/25 17:00 04/06/25 07:37 Insulin Aspart (*Bkc) 100 Units/Ml SUB-Q Not Given TIDWM PRESTON Protocol Levetiracetam 500 mg 04/05/25 09:00 04/06/25 09:30 Levetiracetam 500 Mg Tablet PO 500 mg Q12HR PRESTON Administration Levothyroxine Sodium 150 mcg 04/06/25 06:30 04/06/25 05:46 Levothyroxine Sodium 150 Mcg Tablet PO 150 mcg DAILY@0630 PRESTON Administration Lorazepam 2 mg 04/05/25 13:35 04/05/25 20:36 Lorazepam (*Crx) 1 Mg Tablet PO 2 mg HS PRN Administration Anxiety Melatonin 10 mg 04/05/25 21:00 04/05/25 20:37 Melatonin 5 Mg Tablet PO 10 mg HS PRESTON Administration Metoprolol Tartrate 25 mg 04/06/25 09:00 04/06/25 09:31 Metoprolol Tartrate 25 Mg Tablet PO 25 mg Q12HR PRESTON Administration Pantoprazole Sodium 40 mg 04/05/25 09:00 04/06/25 09:30 Pantoprazole 40 Mg Tablet PO 40 mg Q12HR PRESTON Administration Paroxetine HCl 10 mg 04/06/25 09:00 04/06/25 09:31 Paroxetine 10 Mg Tablet PO 10 mg DAILY PRESTON Administration Perflutren Lipid Microsphere 0 ml 04/04/25 21:51 Perflutren Lipid Microspheres 1.5 Ml Vial Diluted To 10 Ml Total Volume IV PUSH 04/07/25 21:53 ONCE PRN adequate visualization Protocol Rosuvastatin Calcium 20 mg 04/05/25 09:00 04/06/25 09:31 Rosuvastatin 20 Mg Tablet PO 20 mg QAM PRESTON Administration Valsartan 80 mg 04/05/25 09:00 04/06/25 09:42 Valsartan 80 Mg Tablet PO 80 mg DAILY PRESTON Administration Vitamin D 25 mcg 04/06/25 09:00 04/06/25 09:31 Cholecalciferol (Vitamin D3) 25 Mcg (1,000 Units) Tablet PO 25 mcg DAILY PRESTON Administration Radiology Results: ITS Impressions Head CT 04/04/25 20:47 IMPRESSION: 1. Age-related changes including moderate diffuse volume loss and mild scattered white matter hypoattenuation consistent with chronic small vessel ischemic disease. No acute intracranial process. 2. Right ventricular shunt catheter with tip in the anterior horn of the right lateral ventricle. Chest X-Ray 04/04/25 20:50 IMPRESSION: 1. No acute cardiopulmonary disease. Chest/Abdomen/Pelvis CTA 04/04/25 20:56 IMPRESSION: 1. Normal caliber thoracic and abdominal aorta with no dissection. 2. Cluster of a few 4-6 mm pulmonary nodules at the posterior lingula which most likely infectious/inflammatory in etiology. If the patient is low risk for lung cancer, no follow-up is needed. If the patient is high risk (i.e., history of smoking or asbestos or significant radiation exposure), optional follow-up chest CT could be considered at 12 months. 3. Edematous-appearing wall thickening along the sigmoid colon suspicious for colitis which could be infectious or inflammatory in etiology. There are however numerous diverticula along the sigmoid colon and this could represent scarring related to chronic diverticulitis. 4. Finally physiologic or reactive free fluid in the pelvis. Carotid Doppler Study 04/05/25 12:38 IMPRESSION: 1. <50% stenosis in the right internal carotid artery. 2. 50-69% stenosis in the left internal carotid artery. Labs Labs: Laboratory Results - last 24 hr 04/05/25 04/05/25 04/05/25 11:53 11:54 14:25 WBC RBC Hgb Hct MCV MCH MCHC RDW Plt Count MPV Sodium Potassium Chloride Carbon Dioxide Anion Gap BUN Creatinine Estim Creat Clear Calc Estimated GFR Glucose POC Capillary Glucose 202 H Calcium Magnesium Total Bilirubin AST ALT Alkaline Phosphatase Total Protein Albumin TSH (Reflex) Free T4 Urine Color Yellow Urine Appearance Clear Urine pH 6.0 Ur Specific [place] 1.021 Urine Protein Negative Urine Glucose (UA) Negative Urine Ketones Negative Ur Blood (Man) Negative Urine Nitrate Negative Urine Bilirubin Negative Urine Urobilinogen 0.2 Leukocyte Esterase Rfl 2+ H Urine RBC 0-2 Urine WBC 11-20 H Ur Squamous Epith Cells Occasional Urine Bacteria None seen Urine Casts 0-2 Ur Random Sodium 17 Urine Creatinine 36.2 Stl Occult Blood (IFOB) Positive H C. difficile (PCR) Negative 04/05/25 04/05/25 04/06/25 15:53 21:50 03:41 WBC 8.9 RBC 3.35 L Hgb 9.5 L Hct 29.7 L MCV 88.7 MCH 28.4 MCHC 32.0 RDW 14.3 Plt Count 325 MPV 10.7 H Sodium 137 Potassium 3.2 L Chloride 108 H Carbon Dioxide 17 L Anion Gap 12 BUN 17 Creatinine 1.12 H Estim Creat Clear Calc 40 Estimated GFR 48 L Glucose 177 H POC Capillary Glucose 167 H 194 H Calcium 8.7 Magnesium 1.4 L Total Bilirubin 0.4 AST 60 H ALT 22 Alkaline Phosphatase 69 Total Protein 6.3 Albumin 3.6 TSH (Reflex) 0.362 L Free T4 2.12 Urine Color Urine Appearance Urine pH Ur Specific [place] Urine Protein Urine Glucose (UA) Urine Ketones Ur Blood (Man) Urine Nitrate Urine Bilirubin Urine Urobilinogen Leukocyte Esterase Rfl Urine RBC Urine WBC Ur Squamous Epith Cells Urine Bacteria Urine Casts Ur Random Sodium Urine Creatinine Stl Occult Blood (IFOB) C. difficile (PCR) 04/06/25 07:36 WBC RBC Hgb Hct MCV MCH MCHC RDW Plt Count MPV Sodium Potassium Chloride Carbon Dioxide Anion Gap BUN Creatinine Estim Creat Clear Calc Estimated GFR Glucose POC Capillary Glucose 173 H Calcium Magnesium Total Bilirubin AST ALT Alkaline Phosphatase Total Protein Albumin TSH (Reflex) Free T4 Urine Color Urine Appearance Urine pH Ur Specific [place] Urine Protein Urine Glucose (UA) Urine Ketones Ur Blood (Man) Urine Nitrate Urine Bilirubin Urine Urobilinogen Leukocyte Esterase Rfl Urine RBC Urine WBC Ur Squamous Epith Cells Urine Bacteria Urine Casts Ur Random Sodium Urine Creatinine Stl Occult Blood (IFOB) C. difficile (PCR)
[2025-04-06] MEDS: LOPERAMIDE HCL 2 MG CAPSULE 4 MG PO (11:30)
[2025-04-06 13:40] LABS: Total Triiodothyronine (T3) 0.50 NG/ML (0.82-1.58)
--- NOTE | 2025-04-06 14:20 | P.PNIM_ITS ---
Progress Note: A&P Assessment and Plan (1) ST elevation (STEMI) myocardial infarction: Onset Date: 04/04/25 Qualifiers: Involved coronary artery: unspecified coronary artery Qualified Code(s): I21.3 - ST elevation (STEMI) myocardial infarction of unspecified site Code(s): I21.3 - ST elevation (STEMI) myocardial infarction of unspecified site Status: Acute Assessment and Plan: Patient arrived to the ER on 04/04. Initial EKG showed acute STEMI. Taken for emergent LHC on 04/04. 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 Residual 70% mLAD lesion and 70-80% OM. - troponin: <0.012 -> 23.4 -> 32.7 -> 26.4 - cardiology recommended stage intervention with IFR. Continue aspirin, Plavix, rosuvastatin. Echo with EF 60-65% grade 2 diastolic dysfunction mild MR mild TR no pulmonary hypertension. - telemetry monitoring (2) Black stool: Code(s): K92.1 - Melena Status: Acute Assessment and Plan: - GI consulted >> DDx - motility disorder, malabsorption, IBD or microscopic colitis. less likely C diff given the chronic nature of symptoms. Recommended: reduction in diet soda, drinks 2L daily, may be contributing to diarrhea stool studies outpatient colonoscopy, last attempted 1-2 years ago but could not be completed due to poor prep continue Zosyn which will be switched to p.o. Augmentin Imodium prn if stool studies negative for infectious etiology PPI BID - monitor H/H (3) Diverticulitis: Code(s): K57.92 - Diverticulitis of intestine, part unspecified, without perforation or abscess without bleeding Status: Acute Assessment and Plan: - CTA chest/abd/pelvis: 1. Normal caliber thoracic and abdominal aorta with no dissection. 2. Cluster of a few 4-6 mm pulmonary nodules at the posterior lingula which most likely infectious/inflammatory in etiology. If the patient is low risk for lung cancer, no follow-up is needed. If the patient is high risk (i.e., history of smoking or asbestos or significant radiation exposure), optional follow-up chest CT could be considered at 12 months. 3. Edematous-appearing wall thickening along the sigmoid colon suspicious for colitis which could be infectious or inflammatory in etiology. There are however numerous diverticula along the sigmoid colon and this could represent scarring related to chronic diverticulitis. 4. Finally physiologic or reactive free fluid in the pelvis. - started on Zosyn on 04/05 which will be switched to oral Augmentin - pain medication prn - daily clinical reassessment for improvement Colonoscopy to be planned as an outpatient basis (4) Chronic diarrhea: Code(s): K52.9 - Noninfective gastroenteritis and colitis, unspecified Status: Acute Assessment and Plan: - see GI consult above (5) Elevated serum creatinine: Code(s): R79.89 - Other specified abnormal findings of blood chemistry Status: Acute Assessment and Plan: Creatinine 1.28, BUN 19, GFR 41 upon admission on 04/04. No previous history of CKD known to patient. However she does have risk factors including diabetes and hypertension. May have hypovolemia component as she has had chronic diarrhea for some time. - creatinine improving, 1.01 and GFR 54 on 04/04 Echo reviewed - reviewed imaging, no obstruction or stones on CTA - Elizabeth in place, monitor I&Os - trend renal function and electrolytes (6) Pulmonary nodule: Code(s): R91.1 - Solitary pulmonary nodule Status: Acute Assessment and Plan: CT showed a cluster of a few 4-6 mm pulmonary nodules at the posterior lingula which most likely infectious/inflammatory in etiology. If the patient is low risk for lung cancer, no follow-up is needed. If the patient is high risk (i.e., history of smoking or asbestos or significant radiation exposure), optional follow-up chest CT could be considered at 12 months. She has a 15 pack year tobacco use, quit 1981. - pulmonary consulted >> recommended Recommend patient repeat CT scan in 3-6 months. The patient will follow-up with her PCP in [facility]. I have told the patient to have a CD burnt with the images of her CT scan on that so she can take those to her PCP and or the radiology department where she has her follow- up scan. (7) Diabetes mellitus: Qualifiers: Diabetes mellitus type: type 2 Diabetes mellitus inner tube cutter insulin use: without inner tube cutter use Diabetes mellitus complication status: without complication Qualified Code(s): E11.9 - Type 2 diabetes mellitus without complications Code(s): E11.9 - Type 2 diabetes mellitus without complications Status: Acute Assessment and Plan: - hypoglycemia protocol - POC blood glucose ACHS - not currently on an antidiabetic medication, has previously discussed G LP once with her PCP. Patient had fear of gastroparesis and side effects, had long discussion of risks and benefits of GLP1s. Patient appears open to trying this if indicated. - correct regimen ordered - high dose TIDWM, based off BMI - A1C 7.1% on 04/05/25 (8) Essential hypertension: Code(s): I10 - Essential (primary) hypertension Status: Chronic Assessment and Plan: - continue valsartan 80 mg daily. Hold home p.o. hydralazine, metoprolol, and amlodipine. Patient was started on metoprolol 12.5 mg b.i.d. and has hydralazine IVP ordered. - monitor (9) Hyperlipidemia: Qualifiers: Hyperlipidemia type: unspecified Qualified Code(s): E78.5 - Hyperlipide onelia, unspecified Code(s): E78.5 - Hyperlipidemia, unspecified Status: Chronic Assessment and Plan: - hold home atorvastatin, started on rosuvastatin 20 mg daily. (10) Hypothyroidism: Qualifiers: Hypothyroidism type: unspecified Qualified Code(s): E03.9 - Hypothyroidism, unspecified Code(s): E03.9 - Hypothyroidism, unspecified Status: Chronic Assessment and Plan: - continue levothyroxine -TSH 0.362 normal free T4 (11) Migraine: Qualifiers: Migraine type: unspecified Status migrainosus presence: without status migrainosus Intractability: not intractable Qualified Code(s): G43.909 - Migraine, unspecified, not intractable, without status migrainosus Code(s): G43.909 - Migraine, unspecified, not intractable, without status migrainosus Status: Chronic Assessment and Plan: - continue Keppra Plan Diet: heart healthy GI Prophylaxis: PPI PO BID DVT Prophylaxis: SCDs IV fluids: LR 50 mL/hr x10hrs Lines/Tubes: peripheral IV Code Status: full code Subjective Date/time seen: 04/06/25 14:20 Interval history: No overnight events. Had a episode of watery diarrhea this a.m.. Denies any chest pain or shortness of breath. Has history of chronic diarrhea. Review of Systems Review of Systems: All systems reviewed & are unremarkable except as noted in HPI and below Exam Narrative: GENERAL: The patient is well developed, not in acute distress HEENT: Nonicteric sclerae, PERRLA, EOMI. Oropharynx clear. Moist mucous membranes. Conjunctivae appear well perfused. CHEST: Chest wall is nontender. HEART: Regular rate and rhythm without murmur, rubs, or gallops LUNGS: Clear to auscultation bilaterally. no respiratory distress ABDOMEN: Soft, positive bowel sounds, non-tender, no organomegaly. SKIN: No rash, no excessive bruising, petechiae, or purpura. NEUROLOGIC: Cranial nerves II-XII intact, alert and oriented x 3, no gross motor deficits EXTREMITIES: no edema, cyanosis or clubbing Objective Data Vital Signs Vital Signs: Vital Signs - 24 hr 04/05/25 16:00 04/05/25 16:00 04/05/25 16:00 Temperature 98.2 F Pulse Rate 70 71 74 Pulse Rate [Right Pedal (Dorsalis Pedis) Palpation] Respiratory Rate 12 18 Blood Pressure 151/64 H Pulse Oximetry 97 98 Oxygen Delivery Room Air 04/05/25 18:00 04/05/25 20:00 04/05/25 20:00 Temperature 98.1 F Pulse Rate 75 72 Pulse Rate [Right Pedal (Dorsalis Pedis) Palpation] Respiratory Rate 17 Blood Pressure 156/130 H Pulse Oximetry 99 99 Oxygen Delivery Room Air 04/05/25 20:00 04/05/25 20:36 04/05/25 22:00 Temperature Pulse Rate 74 67 66 Pulse Rate [Right Pedal (Dorsalis Pedis) Palpation] Respiratory Rate Blood Pressure Pulse Oximetry Oxygen Delivery 04/06/25 00:00 04/06/25 00:00 04/06/25 00:00 Temperature 97.9 F Pulse Rate 69 70 Pulse Rate [Right Pedal (Dorsalis Pedis) Palpation] Respiratory Rate 19 Blood Pressure 142/114 H Pulse Oximetry 95 95 Oxygen Delivery Room Air 04/06/25 02:00 04/06/25 04:00 04/06/25 04:00 Temperature 98.0 F Pulse Rate 75 71 Pulse Rate [Right Pedal (Dorsalis Pedis) Palpation] Respiratory Rate 20 Blood Pressure 136/62 Pulse Oximetry 95 96 Oxygen Delivery Room Air 04/06/25 04:00 04/06/25 06:00 04/06/25 08:00 Temperature 97.8 F Pulse Rate 71 71 69 Pulse Rate [Right Pedal (Dorsalis Pedis) Palpation] 69 Respiratory Rate 8 L Blood Pressure 126/65 Pulse Oximetry 94 Oxygen Delivery 04/06/25 08:00 04/06/25 08:00 04/06/25 08:00 Temperature 97.8 F Pulse Rate 70 69 Pulse Rate [Right Pedal (Dorsalis Pedis) Palpation] Respiratory Rate 8 L Blood Pressure 126/65 Pulse Oximetry 96 94 Oxygen Delivery Room Air 04/06/25 09:31 04/06/25 10:00 04/06/25 12:00 Temperature Pulse Rate 79 84 69 Pulse Rate [Right Pedal (Dorsalis Pedis) Palpation] Respiratory Rate Blood Pressure Pulse Oximetry Oxygen Delivery Intake/Output Intake/Output: Intake & Output 04/03/25 04/04/25 04/05/25 04/06/25 23:59 23:59 23:59 23:59 Intake Total 2110 350 Output Total 900 800 Balance 1210 -450 Meds/Results Medications: Active Medications Generic Name Dose Route Start Last Admin Trade Name Freq PRN Reason Stop Dose Admin Acetaminophen 650 mg 04/05/25 20:30 04/06/25 09:30 Acetaminophen 325 Mg Tablet PO 650 mg Q4H PRN Administration Mild Pain (1-3) or Fever Amoxicillin/Clavulanate Potassium 1 tablet 04/06/25 14:00 Amoxicillin/Clavulanate K 875-125 Mg Tab PO 04/11/25 21:01 Q12HR PRESTON Aspirin 81 mg 04/05/25 09:00 04/06/25 09:31 Aspirin 81 Mg Enteric Tablet PO 81 mg QAM PRESTON Administration Clopidogrel Bisulfate 75 mg 04/05/25 09:00 04/06/25 09:30 Clopidogrel Bisulfate 75 Mg Tablet PO 75 mg QAM PRESTON Administration Dextrose 12.5 gm 04/05/25 07:31 Dextrose 50% 25 Gm/50 Ml Syringe IV PUSH PRN PRN Hypoglycemia Protocol Glucagon 1 mg 04/05/25 07:31 Glucagon For Inj 1 Mg Vial IM PRN PRN Hypoglycemia Protocol Glucose 15 gm 04/05/25 07:31 Glucose Oral Gel 15 Gm Of Glucse In 37.5 Gm Tube PO PRN PRN Hypoglycemia Protocol Hydralazine HCl 20 mg 04/05/25 09:27 04/05/25 09:37 Hydralazine Hcl 20 Mg/Ml Vial IV PUSH 20 mg Q4H PRN Administration SBP >160 Dextrose 1,000 mls @ 100 mls/hr 04/05/25 07:31 Dextrose 5% 1,000 Ml IVPB PRN PRN Hypoglycemia Protocol Insulin Aspart 4 - 8 units 04/05/25 17:00 04/06/25 11:54 Insulin Aspart (*Bkc) 100 Units/Ml SUB-Q Not Given TIDWM PRESTON Protocol Levetiracetam 500 mg 04/05/25 09:00 04/06/25 09:30 Levetiracetam 500 Mg Tablet PO 500 mg Q12HR PRESTON Administration Levothyroxine Sodium 150 mcg 04/06/25 06:30 04/06/25 05:46 Levothyroxine Sodium 150 Mcg Tablet PO 150 mcg DAILY@0630 PRESTON Administration Loperamide HCl 4 mg 04/06/25 11:27 04/06/25 11:30 Loperamide Hcl 2 Mg Capsule PO 4 mg PRN PRN Administration Diarrhea Lorazepam 2 mg 04/05/25 13:35 04/05/25 20:36 Lorazepam (*Crx) 1 Mg Tablet PO 2 mg HS PRN Administration Anxiety Melatonin 10 mg 04/05/25 21:00 04/05/25 20:37 Melatonin 5 Mg Tablet PO 10 mg HS PRESTON Administration Metoprolol Tartrate 25 mg 04/06/25 09:00 04/06/25 09:31 Metoprolol Tartrate 25 Mg Tablet PO 25 mg Q12HR PRESTON Administration Pantoprazole Sodium 40 mg 04/05/25 09:00 04/06/25 09:30 Pantoprazole 40 Mg Tablet PO 40 mg Q12HR PRESTON Administration Paroxetine HCl 10 mg 04/06/25 09:00 04/06/25 09:31 Paroxetine 10 Mg Tablet PO 10 mg DAILY PRESTON Administration Perflutren Lipid Microsphere 0 ml 04/04/25 21:51 Perflutren Lipid Microspheres 1.5 Ml Vial Diluted To 10 Ml Total Volume IV PUSH 04/07/25 21:53 ONCE PRN adequate visualization Protocol Rosuvastatin Calcium 20 mg 04/05/25 09:00 04/06/25 09:31 Rosuvastatin 20 Mg Tablet PO 20 mg QAM PRESTON Administration Valsartan 80 mg 04/05/25 09:00 04/06/25 09:42 Valsartan 80 Mg Tablet PO 80 mg DAILY PRESTON Administration Vitamin D 25 mcg 04/06/25 09:00 04/06/25 09:31 Cholecalciferol (Vitamin D3) 25 Mcg (1,000 Units) Tablet PO 25 mcg DAILY PRESTON Administration Radiology Results: ITS Impressions Head CT 04/04/25 20:47 IMPRESSION: 1. Age-related changes including moderate diffuse volume loss and mild scattered white matter hypoattenuation consistent with chronic small vessel ischemic disease. No acute intracranial process. 2. Right ventricular shunt catheter with tip in the anterior horn of the right lateral ventricle. Chest X-Ray 04/04/25 20:50 IMPRESSION: 1. No acute cardiopulmonary disease. Chest/Abdomen/Pelvis CTA 04/04/25 20:56 IMPRESSION: 1. Normal caliber thoracic and abdominal aorta with no dissection. 2. Cluster of a few 4-6 mm pulmonary nodules at the posterior lingula which most likely infectious/inflammatory in etiology. If the patient is low risk for lung cancer, no follow-up is needed. If the patient is high risk (i.e., history of smoking or asbestos or significant radiation exposure), optional follow-up chest CT could be considered at 12 months. 3. Edematous-appearing wall thickening along the sigmoid colon suspicious for colitis which could be infectious or inflammatory in etiology. There are however numerous diverticula along the sigmoid colon and this could represent scarring related to chronic diverticulitis. 4. Finally physiologic or reactive free fluid in the pelvis. Carotid Doppler Study 04/05/25 12:38 IMPRESSION: 1. <50% stenosis in the right internal carotid artery. 2. 50-69% stenosis in the left internal carotid artery. Labs Labs: Laboratory Results - last 24 hr 04/05/25 04/05/25 04/05/25 14:25 15:53 21:50 WBC RBC Hgb Hct MCV MCH MCHC RDW Plt Count MPV Sodium Potassium Chloride Carbon Dioxide Anion Gap BUN Creatinine Estim Creat Clear Calc Estimated GFR Glucose POC Capillary Glucose 167 H 194 H Calcium Magnesium Total Bilirubin AST ALT Alkaline Phosphatase Total Protein Albumin TSH (Reflex) Free T4 Total T3 Stl Occult Blood (IFOB) Positive H C. difficile (PCR) Negative 04/06/25 04/06/25 04/06/25 03:41 07:36 11:49 WBC 8.9 RBC 3.35 L Hgb 9.5 L Hct 29.7 L MCV 88.7 MCH 28.4 MCHC 32.0 RDW 14.3 Plt Count 325 MPV 10.7 H Sodium 137 Potassium 3.2 L Chloride 108 H Carbon Dioxide 17 L Anion Gap 12 BUN 17 Creatinine 1.12 H Estim Creat Clear Calc 40 Estimated GFR 48 L Glucose 177 H POC Capillary Glucose 173 H 193 H Calcium 8.7 Magnesium 1.4 L Total Bilirubin 0.4 AST 60 H ALT 22 Alkaline Phosphatase 69 Total Protein 6.3 Albumin 3.6 TSH (Reflex) 0.362 L Free T4 2.12 Total T3 0.50 L Stl Occult Blood (IFOB) C. difficile (PCR)
[2025-04-06] MEDS: MELATONIN 5 MG TABLET 10 MG PO (21:04)
[2025-04-06] MEDS: LORazepam (*CRX) 1 MG TABLET 2 MG PO (21:16)
[2025-04-07] VITALS: BP 132/66; PULSE 62; RESP 13; O2SAT 97
[2025-04-07 03:54] LABS: Hematocrit 28.7 % (37.0-47.0); Hemoglobin 9.0 g/dL (12.0-15.0); Mean Corpuscular HGB Conc 31.4 g/dl (32-36); Mean Corpuscular Hemoglobin 28.0 pg (26-34); Mean Corpuscular Volume 89.1 fl (80-100); Platelet Count Result 290 k/mm3 (150-375); Red Blood Count 3.22 M/mm3 (4.2-5.4); White Blood Count 8.1 K/mm3 (4.5-10.0)
[2025-04-07 04:00] VITALS: BP 133/57; PULSE 64; RESP 16; TEMP 36.6; O2SAT 97
[2025-04-07 04:08] LABS: Alanine Aminotransferase 17 U/L (6-35); Albumin Level 3.4 g/dL (3.5-5.1); Alkaline Phosphatase 62 U/L (38-126); Anion Gap 8 mmol/L (4-12); Aspartate Amino Transferase 34 U/L (14-36); Bilirubin,Total 0.2 mg/dL (0.2-1.3); Blood Urea Nitrogen 11 mg/dL (7-17); Calcium 8.6 mg/dL (8.4-10.2); Carbon Dioxide 21 mmol/L (22-30); Chloride 107 mmol/L (98-107); Estimated CRCL calculation 49 ml/min; Estimated Glomerular Filt Rate 59; Glucose 143 mg/dL (65-110); Magnesium 1.7 mg/dL (1.6-2.3); Potassium 3.6 mmol/L (3.4-5.0); Sodium 136 mmol/L (137-145); Total Protein 5.9 g/dL (6.3-8.2)
[2025-04-07 08:00] VITALS: BP 171/67; PULSE 76; PULSE 89; RESP 10; TEMP 36.5; O2SAT 99
[2025-04-07] MEDS: CLOPIDOGREL BISULFATE 75 MG TABLET PO (08:51)
[2025-04-07] MEDS: ASPIRIN 81 MG ENTERIC TABLET PO (08:51)
[2025-04-07] MEDS: LEVOTHYROXINE SODIUM 150 MCG TABLET PO (08:51)
[2025-04-07 08:52] VITALS: PULSE 89
[2025-04-07] MEDS: PANTOPRAZOLE 40 MG TABLET PO (08:52)
[2025-04-07] MEDS: METOPROLOL TARTRATE 25 MG TABLET PO (08:52)
[2025-04-07] MEDS: ROSUVASTATIN 20 MG TABLET PO (09:39)
[2025-04-07] MEDS: CHOLECALCIFEROL (VITAMIN D3) 25 MCG (1,000 UNITS) TABLET PO (09:39)
[2025-04-07] MEDS: VALSARTAN 80 MG TABLET PO (09:39)
[2025-04-07] MEDS: LOPERAMIDE HCL 2 MG CAPSULE 4 MG PO (11:08)
--- NOTE | 2025-04-07 11:19 | PM.PNCARD ---
Progress Note: A&P Assessment and Plan (1) ST elevation (STEMI) myocardial infarction: Onset Date: 04/04/25 Qualifiers: Involved coronary artery: unspecified coronary artery Qualified Code(s): I21.3 - ST elevation (STEMI) myocardial infarction of unspecified site Code(s): I21.3 - ST elevation (STEMI) myocardial infarction of unspecified site Status: Acute (2) Syncope: Qualifiers: Syncope type: unspecified Qualified Code(s): R55 - Syncope and collapse Code(s): R55 - Syncope and collapse Status: Acute (3) Essential hypertension: Code(s): I10 - Essential (primary) hypertension Status: Chronic (4) Hyperlipidemia: Qualifiers: Hyperlipidemia type: unspecified Qualified Code(s): E78.5 - Hyperlipidemia, unspecified Code(s): E78.5 - Hyperlipidemia, unspecified Status: Chronic (5) Colitis: Code(s): K52.9 - Noninfective gastroenteritis and colitis, unspecified Status: Acute (6) Diverticulitis: Code(s): K57.92 - Diverticulitis of intestine, part unspecified, without perforation or abscess without bleeding Status: Acute Plan STEMI: patient is s/p emergent LHC with totally occluded RCA that is s/p thrombectomy and TERESA placement. She has residual 70% mLAD lesion and 70-80% OM. Staged intervention with IFR will be arranged. Currently patient is pain free. Will continue aspirin and plavix at this time. Continue rosuvastatin. ECHO done and demonstrated EF of 60-65% with mild MR and TR. Syncope: Likely secondary to acute inferior wall myocardial infarction which can cause hypotension bradycardia syndrome. Unclear if d/t arrhythmia versus vasovagal. Will monitor on tele no arrhythmia overnight. echo noted above. Carotid duplex showed 50-69% LICA and <50% or HELGA. Can consider stable rhythm at this time. Chronic diarrhea with dark stools: CTA abdomen pelvis does suggest colitis. GI following and recommending dietary changes and OP follow up. H&H are stable. FOBT +, but H&H stable and in setting of chronic diarrhea Diverticulitis: on IV antibiotics as per primary team. No pain at this time. Possible transition to oral? Hypertension: Blood pressure somewhat better this am. continue present med regimen and monitor. Hyperlipidemia: on rosuvastatin. LDL of 44 Diabetes Mellitus: will consult hospitalist for glycemic control Carotid stenosis. LICA of 50-69%, will follow as OP. Continue aspirin, plavix and rosuvastatin Communicating Hydrocephalus-with history of shunt Obesity: Weight loss encouraged Patient appears to be stable from cardiac viewpoint. Okay to transfer patient to step-down unit. Subjective Date/time seen: 04/07/25 11:19 Interval history: Review of HPI; Patient is a 75-year-old female admitted via emergency room on 04/04/2025 with altered mental status and acute ST segment elevation myocardial infarction Pred. Patient had emergent cardiac catheterization with total occlusion of right coronary artery. Status post thrombectomy and drug-eluting stent placed on 04/04/2025. Patient also has LAD disease which is 70-80% and is plan is to do that later on as staged procedure. Patient has syncope which is possibly related to acute the occluded right coronary artery with hypertension bradycardia syndrome. No significant carotid stenosis noted. Patient was noted to have dark stools since the angioplasty. Patient does have chronic diarrhea with diverticulosis of. H&H is stable. History of diverticulitis on IV antibiotics. History of hypertension and hyperlipidemia and type 2 diabetes. Subjective: Patient was examined at the bedside. Patient is awake alert and appears comfortable without shortness of breath or chest pain. Right groin at the site of angiogram is without hematoma and good femoral pulses. Patient had explosive diarrhea yesterday but somewhat improved today. No complaints of abdominal pain, nausea vomiting. No complaints of chest pain or shortness of breath. Stable angiogram site from the right groin. Review of Systems Review of Systems: Twelve point review of system was completed. Pertinent positive and negative findings per HPI. Cardiovascular negative for chest pain, shortness of breath or palpitations. Pulmonary negative for cough, shortness of breath or hemoptysis. Gastrointestinal positive for diarrhea. Negative for abdominal pain nausea or vomiting. Neurovascular is negative. No focal neurological abnormalities. Exam Narrative: Patient was examined at the bedside. Patient is awake alert appears comfortable. Patient weighs 83.6 kg with BMI of 32.6. Head and neck examination is unremarkable. Head is atraumatic. Sclerae is nonicteric. ENT examination is negative. Lungs are clear auscultation percussion. Heart sounds reveal normal S1-S2. No significant murmurs S3-S4 noted. Abdomen is obese without any distention or localized tenderness. Bowel sounds are present. There is no hepatosplenomegaly. Extremities has no significant leg edema at this time. Neurological examination is intact. Objective Data Vital Signs Vital Signs: Vital Signs - 24 hr 04/06/25 12:00 04/06/25 16:00 04/06/25 16:00 Temperature 36.8 C Pulse Rate 69 75 73 Respiratory Rate 17 Blood Pressure 168/77 H Pulse Oximetry 99 Oxygen Delivery 04/06/25 20:00 04/06/25 20:00 04/06/25 21:03 Temperature 36.7 C Pulse Rate 64 64 82 Respiratory Rate 12 Blood Pressure 156/62 H Pulse Oximetry 100 Oxygen Delivery 04/07/25 00:00 04/07/25 00:00 04/07/25 04:00 Temperature 36.6 C Pulse Rate 62 62 64 Respiratory Rate 13 16 Blood Pressure 132/66 133/57 L Pulse Oximetry 97 97 Oxygen Delivery 04/07/25 04:00 04/07/25 08:00 04/07/25 08:00 Temperature 36.5 C Pulse Rate 64 76 76 Respiratory Rate 10 L 10 L Blood Pressure 171/67 H Pulse Oximetry 99 99 Oxygen Delivery Room Air 04/07/25 08:00 04/07/25 08:52 04/07/25 10:32 Temperature Pulse Rate 89 89 Respiratory Rate Blood Pressure Pulse Oximetry Oxygen Delivery Room Air Intake/Output Intake/Output: Intake & Output 04/04/25 04/05/25 04/06/25 04/07/25 23:59 23:59 23:59 23:59 Intake Total 2110 870 600 Output Total 900 800 800 Balance 1210 70 -200 Meds/Results Medications: Active Medications Generic Name Dose Route Start Last Admin Trade Name Freq PRN Reason Stop Dose Admin Acetaminophen 650 mg 04/05/25 20:30 04/06/25 21:15 Acetaminophen 325 Mg Tablet PO 650 mg Q4H PRN Administration Mild Pain (1-3) or Fever Amoxicillin/Clavulanate Potassium 1 tablet 04/06/25 14:00 04/07/25 08:51 Amoxicillin/Clavulanate K 875-125 Mg Tab PO 04/11/25 21:01 1 tablet Q12HR PRESTON Administration Aspirin 81 mg 04/05/25 09:00 04/07/25 08:51 Aspirin 81 Mg Enteric Tablet PO 81 mg QAM PRESTON Administration Clopidogrel Bisulfate 75 mg 04/05/25 09:00 04/07/25 08:51 Clopidogrel Bisulfate 75 Mg Tablet PO 75 mg QAM PRESTON Administration Dextrose 12.5 gm 04/05/25 07:31 Dextrose 50% 25 Gm/50 Ml Syringe IV PUSH PRN PRN Hypoglycemia Protocol Glucagon 1 mg 04/05/25 07:31 Glucagon For Inj 1 Mg Vial IM PRN PRN Hypoglycemia Protocol Glucose 15 gm 04/05/25 07:31 Glucose Oral Gel 15 Gm Of Glucse In 37.5 Gm Tube PO PRN PRN Hypoglycemia Protocol Hydralazine HCl 20 mg 04/05/25 09:27 04/06/25 16:09 Hydralazine Hcl 20 Mg/Ml Vial IV PUSH 20 mg Q4H PRN Administration SBP >160 Dextrose 1,000 mls @ 100 mls/hr 04/05/25 07:31 Dextrose 5% 1,000 Ml IVPB PRN PRN Hypoglycemia Protocol Insulin Aspart 4 - 8 units 04/05/25 17:00 04/07/25 07:50 Insulin Aspart (*Bkc) 100 Units/Ml SUB-Q Not Given TIDWM PRESTON Protocol Levetiracetam 500 mg 04/05/25 09:00 04/07/25 08:52 Levetiracetam 500 Mg Tablet PO 500 mg Q12HR PRESTON Administration Levothyroxine Sodium 150 mcg 04/06/25 06:30 04/07/25 08:51 Levothyroxine Sodium 150 Mcg Tablet PO 150 mcg DAILY@0630 PRESTON Administration Loperamide HCl 4 mg 04/06/25 11:27 04/07/25 11:08 Loperamide Hcl 2 Mg Capsule PO 4 mg PRN PRN Administration Diarrhea Lorazepam 2 mg 04/05/25 13:35 04/06/25 21:16 Lorazepam (*Crx) 1 Mg Tablet PO 2 mg HS PRN Administration Anxiety Melatonin 10 mg 04/05/25 21:00 04/06/25 21:04 Melatonin 5 Mg Tablet PO 10 mg HS PRESTON Administration Metoprolol Tartrate 25 mg 04/06/25 09:00 04/07/25 08:52 Metoprolol Tartrate 25 Mg Tablet PO 25 mg Q12HR PRESTON Administration Pantoprazole Sodium 40 mg 04/05/25 09:00 04/07/25 08:52 Pantoprazole 40 Mg Tablet PO 40 mg Q12HR PRESTON Administration Paroxetine HCl 10 mg 04/06/25 09:00 04/07/25 08:52 Paroxetine 10 Mg Tablet PO 10 mg DAILY PRESTON Administration Perflutren Lipid Microsphere 0 ml 04/04/25 21:51 Perflutren Lipid Microspheres 1.5 Ml Vial Diluted To 10 Ml Total Volume IV PUSH 04/07/25 21:53 ONCE PRN adequate visualization Protocol Rosuvastatin Calcium 20 mg 04/05/25 09:00 04/07/25 09:39 Rosuvastatin 20 Mg Tablet PO 20 mg QAM PRESTON Administration Valsartan 80 mg 04/05/25 09:00 04/07/25 09:39 Valsartan 80 Mg Tablet PO 80 mg DAILY PRESTON Administration Vitamin D 25 mcg 04/06/25 09:00 04/07/25 09:39 Cholecalciferol (Vitamin D3) 25 Mcg (1,000 Units) Tablet PO 25 mcg DAILY PRESTON Administration Radiology Results: ITS Impressions Head CT 04/04/25 20:47 IMPRESSION: 1. Age-related changes including moderate diffuse volume loss and mild scattered white matter hypoattenuation consistent with chronic small vessel ischemic disease. No acute intracranial process. 2. Right ventricular shunt catheter with tip in the anterior horn of the right lateral ventricle. Chest X-Ray 04/04/25 20:50 IMPRESSION: 1. No acute cardiopulmonary disease. Chest/Abdomen/Pelvis CTA 04/04/25 20:56 IMPRESSION: 1. Normal caliber thoracic and abdominal aorta with no dissection. 2. Cluster of a few 4-6 mm pulmonary nodules at the posterior lingula which most likely infectious/inflammatory in etiology. If the patient is low risk for lung cancer, no follow-up is needed. If the patient is high risk (i.e., history of smoking or asbestos or significant radiation exposure), optional follow-up chest CT could be considered at 12 months. 3. Edematous-appearing wall thickening along the sigmoid colon suspicious for colitis which could be infectious or inflammatory in etiology. There are however numerous diverticula along the sigmoid colon and this could represent scarring related to chronic diverticulitis. 4. Finally physiologic or reactive free fluid in the pelvis. Carotid Doppler Study 04/05/25 12:38 IMPRESSION: 1. <50% stenosis in the right internal carotid artery. 2. 50-69% stenosis in the left internal carotid artery. Labs Labs: Laboratory Results - last 24 hr 04/06/25 04/06/25 04/06/25 03:41 11:49 15:52 WBC RBC Hgb Hct MCV MCH MCHC RDW Plt Count MPV Sodium Potassium Chloride Carbon Dioxide Anion Gap BUN Creatinine Estim Creat Clear Calc Estimated GFR Glucose POC Capillary Glucose 193 H 125 H Calcium Magnesium Total Bilirubin AST ALT Alkaline Phosphatase Total Protein Albumin Total T3 0.50 L 04/06/25 04/07/25 04/07/25 21:03 03:47 07:27 WBC 8.1 RBC 3.22 L Hgb 9.0 L Hct 28.7 L MCV 89.1 MCH 28.0 MCHC 31.4 L RDW 14.6 H Plt Count 290 MPV 10.5 H Sodium 136 L Potassium 3.6 Chloride 107 Carbon Dioxide 21 L Anion Gap 8 BUN 11 D Creatinine 0.93 Estim Creat Clear Calc 49 Estimated GFR 59 Glucose 143 H POC Capillary Glucose 138 H 86 Calcium 8.6 Magnesium 1.7 Total Bilirubin 0.2 AST 34 ALT 17 Alkaline Phosphatase 62 Total Protein 5.9 L Albumin 3.4 L Total T3 04/07/25 11:15 WBC RBC Hgb Hct MCV MCH MCHC RDW Plt Count MPV Sodium Potassium Chloride Carbon Dioxide Anion Gap BUN Creatinine Estim Creat Clear Calc Estimated GFR Glucose POC Capillary Glucose 173 H Calcium Magnesium Total Bilirubin AST ALT Alkaline Phosphatase Total Protein Albumin Total T3
[2025-04-07 12:00] VITALS: PULSE 68
--- NOTE | 2025-04-07 13:56 | P.DS_ITS ---
DS: Admitting Diagnosis Discharge Date 04/07/2025 Admitting Diagnosis Acute inferior wall myocardial infarction. Syncope Hypertension Hyperlipidemia DS: Discharge Diagnosis Discharge Diagnosis (1) ST elevation (STEMI) myocardial infarction: Onset Date: 04/04/25 Qualifiers: Involved coronary artery: unspecified coronary artery Qualified Code(s): I21.3 - ST elevation (STEMI) myocardial infarction of unspecified site Code(s): I21.3 - ST elevation (STEMI) myocardial infarction of unspecified site Status: Acute (2) Syncope: Qualifiers: Syncope type: unspecified Qualified Code(s): R55 - Syncope and collapse Code(s): R55 - Syncope and collapse Status: Acute (3) Essential hypertension: Code(s): I10 - Essential (primary) hypertension Status: Chronic (4) Hyperlipidemia: Qualifiers: Hyperlipidemia type: unspecified Qualified Code(s): E78.5 - Hyperlipidemia, unspecified Code(s): E78.5 - Hyperlipidemia, unspecified Status: Chronic DS: Summary Hospital Course Reason for hospitalization: Acute ST segment elevation myocardial infarction and syncope. Hospital Course: STEMI: patient is s/p emergent LHC with totally occluded RCA that is s/p thrombectomy and TERESA placement. She has residual 70% mLAD lesion and 70-80% OM. Staged intervention with IFR will be arranged. Currently patient is pain free. Will continue aspirin and plavix at this time. Continue rosuvastatin. ECHO done and demonstrated EF of 60-65% with mild MR and TR. Patient was stable post angioplasty and discharged home in stable condition on 04/07/2025. Syncope: Likely secondary to acute inferior wall myocardial infarction which can cause hypotension bradycardia syndrome. Unclear if d/t arrhythmia versus vasovagal. Will monitor on tele no arrhythmia overnight. echo noted above. Carotid duplex showed 50-69% LICA and <50% or HELGA. Can consider stable rhythm at this time. -patient remained stable during hospitalization and had no further problems with syncope. Chronic diarrhea with dark stools: CTA abdomen pelvis does suggest colitis. GI following and recommending dietary changes and OP follow up. H&H are stable. FOBT +, but H&H stable and in setting of chronic diarrhea Diverticulitis: on IV antibiotics as per primary team. No pain at this time. Possible transition to oral? Hypertension: Blood pressure somewhat better this am. continue present med regimen and monitor. Blood pressure is somewhat elevated today at 171/67 mm of mercury. Amlodipine 10 mg at home was resumed. Hyperlipidemia: on rosuvastatin. LDL of 44 Continue with Crestor 20 mg daily. Diabetes Mellitus: will consult hospitalist for glycemic control Carotid stenosis. LICA of 50-69%, will follow as OP. Continue aspirin, plavix and rosuvastatin Communicating Hydrocephalus-with history of shunt Obesity: Weight loss encouraged Time spent discussing smoking cessation with patient: 3 to 10 minutes Status at Discharge Cognitive/behavioral status at discharge: Normal cognitive and behavioral status. Functional status at discharge: independent ambulation Overall status at discharge: patient is back to baseline Time Spent with Patient Time attestation: Total time spent providing and/or coordinating discharge services: Time spent: Less than 30 minutes Exam Narrative: Patient was examined at the bedside. Patient is awake alert appears comfortable. Patient weighs 83.6 kg with BMI of 32.6. Head and neck examination is unremarkable. Head is atraumatic. Sclerae is nonicteric. ENT examination is negative. Lungs are clear auscultation percussion. Heart sounds reveal normal S1-S2. No significant murmurs S3-S4 noted. Abdomen is obese without any distention or localized tenderness. Bowel sounds are present. There is no hepatosplenomegaly. Extremities has no significant leg edema at this time. Neurological examination is intact. DS: Data Data Completed and Pending Labs on day of discharge: Labs from last 24 hours 04/07/25 04/07/25 04/07/25 11:15 07:27 03:47 WBC 8.1 RBC 3.22 L Hgb 9.0 L Hct 28.7 L MCV 89.1 MCH 28.0 MCHC 31.4 L RDW 14.6 H Plt Count 290 MPV 10.5 H Sodium 136 L Potassium 3.6 Chloride 107 Carbon Dioxide 21 L Anion Gap 8 BUN 11 D Creatinine 0.93 Estim Creat Clear Calc 49 Estimated GFR 59 Glucose 143 H POC Capillary Glucose 173 H 86 Calcium 8.6 Magnesium 1.7 Total Bilirubin 0.2 AST 34 ALT 17 Alkaline Phosphatase 62 Total Protein 5.9 L Albumin 3.4 L Miscellaneous Test 04/06/25 04/06/25 04/05/25 21:03 15:52 14:25 WBC RBC Hgb Hct MCV MCH MCHC RDW Plt Count MPV Sodium Potassium Chloride Carbon Dioxide Anion Gap BUN Creatinine Estim Creat Clear Calc Estimated GFR Glucose POC Capillary Glucose 138 H 125 H Calcium Magnesium Total Bilirubin AST ALT Alkaline Phosphatase Total Protein Albumin Miscellaneous Test Pending Preliminary micro results at discharge 04/05/25 08:53 Blood Culture - Preliminary Blood 04/05/25 08:40 Blood Culture - Preliminary Blood Procedures/Treatments: Cardiac Cath Procedure Note Date of procedure:: 04/04/25 Performing physician:: Dav Henry MD Indication:: STEMI Procedure Procedure performed:: C and Coronary angiogram PCI to acute total occlusion of RCA with one TERESA Sedation/Medication given:: Patient did not receive sedation and only treated with local anesthetic lidocaine Access site:: Right femoral access was draped and prepped in a sterile fashion Access site was obtained using modified Seldinger technique and 6 Argentine sheath was inserted without difficulty Estimated blood loss:: Less than 50 mL Procedure note:: Coronary angiogram was performed using JL4 for the left coronary and a JR4 for right coronary. Aortic valve was crossed using a JR4 and LVEDP was measured. No LV-gram was performed. Coronary artery intervention to the right RCA Anticoagulation was heparin with a target ACT more than 250 JR4 guide was used the lesion was crossed without difficulty using a run-through wire. Aspiration thrombectomy was done using penumbra. No clot was aspirated. But flow was established to the vessel Balloon angioplasty was done using 2.5 balloon followed by stenting using lonny 3.5 x 12 @ 12 ZULMA Preintervention angiogram, acute total occlusion distal RCA, class B, REUBEN 0 Final angiogram post intervention no residual stenosis, and REUBEN 3 flow established No perforation dissection or embolization Findings:: Left main normal LAD diffuse mild disease and mid LAD 70% stenosis Left circumflex gives rise to OM and continue is intermediate size vessel with diffuse 70-80% stenosis. RCA with acute distal total occlusion; PCI was performed to the RCA as detailed above using aspiration thrombectomy and drug eluting stent lonny 3.5 x 12 Angiogram for the bladder showed possible mass effect on the bladder Conclusion:: Successful PCI to acute distal RCA acute total occlusion using 1 drug-eluting stent lonny 3.5 x 12 Residual moderate disease in the LAD and moderate to severe disease in the intermediate size distal left circumflex Abnormal contour of the bladder and a final picture Assessment and Plan Assessment and plan (1) ST elevation (STEMI) myocardial infarction: Code(s): I21.3 - ST elevation (STEMI) myocardial infarction of unspecified site Status: Acute Plan Aspirin Plavix Transthoracic echocardiogram Staged IFR to the LAD CT abdomen Imaging Radiologist's impression: ITS Impressions Head CT 04/04/25 20:47 IMPRESSION: 1. Age-related changes including moderate diffuse volume loss and mild scattered white matter hypoattenuation consistent with chronic small vessel ischemic disease. No acute intracranial process. 2. Right ventricular shunt catheter with tip in the anterior horn of the right lateral ventricle. Chest X-Ray 04/04/25 20:50 IMPRESSION: 1. No acute cardiopulmonary disease. Chest/Abdomen/Pelvis CTA 04/04/25 20:56 IMPRESSION: 1. Normal caliber thoracic and abdominal aorta with no dissection. 2. Cluster of a few 4-6 mm pulmonary nodules at the posterior lingula which most likely infectious/inflammatory in etiology. If the patient is low risk for lung cancer, no follow-up is needed. If the patient is high risk (i.e., history of smoking or asbestos or significant radiation exposure), optional follow-up chest CT could be considered at 12 months. 3. Edematous-appearing wall thickening along the sigmoid colon suspicious for colitis which could be infectious or inflammatory in etiology. There are however numerous diverticula along the sigmoid colon and this could represent scarring related to chronic diverticulitis. 4. Finally physiologic or reactive free fluid in the pelvis. Carotid Doppler Study 04/05/25 12:38 IMPRESSION: 1. <50% stenosis in the right internal carotid artery. 2. 50-69% stenosis in the left internal carotid artery. Discharge Plan Discharge Attending physician on discharge: Pierre Jernigan Consulting providers: Lamont Arcos; Kapil Andre; Kevin Blank; Violeta Oliveira Discharging Clinician: Pierre Jernigan Anticipated Discharge Date/Time: 04/07/25 13:43 Patient Disposition: Home Activity: as tolerated Diet: heart healthy Discharge Instructions: [facility] [address] [place] [address] DISCHARGE INSTRUCTIONS - POST PCI Activity 1. No driving for 2 days post procedure 2. No lifting, pushing or pulling more than 10 pounds for 1 week. 3. No strenuous exercise or activity (including sexual activity) until you are released to do so. 4. May shower but no tub baths or swimming pool for 1 week. Avoid commercial hot tubs. They are too hot. Medications DO NOT STOP YOUR MEDICATIONS ONLY YOUR SURGICAL SUPERVISOR CAN STOP THE FOLLOWING MEDICATIONS - PLEASE CALL THE OFFICE WITH QUESTIONS. *Aspirin *Ticagrelor (Brilinta) *Atorvastatin *Lisinopril or ARB *Metoprolol tartrate or succinate *Clopidogrel (Plavix) *Prasugrel (Effient) Important Reminders 1. Keep your stent card in your wallet at all times 2. Follow a heart healthy diet paying extra attention to cholesterol and fats. 3. Stay hydrated. 4. If you have chest pain unrelieved by rest or nitroglycerin (if prescribed) call 911 immediately. *For any other questions please call the office at [phone]. Office hours are 8AM 4:30PM Wednesday through Wednesday. Patient Instructions: Antibiotic Form, Clopidogrel (By mouth), Heart Attack (GEN) Patient Language: Upper Sorbian Stand Alone Forms: General Discharge Information Follow-up/Referrals: Dav Henry MD [Physician, Cardiology] - 2 Weeks Discharge Medications: New clopidogrel 75 mg Tablet 75 mg PO QAM Qty: 90 1RF metoprolol tartrate 25 mg Tablet 25 mg PO Q12HR Qty: 60 1RF loperamide 2 mg Capsule 4 mg PO PRN PRN (Reason: Diarrhea) Qty: 20 0RF rosuvastatin 20 mg Tablet 20 mg PO QAM Qty: 30 1RF Continued amlodipine 10 mg tablet 10 mg PO DAILY colestipol 1 gram tablet 1 g PO DAILY hydrocodone-acetaminophen 7.5-325 mg tablet 1 tablet PO Q6H PRN (Reason: pain) pantoprazole 40 mg tablet,delayed release (DR/EC) 40 mg PO BID levetiracetam 500 mg tablet 500 mg PO BID lorazepam 1 mg tablet 2 mg PO HS PRN (Reason: anxiety) valsartan 80 mg tablet 80 mg PO DAILY paroxetine HCl 10 mg tablet 10 mg PO DAILY levothyroxine 150 mcg tablet 150 mcg PO DAILY cholecalciferol (vitamin D3) 25 mcg (1,000 unit) capsule 25 mcg PO DAILY melatonin 10 mg capsule 10 mg PO HS acetaminophen 500 mg capsule 1,000 mg PO TID PRN (Reason: fever or pain) aspirin 81 mg tablet 81 mg PO DAILY Discontinued atorvastatin 20 mg tablet 20 mg PO HS diclofenac sodium 75 mg tablet,delayed release (DR/EC) 75 mg PO BID hydralazine 50 mg tablet 50 mg PO BID metoprolol tartrate 100 mg tablet 100 mg PO BID Date of admission: 04/04/25 20:33 Primary Care Provider: Blu Harrison Admitting Provider: Dav Henry Attending physician on admission: Dav Henry Condition: Serious
--- NOTE | 2025-04-07 13:58 | PM.IMPN ---
Progress Note: A&P Assessment and Plan (1) ST elevation (STEMI) myocardial infarction: Onset Date: 04/04/25 Qualifiers: Involved coronary artery: unspecified coronary artery Qualified Code(s): I21.3 - ST elevation (STEMI) myocardial infarction of unspecified site Code(s): I21.3 - ST elevation (STEMI) myocardial infarction of unspecified site Status: Acute Assessment and Plan: Patient arrived to the ER on 04/04. Initial EKG showed acute STEMI. Taken for emergent LHC on 04/04. 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 Residual 70% mLAD lesion and 70-80% OM. - troponin: <0.012 -> 23.4 -> 32.7 -> 26.4 - cardiology recommended stage intervention with IFR. Continue aspirin, Plavix, rosuvastatin. Echo with EF 60-65% grade 2 diastolic dysfunction mild MR mild TR no pulmonary hypertension. - telemetry monitoring on aspirin and clopidogrel. along with bb and statin. (2) Black stool: Code(s): K92.1 - Melena Status: Acute Assessment and Plan: - GI consulted >> DDx - motility disorder, malabsorption, IBD or microscopic colitis. less likely C diff given the chronic nature of symptoms. Recommended: reduction in diet soda, drinks 2L daily, may be contributing to diarrhea stool studies outpatient colonoscopy, last attempted 1-2 years ago but could not be completed due to poor prep continue Zosyn which will be switched to p.o. Augmentin Imodium prn if stool studies negative for infectious etiology PPI BID - monitor H/H which remains stable. (3) Diverticulitis: Code(s): K57.92 - Diverticulitis of intestine, part unspecified, without perforation or abscess without bleeding Status: Acute Assessment and Plan: - CTA chest/abd/pelvis: 1. Normal caliber thoracic and abdominal aorta with no dissection. 2. Cluster of a few 4-6 mm pulmonary nodules at the posterior lingula which most likely infectious/inflammatory in etiology. If the patient is low risk for lung cancer, no follow-up is needed. If the patient is high risk (i.e., history of smoking or asbestos or significant radiation exposure), optional follow-up chest CT could be considered at 12 months. 3. Edematous-appearing wall thickening along the sigmoid colon suspicious for colitis which could be infectious or inflammatory in etiology. There are however numerous diverticula along the sigmoid colon and this could represent scarring related to chronic diverticulitis. 4. Finally physiologic or reactive free fluid in the pelvis. - started on Zosyn on 04/05 which will be switched to oral Augmentin - pain medication prn - daily clinical reassessment for improvement Colonoscopy to be planned as an outpatient basis augmentin at discharge for total 7 days (4) Chronic diarrhea: Code(s): K52.9 - Noninfective gastroenteritis and colitis, unspecified Status: Acute Assessment and Plan: - see GI consult above (5) Elevated serum creatinine: Code(s): R79.89 - Other specified abnormal findings of blood chemistry Status: Acute Assessment and Plan: Creatinine 1.28, BUN 19, GFR 41 upon admission on 04/04. No previous history of CKD known to patient. However she does have risk factors including diabetes and hypertension. May have hypovolemia component as she has had chronic diarrhea for some time. - creatinine improving, 1.01 and GFR 54 on 04/04 Echo reviewed - reviewed imaging, no obstruction or stones on CTA - Elizabeth in place, monitor I&Os - trend renal function and electrolytes (6) Pulmonary nodule: Code(s): R91.1 - Solitary pulmonary nodule Status: Acute Assessment and Plan: CT showed a cluster of a few 4-6 mm pulmonary nodules at the posterior lingula which most likely infectious/inflammatory in etiology. If the patient is low risk for lung cancer, no follow-up is needed. If the patient is high risk (i.e., history of smoking or asbestos or significant radiation exposure), optional follow-up chest CT could be considered at 12 months. She has a 15 pack year tobacco use, quit 1981. - pulmonary consulted >> recommended Recommend patient repeat CT scan in 3-6 months. The patient will follow-up with her PCP in [facility]. I have told the patient to have a CD burnt with the images of her CT scan on that so she can take those to her PCP and or the radiology department where she has her follow-up scan. (7) Diabetes mellitus: Qualifiers: Diabetes mellitus type: type 2 Diabetes mellitus oil heaterman insulin use: without oil heaterman use Diabetes mellitus complication status: without complication Qualified Code(s): E11.9 - Type 2 diabetes mellitus without complications Code(s): E11.9 - Type 2 diabetes mellitus without complications Status: Acute Assessment and Plan: - hypoglycemia protocol - POC blood glucose ACHS - not currently on an antidiabetic medication, has previously discussed G LP once with her PCP. Patient had fear of gastroparesis and side effects, had long discussion of risks and benefits of GLP1s. Patient appears open to trying this if indicated. - correct regimen ordered - high dose TIDWM, based off BMI - A1C 7.1% on 04/05/25 (8) Essential hypertension: Code(s): I10 - Essential (primary) hypertension Status: Chronic Assessment and Plan: - continue valsartan 80 mg daily. Hold home p.o. hydralazine, metoprolol, and amlodipine. Patient was started on metoprolol 12.5 mg b.i.d. and has hydralazine IVP ordered. - monitor (9) Hyperlipidemia: Qualifiers: Hyperlipidemia type: unspecified Qualified Code(s): E78.5 - Hyperlipidemia, unspecified Code(s): E78.5 - Hyperlipidemia, unspecified Status: Chronic Assessment and Plan: - hold home atorvastatin, started on rosuvastatin 20 mg daily. (10) Hypothyroidism: Qualifiers: Hypothyroidism type: unspecified Qualified Code(s): E03.9 - Hypothyroidism, unspecified Code(s): E03.9 - Hypothyroidism, unspecified Status: Chronic Assessment and Plan: - continue levothyroxine -TSH 0.362 normal free T4 (11) Migraine: Qualifiers: Migraine type: unspecified Status migrainosus presence: without status migrainosus Intractability: not intractable Qualified Code(s): G43.909 - Migraine, unspecified, not intractable, without status migrainosus Code(s): G43.909 - Migraine, unspecified, not intractable, without status migrainosus Status: Chronic Assessment and Plan: - continue Keppra Plan Diet: heart healthy GI Prophylaxis: PPI PO BID DVT Prophylaxis: SCDs IV fluids: LR 50 mL/hr x10hrs Lines/Tubes: peripheral IV Code Status: full code Subjective Date/time seen: 04/07/25 13:58 Interval history: No overnight events. no chest pain or sob. no fever, chills. planned discharge today. Review of Systems Review of Systems: All systems reviewed & are unremarkable except as noted in HPI and below Exam Narrative: GENERAL: The patient is well developed, not in acute distress HEENT: Nonicteric sclerae, PERRLA, EOMI. Oropharynx clear. Moist mucous membranes. Conjunctivae appear well perfused. CHEST: Chest wall is nontender. HEART: Regular rate and rhythm without murmur, rubs, or gallops LUNGS: Clear to auscultation bilaterally. no respiratory distress ABDOMEN: Soft, positive bowel sounds, non-tender, no organomegaly. SKIN: No rash, no excessive bruising, petechiae, or purpura. NEUROLOGIC: Cranial nerves II-XII intact, alert and oriented x 3, no gross motor deficits EXTREMITIES: no edema, cyanosis or clubbing Objective Data Vital Signs Vital Signs: Vital Signs - 24 hr 04/06/25 16:00 04/06/25 16:00 04/06/25 20:00 Temperature 98.2 F Pulse Rate 75 73 64 Respiratory Rate 17 Blood Pressure 168/77 H Pulse Oximetry 99 Oxygen Delivery 04/06/25 20:00 04/06/25 21:03 04/07/25 00:00 Temperature 98.1 F Pulse Rate 64 82 62 Respiratory Rate 12 Blood Pressure 156/62 H Pulse Oximetry 100 Oxygen Delivery 04/07/25 00:00 04/07/25 04:00 04/07/25 04:00 Temperature 97.9 F Pulse Rate 62 64 64 Respiratory Rate 13 16 Blood Pressure 132/66 133/57 L Pulse Oximetry 97 97 Oxygen Delivery 04/07/25 08:00 04/07/25 08:00 04/07/25 08:00 Temperature 97.7 F Pulse Rate 76 76 89 Respiratory Rate 10 L 10 L Blood Pressure 171/67 H Pulse Oximetry 99 99 Oxygen Delivery Room Air 04/07/25 08:52 04/07/25 10:32 04/07/25 12:00 Temperature Pulse Rate 89 68 Respiratory Rate Blood Pressure Pulse Oximetry Oxygen Delivery Room Air Intake/Output Intake/Output: Intake & Output 04/04/25 04/05/25 04/06/25 04/07/25 23:59 23:59 23:59 23:59 Intake Total 2110 870 720 Output Total 900 800 800 Balance 1210 70 -80 Meds/Results Medications: Active Medications Generic Name Dose Route Start Last Admin Trade Name Freq PRN Reason Stop Dose Admin Acetaminophen 650 mg 04/05/25:30 04/06/25 21:15 Acetaminophen 325 Mg Tablet PO 650 mg Q4H PRN Administration Mild Pain (1-3) or Fever Amoxicillin/Clavulanate Potassium 1 tablet 04/06/25 14:00 04/07/25 08:51 Amoxicillin/Clavulanate K 875-125 Mg Tab PO 04/11/25 21:01 1 tablet Q12HR PRESTON Administration Aspirin 81 mg 04/05/25 09:00 04/07/25 08:51 Aspirin 81 Mg Enteric Tablet PO 81 mg QAM PRESTON Administration Clopidogrel Bisulfate 75 mg 04/05/25 09:00 04/07/25 08:51 Clopidogrel Bisulfate 75 Mg Tablet PO 75 mg QAM PRESTON Administration Dextrose 12.5 gm 04/05/25 07:31 Dextrose 50% 25 Gm/50 Ml Syringe IV PUSH PRN PRN Hypoglycemia Protocol Glucagon 1 mg 04/05/25 07:31 Glucagon For Inj 1 Mg Vial IM PRN PRN Hypoglycemia Protocol Glucose 15 gm 04/05/25 07:31 Glucose Oral Gel 15 Gm Of Glucse In 37.5 Gm Tube PO PRN PRN Hypoglycemia Protocol Hydralazine HCl 20 mg 04/05/25 09:27 04/06/25 16:09 Hydralazine Hcl 20 Mg/Ml Vial IV PUSH 20 mg Q4H PRN Administration SBP >160 Dextrose 1,000 mls @ 100 mls/hr 04/05/25 07:31 Dextrose 5% 1,000 Ml IVPB PRN PRN Hypoglycemia Protocol Insulin Aspart 4 - 8 units 04/05/25 17:00 04/07/25 11:34 Insulin Aspart (*Bkc) 100 Units/Ml SUB-Q Not Given TIDWM [facility] Protocol Levetiracetam 500 mg 04/05/25 09:00 04/07/25 08:52 Levetiracetam 500 Mg Tablet PO 500 mg Q12HR PRESTON Administration Levothyroxine Sodium 150 mcg 04/06/25 06:30 04/07/25 08:51 Levothyroxine Sodium 150 Mcg Tablet PO 150 mcg DAILY@0630 PRESTON Administration Loperamide HCl 4 mg 04/06/25 11:27 04/07/25 11:08 Loperamide Hcl 2 Mg Capsule PO 4 mg PRN PRN Administration Diarrhea Lorazepam 2 mg 04/05/25 13:35 04/06/25 21:16 Lorazepam (*Crx) 1 Mg Tablet PO 2 mg HS PRN Administration Anxiety Melatonin 10 mg 04/05/25 21:00 04/06/25 21:04 Melatonin 5 Mg Tablet PO 10 mg HS PRESTON Administration Metoprolol Tartrate 25 mg 04/06/25 09:00 04/07/25 08:52 Metoprolol Tartrate 25 Mg Tablet PO 25 mg Q12HR PRESTON Administration Pantoprazole Sodium 40 mg 04/05/25 09:00 04/07/25 08:52 Pantoprazole 40 Mg Tablet PO 40 mg Q12HR PRESTON Administration Paroxetine HCl 10 mg 04/06/25 09:00 04/07/25 08:52 Paroxetine 10 Mg Tablet PO 10 mg DAILY PRESTON Administration Perflutren Lipid Microsphere 0 ml 04/04/25 21:51 Perflutren Lipid Microspheres 1.5 Ml Vial Diluted To 10 Ml Total Volume IV PUSH 04/07/25 21:53 ONCE PRN adequate visualization Protocol Rosuvastatin Calcium 20 mg 04/05/25 09:00 04/07/25 09:39 Rosuvastatin 20 Mg Tablet PO 20 mg QAM PRESTON Administration Valsartan 80 mg 04/05/25 09:00 04/07/25 09:39 Valsartan 80 Mg Tablet PO 80 mg DAILY PRESTON Administration Vitamin D 25 mcg 04/06/25 09:00 04/07/25 09:39 Cholecalciferol (Vitamin D3) 25 Mcg (1,000 Units) Tablet PO 25 mcg DAILY PRESTON Administration Radiology Results: ITS Impressions Head CT 04/04/25 20:47 IMPRESSION: 1. Age-related changes including moderate diffuse volume loss and mild scattered white matter hypoattenuation consistent with chronic small vessel ischemic disease. No acute intracranial process. 2. Right ventricular shunt catheter with tip in the anterior horn of the right lateral ventricle. Chest X-Ray 04/04/25 20:50 IMPRESSION: 1. No acute cardiopulmonary disease. Chest/Abdomen/Pelvis CTA 04/04/25 20:56 IMPRESSION: 1. Normal caliber thoracic and abdominal aorta with no dissection. 2. Cluster of a few 4-6 mm pulmonary nodules at the posterior lingula which most likely infectious/inflammatory in etiology. If the patient is low risk for lung cancer, no follow-up is needed. If the patient is high risk (i.e., history of smoking or asbestos or significant radiation exposure), optional follow-up chest CT could be considered at 12 months. 3. Edematous-appearing wall thickening along the sigmoid colon suspicious for colitis which could be infectious or inflammatory in etiology. There are however numerous diverticula along the sigmoid colon and this could represent scarring related to chronic diverticulitis. 4. Finally physiologic or reactive free fluid in the pelvis. Carotid Doppler Study 04/05/25 12:38 IMPRESSION: 1. <50% stenosis in the right internal carotid artery. 2. 50-69% stenosis in the left internal carotid artery. Labs Labs: Laboratory Results - last 24 hr 04/06/25 04/06/25 04/07/25 15:52 21:03 03:47 WBC 8.1 RBC 3.22 L Hgb 9.0 L Hct 28.7 L MCV 89.1 MCH 28.0 MCHC 31.4 L RDW 14.6 H Plt Count 290 MPV 10.5 H Sodium 136 L Potassium 3.6 Chloride 107 Carbon Dioxide 21 L Anion Gap 8 BUN 11 D Creatinine 0.93 Estim Creat Clear Calc 49 Estimated GFR 59 Glucose 143 H POC Capillary Glucose 125 H 138 H Calcium 8.6 Magnesium 1.7 Total Bilirubin 0.2 AST 34 ALT 17 Alkaline Phosphatase 62 Total Protein 5.9 L Albumin 3.4 L 04/07/25 04/07/25 07:27 11:15 WBC RBC Hgb Hct MCV MCH MCHC RDW Plt Count MPV Sodium Potassium Chloride Carbon Dioxide Anion Gap BUN Creatinine Estim Creat Clear Calc Estimated GFR Glucose POC Capillary Glucose 86 173 H Calcium Magnesium Total Bilirubin AST ALT Alkaline Phosphatase Total Protein Albumin
[2025-04-10 14:08] LABS: Pancreatic Elastase, Fecal 246 (>200)
[2025-04-11 11:12] LABS: Calprotectin, Fecal 7100 ug/g (0-120)
== END 2025-04-07 14:30 | disposition home or self-care (01) | DRG 229 ==
LOC: ANHED 20:26 → ANHICU 04-05 03:13
PROVIDERS: Internal Medicine; Nurse Practitioner Family; Student in an Organized Health Care Education/Training Program; Admitting Provider Internal Medicine Interventional Cardiology; Emergency Provider Student in an Organized Health Care Education/Training Program; PCP Emergency Medicine; Visit Provider Internal Medicine Adolescent Medicine
PROC: 4A023N7 Measurement of Cardiac Sampling and Pressure, Left Heart, Percutaneous Approach (ICD-10-PCS; CPT 93452; principal; 2025-04-04 20:15)
PROC: 027034Z Dilation of Coronary Artery, One Artery with Drug-eluting Intraluminal Device, Percutaneous Approach (ICD-10-PCS; CPT 92928; 2025-04-04 20:15)
PROC: 4A023N7 Measurement of Cardiac Sampling and Pressure, Left Heart, Percutaneous Approach (ICD-10-PCS; 2025-04-04 20:15)
DX: I21.3 ST elevation (STEMI) myocardial infarction of unspecified site (principal); K57.92 Diverticulitis of intestine, part unspecified, without perforation or abscess without bleeding; K92.1 Melena; G91.0 Communicating hydrocephalus; I12.9 Hypertensive chronic kidney disease with stage 1 through stage 4 chronic kidney disease, or unspecified chronic kidney disease; K52.9 Noninfective gastroenteritis and colitis, unspecified; K21.9 Gastro-esophageal reflux disease without esophagitis; K22.89 Other specified disease of esophagus; E86.1 Hypovolemia; E78.5 Hyperlipidemia, unspecified; E03.9 Hypothyroidism, unspecified; I65.22 Occlusion and stenosis of left carotid artery; N18.30 Chronic kidney disease, stage 3 unspecified; E11.22 Type 2 diabetes mellitus with diabetic chronic kidney disease; E66.9 Obesity, unspecified; D63.1 Anemia in chronic kidney disease; R15.9 Full incontinence of feces; R13.19 Other dysphagia; R91.8 Other nonspecific abnormal finding of lung field; R79.89 Other specified abnormal findings of blood chemistry; R60.0 Localized edema; R63.0 Anorexia; H93.19 Tinnitus, unspecified ear; Z20.822 Contact with and (suspected) exposure to COVID-19; G43.909 Migraine, unspecified, not intractable, without status migrainosus; F41.9 Anxiety disorder, unspecified; Z87.891 Personal history of nicotine dependence; Z68.32 Body mass index [BMI] 32.0-32.9, adult; Z90.49 Acquired absence of other specified parts of digestive tract; Z79.82 Long term (current) use of aspirin; Z79.891 Long term (current) use of opiate analgesic; Z98.2 Presence of cerebrospinal fluid drainage device
CPT/HCPCS: 36415; 70450; 71045; 71275; 74174; 80048; 80053; 80061; 81001; 82274; 82550; 82570; 82653; 82948; 83036; 83735; 83880; 83993; 84300; 84439; 84443; 84480; 84484; 85025; 85027; 85610; 85730; 86850; 86900; 86901; 87040; 87045; 87046; 87086; 87427; 87493; 87641; 93005; 93306; 93458; 93880; 97161; 99285; A9270; C1725; C1757; C1760; C1769; C1874; C1887; C1894; C9606; G0269; J0360; J1200; J1644; J1815; J2003; J2250; J2305; J2543; J2919; J3010; J3475; J7030; J7040; J7120; Q9967

== ENCOUNTER 2025-05-21 00:29 | Day surgery (SDC) | payer MEDICARE, SELFPAY ==
[2025-05-18 12:00] VITALS: BMI 34.5
[2025-05-18 14:21] VITALS: BMI 34.5
[2025-05-21] VITALS (19 sets, daily range): BP systolic 107–149; BP diastolic 51–92; PULSE 62–70; RESP 12–19; TEMP 36.7; O2SAT 97–100; BMI 35.8
--- OUTSIDE RECORDS SUMMARY | 2025-05-21 00:42 | XMS_ITS | Encounter Summary ---
Author Organization [facility] Healthcare Address [address] [place] [address] Care Team Providers Care Door Patcher Name Role Phone Truong Higgins MD Primary Care Provider Pricila Matias MD Primary Care Provider Dav Henry MD Unavailable [phone] Encounter Details Date Type Department Care Team (Late st Contact Info) Description 05/02/2025 Telephone [facility] Medical Group Cardiology [address] [facility] [address] [place] [id number] Mitzi Figueroa NP [address] [place] [address] Social History Tobacco Use Types Packs/Day Years Used Date Smoking Tobacco: Former Cigarettes 0.3 3.4 0 02/02/1970 - 06/15/1973 Smokeless Tobacco: Never Comments:Ciggeretts mosr of them burnt up Alcohol [...] on file 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 Gender Identity Not on file Sexual Orientation Not on file documented as of this encounter Functional Status * BP Location Answer Date of Assessment Author Right arm 05/04/2025 11:32 AM CDT Loraine Betancourt MA * BP Location Answer Date of Assessment Author Right arm 05/04/2025 11:32 AM CDT Loraine Betancourt MA documented as of this encounter Miscellaneous Notes * Telephone Encounter - Guera Pettit RN - 05/02/2025 3:35 PM CDT Spoke to Jean, pt had stents placed after [place] and was taken off Diclofenac, reinforced that this was because she is now on Plavix and ASA and NSAIDS can increase bleeding risk, She is taking Tylenol or Hydrocodone as needed for arthritis pain right now and will further discuss option at appt with CT on 05/04. * Telephone Encounter - Lucia Armstrong - 05/02/2025 2:58 PM CDT Jean called in and states that patient normally takes diclofenac and someone had the patient stop taking it. He states that she is needing to get back on it. I let him know that I did not see that medication on her list, so I was not sure who stopped it or why. Requesting a call back to discuss. Please advise. Thank you. Contact : [phone] documented in this encounter Plan of Treatment Not on file documented as of this encounter Visit Diagnoses Not on filedocumented in this encounter Care Teams Door Patcher Relationship Specialty Start Date End Date Truong Higgins MD [facility] [address] [address] PCP - General 10/02/16 05/03/25 Pricila Matias MD [address] [place] [id number] PCP - General Family Medicine 05/04/25 Dav Henry MD [address] [facility] [address] [address] Consulting Physician Cardiology 05/07/25 documented as of this encounter
--- OUTSIDE RECORDS SUMMARY | 2025-05-21 00:42 | XMS_ITS | Encounter Summary ---
Author Organization [facility] Healthcare Address [address] [place] [address] Care Team Providers Care Lease Purchase Driver Name Role Phone Truong Higgins MD Primary Care Provider Pricila Matias MD Primary Care Provider [phone] Dav Henry MD Unavailable [phone] Encounter Details Date Type Department Care Team (Late st Contact Info) Description 04/04/2025 Orders Only [facility] Health Information Management [address] [place] [id number] Dav Henry MD [address] [place] [address] [address] Social History Tobacco Use Types Packs/Day Years [...] on file 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[employer] Gender Identity Not on file Sexual Orientation Not on file documented as of this encounter Plan of Treatment Not on file documented as of this encounter Procedures Procedure Name Priority Date/Time Associated Diagnosis Comments SCAN - RADIOLOGY/IMAGING 04/04/2025 CARDIOLOGY DOCUMENT SCAN 04/04/2025 documented in this encounter Results * SCAN - RADIOLOGY/IMAGING (04/04/2025) Anatomical Region Laterality Modality Other us Shirin Wall ARCHIVIST Fi nal Result * Cardiology Document Scan (04/04/2025) Anatomical Region Laterality Modality Other us Dav Henry MD [facility] C[facility]IAC SERVICES PROCEDU RES Edited Result - Final documented in this encounter Visit Diagnoses Not on filedocumented in this encounter Care Teams Lease Purchase Driver Relationship Specialty Start Date End Date Truong Higgins MD [address] [address] PCP - General 10/02/16 05/03/25 Pricila Matias MD [address] [place] [id number] PCP - General Family Medicine 05/04/25 Dav Henry MD [address] [place] [id number] Consulting Physician Cardiology 05/07/25 documented as of this encounter
--- OUTSIDE RECORDS SUMMARY | 2025-05-21 00:43 | XMS_ITS | Clinical Summary ---
Author Organization [facility] Address [address] [place] [address] Care Team Providers Care Edge Stainer Machine Name Role Phone Truong Higgins MD Primary Care Provider [phone] Rhoda Post DPM Unavailable [phone] Source Comments [facility],non-owned Affiliates and Associated Physician Practices is amultiple site organization consisting of ambulatory clinics and hospital sitesin [place], [place], [place] and [place]. This disclosure is being madepursuant to the Care Everywhere program and may not contain all information available regarding this patient. Last updated 18.[facility] Allergies Active Allergy Reactions Criticality Noted Date Comments Jose Inhibitors Rash Medium 08/17/2016 Glimepiride GI Discomfort 12/25/2021 Iodine Itching Low 10/06/2018 Metformin Diarrhea 12/25/2021 Sitagliptin Swelling 12/25/2021 Sulfa Drugs Urticaria Medium 02/07/2015 Medications * Be aware that medications may not be up to date on this document. Alwaysverify current medications with the patient. amLODIPine (NORVASC) 10 MG tablet Take 1 (one) tablet by mouth Active aspirin (ASPIRIN) 81 MG tablet Take 1 (one) tablet by mouth Active atorvastatin (LIPITOR) 20 MG tablet Take 1 (one) tablet by mouth Active vitamin D3-cholecalcifer ol (CHOLECACIFEROL) 1000 UNITS tablet Active clobetasol (TEMOVATE) 0.05 % solution 8 Active cyanocobalamin (VITAMIN B-12) 1000 MCG tablet Take 1 (one) tablet by mouth Active diphenhydrAMINE (BENADRYL) 25 MG capsule Take 1 (one) capsule by mouth Active HYDROcodone-acet aminophen (NORCO) 7.5-325 MG tablet Take 1 (one) tablet to 2 (two) tablets by mouth Active hydrocortisone (HYTONE) 2.5 % cream 8 Active levothyroxine (SYNTHROID) 175 MCG tablet Take 1 (one) tablet by mouth once daily Active LORazepam (ATIVAN) 1 MG tablet Take 1 (one) tablet by mouth 3 times daily Active metoprolol tartrate (LOPRESSOR) 100 MG tablet Take 1 (one) tablet by mouth 2 times daily Active baclofen (LIORESAL) 10 MG tablet 0 Active colestipol (COLESTID) 1 GM tablet TAKE 1 TABLET BY MOUTH THREE TIMES A DAY NEEDED 1 Active valsartan (DIOVAN) 80 MG tablet Take 1 (one) tablet by mouth once daily 0 Active hydrALAZINE (APRESOLINE) 50 MG tablet Take 1 (one) tablet by mouth 2 times daily Active PARoxetine (PAXIL) 10 MG tablet Take 1 (one) tablet by mouth once daily 1 Active triamcinolone acetonide (Kenalog) 0.1 % ointment Apply to affected area 2 times daily For 7-14 days 30 g 2 Active acetaminophen (Tylenol) 500 MG tablet Take 2 (two) tablets by mouth at bedtime Active alum hydroxide-mag carbonate (Gaviscon) 160-105 MG chew tablet Take 1 (one) tablet by mouth 3 times daily as needed Active Blood Glucose Monitoring Suppl (Accu-Chek Guide Me) w/Device KIT USE TO CHECK BLOOD SUGAR TWICE DAILY 2 Active SOFTCLIX LANCETS MISC Use to check blood sugar twice daily 2 Active levETIRAcetam (Keppra) 500 MG tablet Take by mouth every 12 hours 2 Active lidocaine viscous (Xylocaine) 2 % solution take 10 milliliters by oral route and swish and spit out three times daily as needed for pain 1 Active loperamide (Imodium) 2 MG capsule Take 1 (one) capsule by mouth Active LORazepam (Ativan) 1 MG tablet Take 2 (two) tablets by mouth at bedtime Active traMADol (Ultram) 50 MG tablet 2 Active MELATONIN PO Active mupirocin (Bactroban) 2 % ointment Apply to affected area 3 times daily 22 g 3 Active dapagliflozin propanediol (Farxiga) 10 MG tablet Take by mouth every 24 hours 3 Active pantoprazole EC (Protonix) 40 MG tablet Take 1 (one) tablet by mouth 2 times daily 3 Active Active Problems No known active problems Immunizations Immunization Administration Dates Next Due INFLUENZA VACCINE 07/05/2017 Family History Medical History Relation Name Comments Cancer - Breast Neg Hx Social History Tobacco Use Types Packs/Day Years Used Date Smoking Tobacco: Never Smokeless Tobacco: Never Tobacco Cessation:Counseling Given: Not Answered Alcohol Use Standard Drinks/Week Comments No 0 (1 standard drink = 0.6 oz pur e alcohol) Comments No Sex and Gender Information Value Date Recorded Sex Assigned at Female 05/06/2023 11:16 AM CDT Legal Sex Female 6:21 AM MAIL WEIGHER Gender Identity Not on file Sexual Orientation Not on file Last Filed Vital Signs Vital Sign Reading Time Taken Comments Blood Pressure 168/104 06/02/2024 6:46 AM MAIL WEIGHER Pulse 60 06/02/2024 6:46 AM MAIL WEIGHER Temperature 36.4 C (97.5 F) 06/02/2024 4:24 AM MAIL WEIGHER Respiratory Rate 15 06/02/2024 6:46 AM MAIL WEIGHER Oxygen Saturation 99% 06/02/2024 6:46 AM MAIL WEIGHER Inhaled Oxygen Concentration - - Weight 96.2 kg (212 lb) 06/02/2024 4:24 AM MAIL WEIGHER Height 165.1 cm (5' 5) 06/02/2024 4:24 AM MAIL WEIGHER Body Mass Index 35.28 06/02/2024 4:24 AM MAIL WEIGHER Plan of Treatment Health Maintenance Due Date Last Done Comments COLOGUARD (AGES 45-75) - COLON CA SCREENING 1952 CT COLONOGRAPHY - COLON CA SCREENING 1950 FIT - COLON CA SCREENING 1950 FLEX SIG - COLON CA SCREENING 1950 MEDICARE AWV 12 MONTHS 1950 HEPATITIS C SCREENING 01/29/1970 DTAP/TDAP/TD VACCINES (1 - Tdap) 02/02/1971 PNEUMOCOCCAL VACCINE 50+ (1 of 1 - PCV) 02/02/2002 Respiratory Syncytial Virus (RSV) Vaccine Pt: or over 60 yrs (1 - Risk 50-74 years 1-dose series) 02/02/2002 ZOSTER VACCINE (1 of 2) 02/02/2002 DEPRESSION SCREENING 07/05/2024 COVID-19 VACCINE (3 - season) 2025 04/15/2023, 10/03/2020 INFLUENZA VACCINE (#1) 2025 , 03/30/2023, 03/17/2022, Additional history exists MAMMOGRAM 05/21/2025 05/21/2023, 05/05, 05/07/2022, Additional history exists SCREENING FOR DIABETES 06/02/2027 , 09/09/2021, 08/21/2017 COLON MONITORING 07/24/2030 07/24/2020, 01/25/2015 COLONOSCOPY - COLON CA SCREENING 07/24/2030 07/24/2020, 01/25/2015 Colorectal Cancer Screening 07/24/2030 BONE DENSITY TESTING Completed 11/30/2012 HEPATITIS B VACCINE Aged Out No longe r eligible based on patient's age to complete this topic HIB VACCINE Aged Out No longer eligi ble based on patient's age to complete this topic HPV VACCINE Aged Out No longer eligi ble based on patient's age to complete this topic MENINGOCOCCAL (Group B) VACCINE SHARED DECISION-MAKING Aged Out No longer eligible based on patient's age to complete this topic MENINGOCOCCAL GROUPS A/C/Y/W VACCINE Aged Out No longer eligible based on patient's age to complete this topic Procedures Procedure Name Priority Date/Time Associated Diagnosis Comments COMPREHENSIVE METABOLIC PANEL STAT 06/02/2024 4:56 AM MAIL WEIGHER MAMMO BILAT SCREENING W SARAH Routine 05/21/2023 12:18 PM MAIL WEIGHER Visit for screening mammogram from Last 3 Months or Most Recently Relevant to Health Maintenance Results * (ABNORMAL) COMPREHENSIVE METABOLIC PANEL (06/02/2024 4:56 AM MAIL WEIGHER) Glucose 204(H) 70 - 99 mg/dL 06/02/2024 5:14 AM [facility] Sodium 135(L) 136 - 145 mmol/L 06/02/2024 5:14 AM [facility] Potassium 4.4 3.5 - 5.1 mmol/L 06/02/2024 5:14 AM [facility] Chloride 107 98 - 107 mmol/L 06/02/2024 5:14 AM [facility] CO2 13(L) 22 - 29 mmol/L 06/02/2024 5:14 AM [facility] Calcium 9.7 8.4 - 10.4 mg/dL 06/02/2024 5:14 AM [facility] Anion Gap 15 6 - 16 mmol/L 06/02/2024 5:14 AM [facility] BUN 20 7 - 26 mg/dL 06/02/2024 5:14 AM [facility] Creatinine 1.41(H) 0.57 - 1.11 mg/dL 06/02/2024 5:14 AM [facility] Alkaline Phosphatase 77 40 - 150 U/L 06/02/2024 5:14 AM [facility] ALT 27 0 - 55 U/L 06/02/2024 5:14 AM [facility] AST 23 5 - 34 U/L 06/02/2024 5:14 AM [facility] Protein Total 7.9 6.4 - 8.3 gm/dL 06/02/2024 5:14 AM [facility] Albumin 4.1 3.4 - 5.0 gm/dL 06/02/2024 5:14 AM [facility] Bilirubin Total 0.3 0.2 - 1.2 mg/dL 06/02/2024 5:14 AM [facility] eGFR by CKD-EPI 40(L) >=90 mL/min/1.7 3 m2 06/02/2024 5:14 AM [facility] Blood BLOOD SPECIMEN / Unknown Venipuncture / Unknown 06/02/2024 4:56 AM MAIL WEIGHER 06/02/2024 4:56 AM [facility] Earl Coleman MD LAB - CHEMISTRY ORDERABLES Rachel herrmann Result [facility] [address] [place] [address] * MAMMO BILAT SCREENING W SARAH (05/21/2023 12:18 PM MAIL WEIGHER) Anatomical Region Laterality Modality Breast Bilateral Mammography 05/24/2023 9:12 AM MAIL WEIGHER Impressions 05/24/2023 9:13 AM MAIL WEIGHER : No mammographic evidence of malignancy. BI-RADS Category 1: Negative Recommendation: Resume routine yearly mammography schedule for women over age 40 or return sooner if clinically indicated. > Interpreting Provider: Earl Rowland MD on 05/24/2023 9:13 AM Narrative 05/24/2023 9:13 AM MAIL WEIGHER Bilateral mammography. Most recent comparison: from within 2 years as documented in PACS. History: Screening mammogram. Technique: Bilateral Breasts. Mammography views included: CC and MLO. Images interpreted with CAD. Following current [facility] protocol, 3D mammographic tomosynthesis images were obtained and reviewed on a dedicated viewing station. FINDINGS: Breast composition: Scattered areas of fibroglandular density. No suspicious microcalcifications, masses or areas of architectural distortion. There are non suspicious punctate and coarse calcifications; these reduce exam sensitivity for detection of new or developing suspicious microcalcifications. us Truong Higgins MD MAMMO ORDERABLES Final Resul t from Last 3 Months or Most Recently Relevant to Health Maintenance Insurance [facility] MEDICARE MEDICARE [employer] [place] [id number] Care Teams Edge Stainer Machine Relationship Specialty Start Date End Date Truong Higgins MD PCP - General 10/19/17 Rhoda Post DPM [address] [id number] Podiatry 09/09/21
--- OUTSIDE RECORDS SUMMARY | 2025-05-21 00:44 | XMS_ITS | Encounter Summary ---
Author Organization [facility] Address 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
--- OUTSIDE RECORDS SUMMARY | 2025-05-21 00:44 | XMS_ITS | Encounter Summary ---
Author Organization [facility] Address 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
--- OUTSIDE RECORDS SUMMARY | 2025-05-21 00:44 | XMS_ITS | Encounter Summary ---
Author Organization [facility] Address [address] [place] [address] Care Team Providers Care Mortar Mixer Operator Name Role Phone Truong Higgins MD Primary Care Provider [phone] Encounter Details Date Type Department Care Team (Late st Contact Info) Description 04/28/1999 Outpatient Historical HIS [facility] [address] [facility] [address] [place], [place] [id number] Social History Tobacco Use Types Packs/Day Years Used Date Smoking Tobacco: Never Assessed Comments Unknown Sex and Gender Information Value Date Recorded Sex Assigned at Not on file Legal Sex Female 3:54 AM HALF SOLE FITTER Gender Identity Not on file Sexual Orientation Not on file documented as of this encounter Plan of Treatment Not on file documented as of this encounter Visit Diagnoses Not on filedocumented in this encounter Care Teams Mortar Mixer Operator Relationship Specialty Start Date End Date Truong Higgins MD [address] [facility] [address] [place], [place] [id number] PCP - General Family Practice 10/06/18 documented as of this encounter
--- OUTSIDE RECORDS SUMMARY | 2025-05-21 00:44 | XMS_ITS | Encounter Summary ---
Author Organization [facility] Address 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
--- OUTSIDE RECORDS SUMMARY | 2025-05-21 00:44 | XMS_ITS | Encounter Summary ---
Author Organization [facility] Address 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
--- OUTSIDE RECORDS SUMMARY | 2025-05-21 00:44 | XMS_ITS | Clinical Summary ---
Author Organization [facility] Address [address] [place] [address] Phone Care Team Providers Care Hoseman Name Role Phone Truong Higgins MD Primary Care Provider [phone] Allergies Active Allergy Reactions Criticality Noted Date Comments Iodinated Contrast Media Itching Low 10/06/2018 Iodine Itching Low 10/06/2018 Medications LORazepam (ATIVAN) 1 mg tablet Take 1 mg by mouth 3 times daily. Active atorvastatin (LIPITOR) 20 mg tablet Take 20 mg by mouth daily at bedtime. Active aspirin (ETHAN CHEWABLE) 81 mg Tablet, Chewable Take 81 mg by mouth daily. Active levothyroxine 175 mcg tablet Take 175 mcg by mouth daily. Active diclofenac sodium (VOLTAREN) 75 mg Tablet, Delayed Release (E.C.) Take 75 mg by mouth 2 times daily. Active cyanocobalamin 1,000 mcg Tablet Take 1,000 mcg by mouth daily. Active levETIRAcetam (KEPPRA) 250 mg tabletIndicatio ns:Patient is taking 500 mg BID Take 250 mg by mouth 2 times daily. Active omeprazole (PriLOSEC) 20 mg Capsule, Delayed Release(E.C.) Take 20 mg by mouth daily. Active melatonin 5 mg Tablet Take 5 mg by mouth daily at bedtime. Active amLODIPine (NORVASC) 10 mg tablet Take 10 mg by mouth daily. Active PARoxetine HCl (PAXIL) 20 mg tablet Take 10 mg by mouth daily. Active hydrALAZINE (APRESOLINE) 25 mg tablet Take 25 mg by mouth 3 times daily. Active metoprolol (LOPRESSOR) 1.25 mg/mL Suspension Take by mouth. Active metoprolol tartrate (LOPRESSOR) 100 mg tablet Take 100 mg by mouth 2 times daily. Active colestipol (COLESTID) 1 gram tablet 1 Gram 3 times daily. Active HYDROcodone-oliver taminophen (NORCO) 7.5-325 mg Tablet Take 2 Tablets by mouth 2 times daily as needed for Pain, Moderate. Active zinc oxide-hydrocort isone-ketoconaz ole Apply to affected area. Active triamcinolone acetonide (KENALOG) 0.1 % Cream Apply 0.1 Grams to affected area 2 times daily. 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 Immunizations Immunization Administration Dates Next Due Influenza Seasonal Unspecified Formulation IM Pneumococcal conjugate, unspecified formulation 03/05/2018 Family History Medical History Relation Name Comments Diabetes Father Diabetes Mother High Cholesterol Mother Hypertension Mother Relation Name Status Comments Father Mother Social History Tobacco Use Types Packs/Day Years Used Date Smoking Tobacco: Former Cigarettes Smokeless Tobacco: Never Comments Unknown Sex and Gender Information Value Date Recorded Sex Assigned at Not on file Legal 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 Gender Identity Not on file Sexual Orientation Not on file Last Filed Vital Signs Vital Sign Reading Time Taken Comments Blood Pressure 116/61 10/07/2018 12:33 PM CDT Pulse 78 10/07/2018 7:00 AM CDT Temperature 36.4 C (97.6 F) 10/07/2018 7:00 AM CDT Respiratory Rate 18 10/07/2018 7:00 AM CDT Oxygen Saturation 96% 10/07/2018 7:00 AM CDT Inhaled Oxygen Concentration - - Weight 99.8 kg (220 lb) 10/07/2018 7:00 AM CDT Height 162.6 cm (5' 4) 10/07/2018 7:00 AM CDT Body Mass Index 37.76 10/07/2018 7:00 AM CDT Plan of Treatment Health Maintenance Due Date Last Done Comments DIABETES ANNUAL FOOT EXAM 02/02/1970 DIABETES ANNUAL RETINAL EXAM 02/02/1970 DIABETES HBA1C Q 6 MONTHS 02/02/1970 DIABETES MICROALBUMIN ANNUAL SCREEN 02/02/1970 LDL CHOLESTEROL ANNUAL 02/02/1970 COLORECTAL SCREENING 02/02/1997 Colorectal Cancer Screening 02/02/1997 FIT-DNA Q 3 years 02/02/1997 FIT/FOBT Q 1 year 02/02/1997 Flex Sig/CT Colonography Q 5 years 02/02/1997 ZOSTER VACCINE (1 of 2) 02/02/2002 OSTEOPOROSIS SCREENING 02/02/2017 PNEUMOCOCCAL VACCINE 50+ YEA RS (2 of 2 - PCV) 03/05/2019 03/05/2018, 05/07/2010 DTAP/TDAP/TD VACCINES (2 - T d or Tdap) 07/31/2021 07/31/2011 BREAST CANCER SCREENING 05/21/2024 05/21/20 23, 05/21/2023, 05/07/2022, Additional history exists INFLUENZA VACCINE (#1) 2025 04/04/2018, 2011 RSV VACCINE (60+ or ) (1 - 1-dose 75+ series) 02/02/2027 Insurance MEDICARE PART A AND B [employer] SU[id number] Advance Directives For more information, please contact: [phone] * Full Code (Latest Code Status on File) Date Activated Date Inactivated Comments 10/07/2018 8:43 AM 10/07/2018 6:55 PM Care Teams Hoseman Relationship Specialty Start Date End Date Truong Higgins MD [facility] [facility] [address] [place] [address] PCP - General Family Practice 10/06/18
--- OUTSIDE RECORDS SUMMARY | 2025-05-21 00:44 | XMS_ITS | Encounter Summary ---
Author Organization [facility] Address [address] [place] [address] Care Team Providers Care Food Production Supervisor Name Role Phone Truong Higgins MD Primary Care Provider [phone] Encounter Details Date Type Department Care Team (Late st Contact Info) Description 06/23/1999 Outpatient Historical HIS [facility] [place] [address] [facility] [address] [place], [place] [phone] Social History Tobacco Use Types Packs/Day Years Used Date Smoking Tobacco: Never Assessed Comments Unknown Sex and Gender Information Value Date Recorded Sex Assigned at Not on file Legal Sex Female 3:54 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
--- OUTSIDE RECORDS SUMMARY | 2025-05-21 00:44 | XMS_ITS | Encounter Summary ---
Author Organization [facility] Address 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
--- OUTSIDE RECORDS SUMMARY | 2025-05-21 00:44 | XMS_ITS | Encounter Summary ---
Author Organization [facility] Address 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
[2025-05-21 07:28] LABS: Hematocrit 34.7 % (37.0-47.0); Hemoglobin 10.6 g/dL (12.0-15.0); Immature Granulocyte Percent A 0.3 % (0-0.5); Lymphocytes Absolute Auto 0.85 K/mm3 (0.9-3.2); Mean Corpuscular HGB Conc 30.5 g/dl (32-36); Mean Corpuscular Hemoglobin 25.8 pg (26-34); Mean Corpuscular Volume 84.4 fl (80-100); Nucleated Red Blood Cells Absolute Auto 0.000 K/mm3 (0.0-0.012); Nucleated Red Blood Cells Perc 0.0 % (0.0-0.2); Platelet Count Result 392 k/mm3 (150-375); Red Blood Count 4.11 M/mm3 (4.2-5.4); White Blood Count 6.4 K/mm3 (4.5-10.0)
--- NOTE | 2025-05-21 07:34 | SUR.PREOP ---
pt taking 50 benadryl and 50 of prednisone at this time for dye allergy protocol. pt did not take her home asa and plavix this am pt took those at this time also per protocol. pt stable and comfortable.
[2025-05-21 07:47] LABS: Anion Gap 16 mmol/L (4-12); Blood Urea Nitrogen 11 mg/dL (7-17); Calcium 9.2 mg/dL (8.4-10.2); Carbon Dioxide 21 mmol/L (22-30); Chloride 100 mmol/L (98-107); Estimated CRCL calculation 49 ml/min; Estimated Glomerular Filt Rate 56; Glucose 335 mg/dL (65-110); Potassium 3.1 mmol/L (3.4-5.0); Sodium 137 mmol/L (137-145)
[2025-05-21] MEDS: POTASSIUM CHLORIDE 20 MEQ ER TABLET 40 MEQ PO (08:00)
--- NOTE | 2025-05-21 08:34 | WPDHPUPDATE1 ---
History and Physical Update Update Date/Time: 05/21/25 08:34 History and Physical has been reviewed, including an updated exam of the patient. There are NO changes in the patient's condition. Risks, benefits, and alternatives have been discussed and questions answered. Patient agrees to proceed with procedure.
--- NOTE | 2025-05-21 08:34 | WPDMODSED ---
Moderate Sedation Note-Pt Data Patient Data Allergies Allergy/AdvReac Type Severity Reaction Status Date / Time iodine Allergy Intermediate Itching Verified 05/18/25 14:13 Sulfa (Sulfonamide Allergy Unknown Unknown Verified 05/18/25 14:13 Antibiotics) Home Medications ?Medication ?Instructions ?Recorded ?Confirmed ?Type acetaminophen 500 mg capsule 1,000 mg PO TID PRN fever or pain 04/04/25 05/18/25 History amlodipine 10 mg tablet 10 mg PO DAILY 04/04/25 05/18/25 History aspirin 81 mg tablet 81 mg PO DAILY 04/04/25 05/18/25 History colestipol 1 gram tablet 1 g PO DAILY 04/04/25 05/18/25 History hydrocodone 7.5 mg-acetaminophen 1 tablet PO Q6H PRN pain 04/04/25 05/18/25 History 325 mg tablet levetiracetam 500 mg tablet 500 mg PO BID 04/04/25 05/18/25 History levothyroxine 150 mcg tablet 150 mcg PO DAILY 04/04/25 05/18/25 History lorazepam 1 mg tablet 2 mg PO HS PRN anxiety 04/04/25 05/18/25 History melatonin 10 mg capsule 10 mg PO HS 04/04/25 05/18/25 History pantoprazole 40 mg tablet,delayed 40 mg PO BID 04/04/25 05/18/25 History release paroxetine HCl 10 mg tablet 10 mg PO DAILY 04/04/25 05/18/25 History valsartan 80 mg tablet 80 mg PO DAILY 04/04/25 05/18/25 History clopidogrel 75 mg tablet (Plavix) 75 mg PO DAILY #90 tabs 04/07/25 05/18/25 Rx loperamide 2 mg capsule 4 mg (2 x 2 mg) PO PRN PRN 04/07/25 05/18/25 Rx Diarrhea #20 caps rosuvastatin 20 mg tablet 20 mg PO QAM #30 tabs 04/07/25 05/18/25 Rx cetirizine 10 mg capsule (All Day 10 mg PO DAILY PRN allergy symptoms 05/18/25 05/18/25 History Allergy (cetirizine)) cholecalciferol (vitamin D3) 25 25 mcg PO DAILY 05/18/25 05/18/25 History mcg (1,000 unit) tablet (PureVita Vitamin D3) famotidine 10 mg tablet (Pepcid AC) 10 mg PO DAILY 05/18/25 05/18/25 History metoprolol tartrate 25 mg tablet 50 mg PO BID 05/18/25 05/18/25 History nitroglycerin 0.4 mg sublingual 0.4 mg sublingual Q5M PRN chest 05/18/25 05/18/25 History tablet pain Sedation/Anesthesia: No previous sedation/anesthesia problems (including family history). [facility] Past Medical History Medical History (Updated 04/05/25 @ 22:15 by La Choudhury APRN) ST elevation (STEMI) myocardial infarction (04/04/25) Pseudotumor cerebri Hypothyroidism Depression Anxiety Pulmonary nodule Fibromyalgia Migraine Hyperlipidemia Essential hypertension Diabetes mellitus Diverticulosis Chronic diarrhea Surgical History Surgical History (Updated 04/05/25 @ 21:17 by La Choudhury APRN) History of cholecystectomy History of appendectomy History of hysterectomy Status post ventriculoatrial shunt placement Family History Family History Mother Cancer, uterine Father Cardiac complications Cancer, colon Bypass graft stenosis Social History Social History Smoking packs per day: 0.5 Smoking cigarettes per day: 10.0 Years smoked: 15 Smoking pack-years: 7.50 Smoking status: Former smoker Tobacco type: cigarettes Second hand tobacco smoke exposure: No Alcohol intake: never Substance use: never Substance use type: does not use Lack of Transportation: No Lack of Food: Never True Current Housing: I Have Housing Concerned About Future Housing: No Difficulty Paying Gas/Electric Bills: No Difficulty Paying for Meds: No Currently Unemployed: No Education: High School Diploma/GED Difficulty w/ Childcare or Family Care: No Spiritual care concerns: No Mod Sed Physical Exam Physical Exam Pre Procedural Exam: Normal: Lungs, Heart Size, Heart Rate and Heart Rhythm Hours since solid foods: 12 Hours since liquid intake: 12 Mallampati Classification: class II Internal Medicine - PN: Obj Da Vital Signs Vital Signs: Vital Signs - 24 hr 05/21/25 07:00 Temperature 36.7 C Pulse Rate 68 Respiratory Rate 13 Blood Pressure 149/80 H Pulse Oximetry 99 Oxygen Delivery Room Air Labs 05/21/25 07:23 05/21/25 07:23 Labs: Laboratory Results - last 24 hr 05/21/25 07:23 WBC 6.4 RBC 4.11 L Hgb 10.6 L Hct 34.7 L MCV 84.4 MCH 25.8 L MCHC 30.5 L RDW 13.8 Plt Count 392 H MPV 10.8 H Immature Gran % (Auto) 0.3 Neut % (Auto) 85.5 H Lymph % (Auto) 13.4 L [place] % (Auto) 0.6 L Eos % (Auto) 0.0 Baso % (Auto) 0.2 Lymph # (Auto) 0.85 L [place] # (Auto) 0.0 L Eos # (Auto) 0.0 Baso # (Auto) 0.0 Abs Immat Gran (auto) 0.02 Absolute Neuts (auto) 5.4 Absolute Nucleated RBC 0.000 Nucleated RBC % 0.0 Sodium 137 Potassium 3.1 L Chloride 100 Carbon Dioxide 21 L Anion Gap 16 H BUN 11 Creatinine 0.97 Estim Creat Clear Calc 49 Estimated GFR 56 L Glucose 335 H Calcium 9.2 ASA Classification/Sedation ASA Classification/Sedation ASA Class: III Emergent: No Risks: Risks, benefits and alternatives explained and patient/family accepted plan for sedation. Patient re-evaluated immediately prior to sedation.
[2025-05-21] MEDS: SODIUM CHLORIDE 0.9% IV 1,000 ML 125 ML IV CONT (11:00)
--- NOTE | 2025-05-21 11:16 | P.PCNCC_ITS ---
Cardiac Cath Procedure Note Date of procedure:: 05/21/25 Performing physician:: CATHETERIZATION LABORATORY REPORT Procedure Date: 05/21/2025 Referring Physician: Mitzi Figueroa NP Anesthesia: Versed and Fentanyl were ordered and given in my presence at 0900, procedure ended at 1005. Supervision of nurse, Elke Mae, monitored moderate sedation with 2mg Versed and 250mcg Fentanyl was provided for 65 minutes. Pre-op Diagnosis: Obstructive CAD Post-op Diagnosis: Obstructive CAD Procedure(s): Left heart catheterization with coronary angiography Access Site: Right radial artery Brief History and Clinical Indications: 75-year-old woman with hypertension who presented last month with chest discomfort admitted for inferior ST-elevation VA for which she received primary PCI and now presents for staged PCI of the mid LAD for complete revascularization. All risks, benefits and alternatives to left heart catheterization with or without percutaneous coronary intervention was discussed at length with the patient. Risk of complications including but not limited to bleeding, infection, arrhythmia, stroke, worsening kidney function, blood loss, groin hematoma, limb loss, emergency coronary artery bypass grafting, and even were discussed with the patient and all questions were answered. The patient understood and wished to proceed. Time out called, patient name, date of , medical record number, allergies, procedure performed, identify Supervisor Tunnel Heading, patient and staff member concurred with accurate data, procedure carried on. Findings: LEFT HEART CATHETERIZATION FINDINGS: 1. Left main: The left main coronary artery is widely patent without any significant obstructive disease. 2. Left anterior descending: The LAD provides 5 diagonal branches. LAD between the 1st and 2nd diagonal branch have an area of 50-60% stenosis followed by an area 80-90% stenosis. The remainder of the vessel have diffuse 20-30% stenosis. The diagonal branches are free of angiographic high-grade stenosis. 3. Left circumflex: The left circumflex artery gives off 3 OM branches. The proximal left circumflex prior to OM1 has diffuse 50% stenosis. The OM branches are small and diminutive. The remainder of the the left circumflex have luminal irregularities. 4. Ramus intermedius: Moderate caliber vessel with diffuse 10% stenosis 5. Right coronary artery: The RCA is a large dominant vessel with a patent stent. The distal RCA and its branches have luminal irregularities. 6. Left ventricle: A. End-diastolic pressure 21 mmHg. B. LV gram deferred. C. No significant gradient across aortic valve on catheter pullback. 7. Opening AO pressure 138/56 and closing AO pressure 136/63 Description of Procedure: Informed consent signed and placed in the chart. Patient transferred to medical lab scientist room. Prepped and draped in usual sterile fashion. 2% lidocaine injected subcutaneously in right wrist area. 22-gauge venipuncture catheter used to access the right radial artery under ultrasound with the modified Seldinger technique. 6-FR slender sheath placed in right radial artery. Nitroglycerin 200mcg, Verapamil 2.5mg, and Heparin 5000U was given intraarterial through the sheath. J wire advanced under fluoroscopy. 5F JR4 diagnostic catheter crossed the aortic valve. After LVEDP measurement, pull back gradient was recorded, and the catheter was used to engaged Right Coronary Artery. Procedure Description for PCI: A 6F EBU 3.0 guide catheter was used to engage the left main coronary artery. Heparin was used for anticoagulation (ACT maintained above 250) Patient loaded with heparin at 70 units/kg. 0.014 Runthrough coronary wire was passed in to the distal LAD. We attempted to bring in a 3.0 x 8mm Sudhir Hertford TERESA which was unable to cross requiring an additional 0.014 Runthrough coronary wire which served as a liya wire. This allowed for the 3.0 x 8mm [place]ford TERESA to cross into the lesion and inflated to nominal pressures after removal of our liya wire. There was a proximal edge dissection that was stented with a 3.0 x 15mm [place] TERESA in an overlapping fashion which covered the proximal diseased portion of the mid LAD as well with the help of a liya wire that was re-introduced. The overlapping portion of the stent and the proximally place stent was post dilated with a 3.0 x 8mm NC to 16atm with excellent angiographic results. Intracoronary NTG was administered and all intracoronary equipment was then removed under fluoroscopy. Follow-up angiograms showed an excellent result. Pre-procedure - REUBNE 3 flow Post-procedure - REUBEN 3 flow No angiographic complications identified. Assessment: Successful staged PCI to the mid LAD with overlapping 3.0 x 8mm and 3.0 x 15mm [place] TERESA; post dilated with a 3.0 x 8mm NC to 16atm with excellent angiographic results. Post Operative Condition: Stable No significant blood loss Disposition: Home Plan: The patient will be monitored in the recovery area. DAPT for 1 year followed by ASA indefinitely. Continue aggressive medical therapy and risk factor modification. Darrell Gomez Interventional Cardiology
--- NOTE | 2025-05-21 11:44 | P.PCNCVR_ITS ---
Cardioversion Cardioversion Date of procedure: 05/21/25 Procedure: Synchronized cardioversion Pre-op diagnosis: Paroxysmal atrial fibrillation Post-op diagnosis: Same Indications: Paroxysmal atrial fibrillation with rapid ventricular rates and acute systolic heart failure Description of procedure: After confirming no left atrial appendage thrombus on transesophageal echocardiogram, synchronized cardioversion was performed with 200 joule and subsequent successful yarsanism of sinus rhythm. Sedation: Please refer to anesthesia notes. Findings: Successful yarsanism of sinus rhythm with synchronized cardioversion of 200 joule Conclusion: Sinus rhythm Can discontinue amiodarone drip Start amiodarone oral 200 mg p.o. b.i.d. Start losartan 25 mg p.o. daily
[2025-05-21] MEDS: CLOPIDOGREL BISULFATE 75 MG TABLET (11:52)
== END 2025-05-21 15:45 | disposition home or self-care (01) ==
PROVIDERS: PCP Family Medicine; Visit Provider Internal Medicine
PROC: 4A023N7 Measurement of Cardiac Sampling and Pressure, Left Heart, Percutaneous Approach (ICD-10-PCS; CPT 93452; principal; 2025-05-21 08:30)
DX: I25.10 Atherosclerotic heart disease of native coronary artery without angina pectoris (principal); I10 Essential (primary) hypertension; I25.2 Old myocardial infarction; Z95.5 Presence of coronary angioplasty implant and graft
CPT/HCPCS: 36415; 80048; 85025; 93458; A9270; C1725; C1769; C1874; C1887; C1894; C9600; J1644; J2003; J2250; J3010; J7030; J7040

== ENCOUNTER 2025-06-08 12:31 | Outpatient (NON) | payer MEDICARE, SELFPAY ==
--- OUTSIDE RECORDS SUMMARY | 2025-06-08 12:34 | XMS_ITS | Encounter Summary ---
Author Organization [facility] Address [address] [place] [address] Care Team Providers Care Physician/Ophthalmologist Name Role Phone Truong Higgins MD Primary Care Provider [phone] Encounter Details Date Type Department Care Team (Late st Contact Info) Description 04/01/1999 Outpatient Historical HIS [facility] [place] [address] [facility] [address] [place], [place] [id number] Social History Tobacco Use Types Packs/Day Years Used Date Smoking Tobacco: Never Assessed Comments Unknown Sex and Gender Information Value Date Recorded Sex Assigned at Not on file Legal 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
--- OUTSIDE RECORDS SUMMARY | 2025-06-08 12:34 | XMS_ITS | Encounter Summary ---
Author Organization [facility] Address [address] [place] [address] Care Team Providers Care Science Job Titles Name Role Phone Truong Higgins MD Primary Care Provider [phone] Encounter Details Date Type Department Care Team (Late st Contact Info) Description 04/10/1999 Outpatient Historical HIS [facility] [place] [address] [facility] [address] [place], [place] [phone] Social History Tobacco Use Types Packs/Day Years Used Date Smoking Tobacco: Never Assessed Comments Unknown Sex and Gender Information Value Date Recorded Sex Assigned at Not on file Legal Sex Female 3:54 AM MANAGER STATISTICAL Gender Identity Not on file Sexual Orientation Not on file documented as of this encounter Plan of Treatment Not on file documented as of this encounter Visit Diagnoses Not on filedocumented in this encounter Care Teams Science Job Titles Relationship Specialty Start Date End Date Truong Higgins MD [address] [facility] [address] [place], [place] [phone] PCP - General Family Practice 10/06/18 documented as of this encounter
--- OUTSIDE RECORDS SUMMARY | 2025-06-08 12:34 | XMS_ITS | Encounter Summary ---
Author Organization [facility] Address 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 [address] [place], [place] [phone] PCP - General Family Practice 10/06/18 documented as of this encounter
--- OUTSIDE RECORDS SUMMARY | 2025-06-08 12:34 | XMS_ITS | Encounter Summary ---
Author Organization [facility] Address [address] [place] [address] Care Team Providers Care Life Guard Name Role Phone Truong Higgins MD Primary Care Provider [phone] Pricila Matias MD Primary Care Provider Dav Henry MD Unavailable [phone] Encounter Details Date Type Department Care Team (Late st Contact Info) Description 04/04/[address] 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 Gender Identity Not on file Sexual Orientation Not on file documented as of this encounter Plan of Treatment Not on file documented as of this encounter Procedures Procedure Name Priority Date/Time Associated Diagnosis Comments SCAN - RADIOLOGY/IMAGING 04/04/2025 CARDIOLOGY DOCUMENT SCAN 04/04/2025 documented in this encounter Results * SCAN - RADIOLOGY/IMAGING (04/04/2025) Anatomical Region Laterality Modality Other us Shirin Wall MOTOR RUNNER Fi nal Result * Cardiology Document Scan (04/04/2025) Anatomical Region Laterality Modality Other us Dav Henry MD CV CARDIAC SERVICES PROCEDU RES Edited Result - Final documented in this encounter Visit Diagnoses Not on filedocumented in this encounter Care Teams Life Guard Relationship Specialty Start Date End Date Truong Higgins MD [address] [address] PCP - General 10/02/16 05/03/25 Pricila Matias MD [address] [place] [address] PCP - General Family Medicine 05/04/25 Dav Henry MD [address] [place] [address] Consulting Physician Cardiology 05/07/25 documented as of this encounter
--- OUTSIDE RECORDS SUMMARY | 2025-06-08 12:34 | XMS_ITS | Clinical Summary ---
Author Organization [facility] Address [address] [place] [address] Phone Care Team Providers Care Chronometer Repairer Name Role Phone Truong Higgins MD Primary Care Provider [phone] Allergies Active Allergy Reactions Criticality Noted Date [...] on file Legal Sex Female 3:54 AM DENTAL INTERN Gender Identity Not on file Sexual Orientation [...] 02/02/2027 Insurance MEDICARE PART A AND B [employer] INS SUPP [place] [id number] Advance Directives For more information, please contact: [phone] * Full Code (Latest Code Status on File) Date Activated Date Inactivated Comments 10/07/2018 8:43 AM 10/07/2018 6:55 PM Care Teams Chronometer Repairer Relationship Specialty Start Date End Date Truong Higgins MD [facility] [address] [place] [address] PCP - General Family Practice 10/06/18
--- OUTSIDE RECORDS SUMMARY | 2025-06-08 12:34 | XMS_ITS | Encounter Summary ---
Author Organization [facility] Address 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
--- OUTSIDE RECORDS SUMMARY | 2025-06-08 12:34 | XMS_ITS | Encounter Summary ---
Author Organization [facility] Address 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
--- OUTSIDE RECORDS SUMMARY | 2025-06-08 12:34 | XMS_ITS | Clinical Summary ---
Author Organization [facility] Address [address] [place] [address] Care Team Providers Care Consulting Marine Engineer Name Role Phone Truong Higgins MD Primary Care Provider [phone] Rhoda Post DPM Unavailable [phone] Source Comments [facility],non-owned Affiliates and Associated Physician Practices is amultiple site organization consisting of ambulatory clinics and hospital sitesin [place], [place], [place] and [place]. This disclosure is being madepursuant to the Care Everywhere program and may not contain all information available regarding this patient. Last updated 18.[facility] Allergies Active Allergy Reactions Criticality Noted [...] AM CDT Legal Sex Female 6:21 AM RIM FIRE PRIMING TOOL SETTER Gender Identity Not on file Sexual Orientation Not on file Last Filed Vital Signs Vital Sign Reading Time Taken Comments Blood Pressure 168/104 06/02/2024 6:46 AM RIM FIRE PRIMING TOOL SETTER Pulse 60 06/02/2024 6:46 AM RIM FIRE PRIMING TOOL SETTER Temperature 36.4 C (97.5 F) 06/02/2024 4:24 AM RIM FIRE PRIMING TOOL SETTER Respiratory Rate 15 06/02/2024 6:46 AM RIM FIRE PRIMING TOOL SETTER Oxygen Saturation 99% 06/02/2024 6:46 AM RIM FIRE PRIMING TOOL SETTER Inhaled Oxygen Concentration - - Weight 96.2 kg (212 lb) 06/02/2024 4:24 AM RIM FIRE PRIMING TOOL SETTER Height 165.1 cm (5' 5) 06/02/2024 4:24 AM RIM FIRE PRIMING TOOL SETTER Body Mass Index 35.28 06/02/2024 4:24 AM RIM FIRE PRIMING TOOL SETTER Plan of Treatment Health Maintenance Due Date [...] COMPREHENSIVE METABOLIC PANEL STAT 06/02/2024 4:56 AM RIM FIRE PRIMING TOOL SETTER MAMMO BILAT SCREENING W SARAH Routine 05/21/2023 12:18 PM RIM FIRE PRIMING TOOL SETTER Visit for screening mammogram from Last 3 Months or Most Recently Relevant to Health Maintenance Results * (ABNORMAL) COMPREHENSIVE METABOLIC PANEL (06/02/2024 4:56 AM RIM FIRE PRIMING TOOL SETTER) Glucose 204(H) 70 - 99 mg/dL 06/02/2024 5:14 AM [facility] Sodium 135(L) 136 - 145 mmol/L 06/02/2024 5:14 AM [facility] Potassium 4.4 3.5 - 5.1 mmol/L 06/02/2024 5:14 AM [facility] Chloride 107 98 - 107 mmol/L 06/02/2024 5:14 AM [facility] CO2 13(L) 22 - 29 mmol/L 06/02/2024 5:14 AM [facility] Calcium 9.7 8.4 - 10.4 mg/dL 06/02/2024 5:14 AM [facility] Anion Gap 15 6 - 16 mmol/L 06/02/2024 5:14 AM [facility] BUN 20 7 - 26 mg/dL 06/02/2024 5:14 AM [facility] Creatinine 1.41(H) 0.57 - 1.11 mg/dL 06/02/2024 5:14 AM [facility] Alkaline Phosphatase 77 40 - 150 U/L 06/02/2024 5:14 AM [facility] ALT 27 0 - 55 U/L 06/02/2024 5:14 AM [facility] AST 23 5 - 34 U/L 06/02/2024 5:14 AM [facility] Protein Total 7.9 6.4 - 8.3 gm/dL 06/02/2024 5:14 AM [facility] Albumin 4.1 3.4 - 5.0 gm/dL 06/02/2024 5:14 AM [facility] Bilirubin Total 0.3 0.2 - 1.2 mg/dL 06/02/2024 5:14 AM [facility] eGFR by CKD-EPI 40(L) >=90 mL/min/1.7 3 m2 06/02/2024 5:14 AM [facility] Blood BLOOD SPECIMEN / Unknown Venipuncture / Unknown 06/02/2024 4:56 AM RIM FIRE PRIMING TOOL SETTER 06/02/2024 4:56 AM [facility] Earl Coleman MD LAB - CHEMISTRY ORDERABLES Rachel herrmann Result [facility] [address] [place] [address] * MAMMO BILAT SCREENING W SARAH (05/21/2023 12:18 PM RIM FIRE PRIMING TOOL SETTER) Anatomical Region Laterality Modality Breast Bilateral Mammography 05/24/2023 9:12 AM RIM FIRE PRIMING TOOL SETTER Impressions 05/24/2023 9:13 AM RIM FIRE PRIMING TOOL SETTER : No mammographic evidence of malignancy. BI-RADS Category 1: Negative Recommendation: Resume routine yearly mammography schedule for women over age 40 or return sooner if clinically indicated. > Interpreting Provider: Earl Rowland MD on 05/24/2023 9:13 AM Narrative 05/24/2023 9:13 AM RIM FIRE PRIMING TOOL SETTER Bilateral mammography. Most recent comparison: from within [...] Most Recently Relevant to Health Maintenance Insurance [facility] MEDICARE MEDICARE [employer] [place] [id number] Care Teams Consulting Marine Engineer Relationship Specialty Start Date End Date Truong Higgins MD PCP - General 10/19/17 Rhoda Post DPM [address] [phone] Podiatry 09/09/21
--- OUTSIDE RECORDS SUMMARY | 2025-06-08 12:34 | XMS_ITS | Encounter Summary ---
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 Gomez/ Mitzi, Is this okay to send? Thank you PING & RECEIVING LEAD * Telephone Encounter - Monica Thorpe - 05/24/2025 10:23 AM CST Patient requesting refill for Metoprolol 50 mg bid with 30 day supply. [facility] Thank you. Contact: PING & RECEIVING LEAD documented in this encounter Plan of Treatment Not on file documented as of this encounter Visit Diagnoses Not on filedocumented in this encounter Care Teams Auditor Relationship Specialty Start Date End Date Pricila Matias MD [address] [place] [id number] PCP - General Family Medicine 05/04/25 Dav Henry MD [address] [place] [address] DR MENDOZA [address] [place] [id number] Consulting Physician Cardiology 05/07/25 documented as of this encounter
--- OUTSIDE RECORDS SUMMARY | 2025-06-08 12:34 | XMS_ITS | Encounter Summary ---
Author Organization [facility] Address [address] [place] [address] Care Team Providers Care Terrazzo Worker Helper Name Role Phone Truong Higgins MD Primary Care Provider [phone] Encounter Details Date Type Department Care Team (Late st Contact Info) Description 04/28/1999 Outpatient Historical [facility] [place] [address] [facility] [address] [place], [place] [id number] Social History Tobacco Use Types Packs/Day Years Used Date Smoking Tobacco: Never Assessed Comments Unknown Sex and Gender Information Value Date Recorded Sex Assigned at Not on file 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
--- OUTSIDE RECORDS SUMMARY | 2025-06-08 12:35 | XMS_ITS | Encounter Summary ---
Author Organization [facility] Address 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
--- OUTSIDE RECORDS SUMMARY | 2025-06-08 12:35 | XMS_ITS | Encounter Summary ---
Author Organization [facility] Address [address] [place] [address] Care Team Providers Care Religion Instructor Name Role Phone Truong Higgins MD Primary Care Provider [phone] Encounter Details Date Type Department Care Team (Late st Contact Info) Description 02/27/1999 Outpatient Historical [facility] [place] [address] [facility] [address] [place], [place] [id number] Social History Tobacco Use Types Packs/Day Years Used Date Smoking Tobacco: Never Assessed Comments Unknown Sex and Gender Information Value Date Recorded Sex Assigned at Not on file 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
== END 2025-06-08 12:32 | disposition home or self-care (01) ==
PROVIDERS: PCP Family Medicine; Visit Provider Nurse Practitioner Family
DX: K52.9 Noninfective gastroenteritis and colitis, unspecified (principal); R19.5 Other fecal abnormalities
CPT/HCPCS: 87045; 87046; 87427